=== PATIENT | female | born 1930 | race Caucasian/White ===

== ENCOUNTER 2016-09-21 14:06 | Emergency (ER) | payer MEDICARE, OTHER ==
[~2016-09-21] VITALS: Ht 157.5 cm; Wt 60.0 kg
[2016-09-21 14:23] VITALS: BP 136/62; PULSE 81; RESP 18; TEMP 98.1; O2SAT 98
--- NOTE | 2016-09-21 14:30 | PD ---
HPI Chief Complaint: chest pain Time Seen by Provider: 14:30 Travel History International Travel<30 days: No Contact w/Intl Traveler<30days: No Traveled to known affect area: No History of Present Illness HPI Patient was sent from the intermediate with history of chest pain. She has history of dementia and currently she says she does not have any chest pain and she never did. Patient does have history of chronic chest pain and has these complains very often. Here she looks in no distress. Vital signs are stable. Patient is on Plavix and aspirin daily. She is unable to give any meaningful history given her dementia. She is very pleasant however. [facility] Past Medical History Narrative Medical List of her past medical, surgical, social and family history was reviewed from the nursing note. Social History Tobacco Use: No Allergies-Medications Comments Unknown history of allergies Narrative Medication Awaiting for the nurse to do the medical reconciliation. Review of Systems Except as stated in HPI: all other systems reviewed are Neg Physical Exam Narrative GENERAL: Awake, alert, elderly, no obvious distress, dementia SKIN: Focused skin assessment warm/dry. HEAD: Atraumatic. Normocephalic. EYES: Pupils equal and round. No scleral icterus. No injection or drainage. ENT: No nasal bleeding or discharge. Mucous membranes pink and moist. NECK: Trachea midline. No JVD. CARDIOVASCULAR: Regular rate and rhythm. No murmur appreciated. RESPIRATORY: No accessory muscle use. Clear to auscultation. Breath sounds equal bilaterally. GASTROINTESTINAL: Abdomen soft, non-tender, nondistended. Hepatic and splenic margins not palpable. MUSCULOSKELETAL: No obvious deformities. No clubbing. No cyanosis. No edema. NEUROLOGICAL: Awake and alert and dementia. No obvious cranial nerve deficits. Motor grossly within normal limits. Normal speech. PSYCHIATRIC: Appropriate mood and affect; insight and judgment normal. Data Data Last Documented VS Vital Signs Date Time Temp Pulse Resp B/P Pulse Ox O2 Delivery O2 Flow Rate FiO2 09/21/16 18:00 90 18 143/65 98 Room Air 09/21/16 14:23 98.1 Orders Electrocardiogram (09/21/16 14:35) Basic Metabolic Panel (Bmp) (09/21/16 14:35) Ckmb (Isoenzyme) Profile (09/21/16 14:35) Complete Blood Count With Diff (09/21/16 14:35) Magnesium (Mg) (09/21/16 14:35) Prothrombin Time / Inr (Pt) (09/21/16 14:35) Act Partial Throm Time (Ptt) (09/21/16 14:35) Troponin I (09/21/16 14:35) Chest, Single Ap (09/21/16 14:35) Ecg Monitoring (09/21/16 14:35) Bilateral Bp Monitoring (09/21/16 14:35) Iv Access Insert/Monitor (09/21/16 14:35) Oximetry (09/21/16 14:35) Oxygen Administration (09/21/16 14:35) Labs Laboratory Tests Test 09/21/16 14:40 White Blood Count 8.4 TH/MM3 Red Blood Count 4.16 MIL/MM3 Hemoglobin 12.5 GM/DL Hematocrit 38.2 % Mean Corpuscular Volume 91.8 FL Mean Corpuscular Hemoglobin 30.0 PG Mean Corpuscular Hemoglobin 32.7 % Concent Red Cell Distribution Width 14.1 % Platelet Count 257 TH/MM3 Mean Platelet Volume 8.3 FL Neutrophils (%) (Auto) 63.3 % Lymphocytes (%) (Auto) 26.5 % Monocytes (%) (Auto) 9.0 % Eosinophils (%) (Auto) 0.6 % Basophils (%) (Auto) 0.6 % Neutrophils # (Auto) 5.3 TH/MM3 Lymphocytes # (Auto) 2.2 TH/MM3 Monocytes # (Auto) 0.8 TH/MM3 Eosinophils # (Auto) 0.0 TH/MM3 Basophils # (Auto) 0.0 TH/MM3 CBC Comment DIFF FINAL Differential Comment Prothrombin Time 10.5 SEC Prothromb Time International 1.0 RATIO Ratio Activated Partial 21.8 SEC Thromboplast Time Sodium Level 143 MEQ/L Potassium Level 3.6 MEQ/L Chloride Level 105 MEQ/L Carbon Dioxide Level 29.4 MEQ/L Anion Gap 9 MEQ/L Blood Urea Nitrogen 11 MG/DL Creatinine 0.64 MG/DL Estimat Glomerular Filtration 88 ML/MIN Rate Random Glucose 96 MG/DL Calcium Level 9.1 MG/DL Magnesium Level 2.4 MG/DL Total Creatine Kinase 52 U/L Troponin I LESS THAN 0.02 NG/ML MDM Medical Decision Making Medical Screen Exam Complete: Yes Emergency Medical Condition: Yes Medical Record Reviewed: Yes Interpretation(s) Twelve-lead EKG was reviewed by me. Normal sinus rhythm, normal axis, nonspecific ST-T wave changes. Heart rate of 62 bpm. Differential Diagnosis ACS, nonspecific chest Narrative Course 3:54 PM all her blood work is back and within normal limit. Chest x-rays within normal limit. I will discharge her back to the intermediate for her chronic chest pain. Procedures EKG Prior to Arrival: No Diagnosis Primary Impression: Atypical chest pain Referrals: Primary Care Physician 2 days Additional Instructions: Please return to the ER if the condition worsens or any other new concerns. Otherwise follow-up with your primary care. Med/Other Pt SpecificInfo: No Change to Meds Disposition: 01 DISCHARGE HOME Condition: Stable Geoff Dc MD Sep 21, 2016 14:30 Disposition: 01 DISCHARGE HOME Condition: Stable Geoff Dc MD Sep 21, 2016 14:30
[2016-09-21 14:35] VITALS: BP 136/62; PULSE 74; RESP 18; O2SAT 97
[2016-09-21 14:37] VITALS: RESP 18; O2SAT 97
[2016-09-21 15:05] LABS: AUTOMATED NEUTROPHIL # 5.3 TH/MM3 (1.8-7.7); BASOPHIL % 0.6 % (0.0-2.0); EOSINOPHIL % 0.6 % (0.0-4.0); HEMATOCRIT 38.2 % (35.0-46.0); HEMO FLAGS DIFF FINAL; LYMPH % 26.5 % (9.0-44.0); LYMPHOCYTE # 2.2 TH/MM3 (1.0-4.8); MEAN CELL VOLUME 91.8 FL (80.0-100.0); MEAN CORPUSCULAR HGB CONC 32.7 % (32.0-36.0); NEUT % 63.3 % (16.0-70.0); PLATELET COUNT 257 TH/MM3 (150-450); RED BLOOD COUNT 4.16 MIL/MM3 (4.00-5.30); RED CELL DISTRIBUTION WIDTH 14.1 % (11.6-17.2); WHITE BLOOD COUNT 8.4 TH/MM3 (4.0-11.0)
--- NOTE | 2016-09-21 15:14 | RADRPT ---
EXAM DATE/TIME: 09/21/2016 14:58 [facility] COMPARISON: No previous studies available for comparison. INDICATIONS : Chest pain. MEDICAL HISTORY : Hypothyroidism. Hypertension SURGICAL HISTORY : None. ENCOUNTER: Initial ACUITY: 1 day PAIN SCORE: Non-responsive. LOCATION: Bilateral chest FINDINGS: A single view of the chest demonstrates the lungs to be symmetrically aerated without evidence of mas s, infiltrate or effusion. The cardiomediastinal contours are unremarkable. Osseous structures are intact. CONCLUSION: 1. No acute abnormality. The lungs are clear. Chito Concepcion MD on September 21, 2016 at 15:12 Board Certified Radiologist. This report was verified electronically.
[2016-09-21 15:27] LABS: ANION GAP 9 MEQ/L (5-15); BICARBONATE 29.4 MEQ/L (21.0-32.0); BLOOD UREA NITROGEN 11 MG/DL (7-18); CHLORIDE 105 MEQ/L (98-107); GLOMERULAR FILTRATION RATE 88 ML/MIN (>89); MAGNESIUM 2.4 MG/DL (1.5-2.5); POTASSIUM 3.6 MEQ/L (3.5-5.1); SODIUM (NA) 143 MEQ/L (136-145)
[2016-09-21 15:33] LABS: CREATINE KINASE 52 U/L (26-192)
[2016-09-21 15:39] LABS: APTT (PATIENT) 21.8 SEC (24.3-30.1); PROTHROMBIN TIME - PATIENT 10.5 SEC (9.8-11.6)
[2016-09-21 16:00] VITALS: BP 124/59; PULSE 58; RESP 18; O2SAT 97
[2016-09-21 18:00] VITALS: BP 143/65; PULSE 90; RESP 18; O2SAT 98
--- NOTE | 2016-09-22 10:34 | EKG ---
Date Performed: 09/21/2016 Time Performed: 14:53:49 PTAGE: 86 years EKG: Sinus rhythm NORMAL ECG NO PREVIOUS TRACING DOCTOR: Divya Arreola Interpretating Date/Time 09/22/2016 10:27:25
== END 2016-09-21 18:12 | disposition home or self-care (01) ==
LOC: NEPC 14:06
DX: R07.89 Other chest pain (principal); F03.90 Unspecified dementia, unspecified severity, without behavioral disturbance, psychotic disturbance, mood disturbance, and anxiety
CPT/HCPCS: 71010; 80048; 82550; 83735; 84484; 85025; 85610; 85730; 93005

== ENCOUNTER 2017-01-08 11:32 | Observation (INO) | payer MEDICARE, OTHER ==
[2017-01-08] VITALS (7 sets, daily range): BP systolic 112–201; BP diastolic 54–86; PULSE 57–69; RESP 16–22; TEMP 97.5–98.5; O2SAT 95–99
[~2017-01-08] VITALS: Ht 152.4 cm; Wt 44.0 kg
--- NOTE | 2017-01-08 11:50 | PD ---
HPI Chief Complaint: Syncope/Near-Syncope Time Seen by Provider: 11:47 Travel History International Travel<30 days: No Contact w/Intl Traveler<30days: No History of Present Illness HPI 86-year-old elderly female presents to the emergency department via EMS for evaluation after syncopal episode that occurred prior to arrival. Patient has history of dementia and is not a reliable historian. According to EMS, the staff at the nursing facility reported that she may have had a seizure and had incontinence. However, she was not postictal it has no seizure history. The patient is alert and oriented to self only. 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 Dr. James came in to see patient and states patient was having periods of unresponsiveness and seizure activity with incontinence. He states patient is at her baseline now mentally. He would like workup completed and admitted. PFSH Past Medical History Hx Anticoagulant Therapy: Yes Alzheimer's Disease: Yes Cardiovascular Problems: Yes High Cholesterol: Yes Dementia: Yes Diabetes: No Hypertension: Yes Thyroid Disease: Yes Social History Alcohol Use: No Tobacco Use: No Substance Use: No Review of Systems Except as stated in HPI: all other systems reviewed are Neg Physical Exam Exam Limitations: Poor Historian Narrative GENERAL: Well-nourished, well-developed elderly female patient, afebrile. Patient is alert and oriented to self only. SKIN: Focused skin assessment warm/dry. HEAD: Normocephalic. Atraumatic. EYES: No scleral icterus. No injection or drainage. NECK: Supple, trachea midline. No JVD or lymphadenopathy. CARDIOVASCULAR: Regular rate and rhythm without murmurs, gallops, or rubs. RESPIRATORY: Breath sounds equal bilaterally. No accessory muscle use. Lungs sounds are clear to auscultation. GASTROINTESTINAL: Abdomen soft, non-tender, nondistended. MUSCULOSKELETAL: No cyanosis, or edema. Patient moves all extremities spontaneously. She does not follow commands. BACK: Nontender without obvious deformity. No CVA tenderness. Data Data Last Documented VS Vital Signs Date Time Temp Pulse Resp B/P Pulse Ox O2 Delivery O2 Flow Rate FiO2 01/08/17 13:13 69 01/08/17 12:02 150/66 01/08/17 11:42 97.5 22 99 Orders Electrocardiogram (01/08/17 11:45) Complete Blood Count With Diff (01/08/17 11:45) Comprehensive Metabolic Panel (01/08/17 11:45) Magnesium (Mg) (01/08/17 11:45) Ckmb (Isoenzyme) Profile (01/08/17 11:45) Troponin I (01/08/17 11:45) Act Partial Throm Time (Ptt) (01/08/17 11:45) Prothrombin Time / Inr (Pt) (01/08/17 11:45) Urinalysis - C+S If Indicated (01/08/17 11:45) Chest, Single Ap (01/08/17 11:45) Ct Brain W/O Iv Contrast(Rout) (01/08/17 11:45) Ecg Monitoring (01/08/17 11:45) Iv Access Insert/Monitor (01/08/17 11:45) Oximetry (01/08/17 11:45) Cath For Specimen (01/08/17 11:45) Labs Laboratory Tests Test 01/08/17 01/08/17 11:50 12:25 White Blood Count 10.0 TH/MM3 Red Blood Count 3.96 MIL/MM3 Hemoglobin 12.3 GM/DL Hematocrit 37.0 % Mean Corpuscular Volume 93.5 FL Mean Corpuscular Hemoglobin 31.1 PG Mean Corpuscular Hemoglobin 33.2 % Concent Red Cell Distribution Width 14.2 % Platelet Count 315 TH/MM3 Mean Platelet Volume 7.9 FL Neutrophils (%) (Auto) 63.3 % Lymphocytes (%) (Auto) 25.7 % Monocytes (%) (Auto) 10.3 % Eosinophils (%) (Auto) 0.3 % Basophils (%) (Auto) 0.4 % Neutrophils # (Auto) 6.3 TH/MM3 Lymphocytes # (Auto) 2.6 TH/MM3 Monocytes # (Auto) 1.0 TH/MM3 Eosinophils # (Auto) 0.0 TH/MM3 Basophils # (Auto) 0.0 TH/MM3 CBC Comment DIFF FINAL Differential Comment Prothrombin Time 10.2 SEC Prothromb Time International 0.9 RATIO Ratio Activated Partial 22.9 SEC Thromboplast Time Sodium Level 138 MEQ/L Potassium Level 3.4 MEQ/L Chloride Level 102 MEQ/L Carbon Dioxide Level 27.7 MEQ/L Anion Gap 8 MEQ/L Blood Urea Nitrogen 12 MG/DL Creatinine 0.66 MG/DL Estimat Glomerular Filtration 85 ML/MIN Rate Random Glucose 80 MG/DL Calcium Level 9.0 MG/DL Magnesium Level 2.2 MG/DL Total Bilirubin 0.4 MG/DL Aspartate Amino Transf 20 U/L (AST/SGOT) Alanine Aminotransferase 17 U/L (ALT/SGPT) Alkaline Phosphatase 49 U/L Total Creatine Kinase 52 U/L Troponin I LESS THAN 0.02 NG/ML Total Protein 6.8 GM/DL Albumin 3.6 GM/DL Urine Color YELLOW Urine Turbidity CLEAR Urine pH 6.5 Urine Specific [place] 1.011 Urine Protein NEG mg/dL Urine Glucose (UA) NEG mg/dL Urine Ketones NEG mg/dL Urine Occult Blood TRACE Urine Nitrite NEG Urine Bilirubin NEG Urine Urobilinogen LESS THAN 2.0 MG/DL Urine Leukocyte Esterase NEG Urine RBC 3 /hpf Urine WBC 1 /hpf Urine Squamous Epithelial <1 /hpf Cells Microscopic Urinalysis Comment CULT NOT INDICATED MDM Medical Decision Making Medical Screen Exam Complete: Yes Emergency Medical Condition: Yes Medical Record Reviewed: Yes Interpretation(s) cxr - CONCLUSION: No acute disease. CT brain - CONCLUSION: 1. No acute intracranial abnormality is identified. 2. Encephalomalacia in the left parietal lobe likely related to old ischemia. Other chronic changes include generalized atrophy and periventricular white matter low attenuation characteristic of chronic microvascular ischemia. Differential Diagnosis Intracranial abnormality versus electrolyte abnormality versus cardiac arrhythmia versus ACS versus UTI Narrative Course 86-year-old elderly female presents to the emergency department for evaluation after a syncopal episode and possible seizure. Patient is alert and oriented to self only. Patient is a poor historian. EKG, CBC, CMP, magnesium, CK, troponin, PTT, PTT/INR, UA are ordered and pending. Chest x-ray and CT of the brain are ordered and pending. EKG shows sinus bradycardia, HR [address] changes. CBC shows no acute abnormality. CMP shows no acute abnormality. Magnesium is 2.2. CK is 52. Troponin is less than 0.02. Coags show no acute abnormality. UA is negative for acute infection. Chest x-ray shows no acute disease. CT of the brain shows no acute intracranial abnormality is identified; encephalomalacia in the left parietal lobe likely related to old ischemia. Other chronic changes include generalized atrophy and periventricular white matter low attenuation characteristic of chronic microvascular ischemia. Dr. James accepted admission. Diagnosis Primary Impression: Syncope Qualified Code: R55 - Syncope, unspecified syncope type Admitting Information Admitting Physician Requests: Observation Dara Moran Jan 08, 2017 11:50
[2017-01-08 12:08] LABS: AUTOMATED NEUTROPHIL # 6.3 TH/MM3 (1.8-7.7); BASOPHIL % 0.4 % (0.0-2.0); EOSINOPHIL % 0.3 % (0.0-4.0); HEMO FLAGS DIFF FINAL; LYMPH % 25.7 % (9.0-44.0); LYMPHOCYTE # 2.6 TH/MM3 (1.0-4.8); MEAN CELL VOLUME 93.5 FL (80.0-100.0); MEAN CORPUSCULAR HEMOGLOBIN 31.1 PG (27.0-34.0); MEAN CORPUSCULAR HGB CONC 33.2 % (32.0-36.0); MONO % 10.3 % (0.0-8.0); NEUT % 63.3 % (16.0-70.0); PLATELET COUNT 315 TH/MM3 (150-450); RED BLOOD COUNT 3.96 MIL/MM3 (4.00-5.30); RED CELL DISTRIBUTION WIDTH 14.2 % (11.6-17.2)
[2017-01-08 12:22] LABS: APTT (PATIENT) 22.9 SEC (24.3-30.1); INTERNATIONAL NORMALIZED RATIO 0.9 RATIO; PROTHROMBIN TIME - PATIENT 10.2 SEC (9.8-11.6)
[2017-01-08 12:25] LABS: ALT (GPT) 17 U/L (10-53); ANION GAP 8 MEQ/L (5-15); AST (GOT) 20 U/L (15-37); BICARBONATE 27.7 MEQ/L (21.0-32.0); BLOOD UREA NITROGEN 12 MG/DL (7-18); CHLORIDE 102 MEQ/L (98-107); GLOMERULAR FILTRATION RATE 85 ML/MIN (>89); MAGNESIUM 2.2 MG/DL (1.5-2.5); POTASSIUM 3.4 MEQ/L (3.5-5.1); SODIUM (NA) 138 MEQ/L (136-145)
[2017-01-08 12:28] LABS: ALKALINE PHOSPHATASE 49 U/L (45-117); TOTAL BILIRUBIN ADULT 0.4 MG/DL (0.2-1.0)
[2017-01-08 12:39] LABS: CREATINE KINASE 52 U/L (26-192)
--- NOTE | 2017-01-08 12:47 | RADRPT ---
EXAM DATE/TIME: 01/08/2017 11:58 [facility] COMPARISON: No previous studies available for comparison. INDICATIONS : Shortness of breath. MEDICAL HISTORY : None. SURGICAL HISTORY : None. ENCOUNTER: Initial ACUITY: 1 day PAIN SCORE: Non-responsive. LOCATION: Bilateral chest FINDINGS: A single view of the chest demonstrates the lungs to be symmetrically aerated without evidence of mas s, infiltrate or effusion. The cardiomediastinal contours are unremarkable. Osseous structures are intact. CONCLUSION: No acute disease. Darrin Kirkland MD on January 08, 2017 at 12:46 Board Certified Radiologist. This report was verified electronically.
--- NOTE | 2017-01-08 13:05 | RADRPT ---
EXAM DATE/TIME: 01/08/2017 12:39 [facility] COMPARISON: No previous studies available for comparison. INDICATIONS : Syncopal episode today. RADIATION DOSE: 56.35 CTDIvol (mGy) MEDICAL HISTORY : Cardiovascular disease. Alzheimer's. Dementia.Hypertension. SURGICAL HISTORY : None. ENCOUNTER: Initial ACUITY: 1 day PAIN SCALE: 0/10 LOCATION: cranial TECHNIQUE: Multiple contiguous axial images were obtained of the head. Using automated exposure control and adj ustment of the mA and/or kV according to patient size, radiation dose was kept as low as reasonably a chievable to obtain optimal diagnostic quality images. DICOM format image data is available electro nically for review and comparison. FINDINGS: CEREBRUM: There is moderate generalized cerebral atrophy. Ventricles are prominent but within normal limits giv en the degree of atrophy present. There is ex vacuo dilatation of the left lateral ventricle posterio rly related to encephalomalacia in the left parietal lobe. There is moderate to severe periventricula r white matter low attenuation. No evidence of midline shift, mass lesion, hemorrhage or acute infarc tion. No extra-axial fluid collections are seen. POSTERIOR FOSSA: The cerebellum and brainstem demonstrate no acute finding. The 4th ventricle is midline. The cerebe llopontine angle is unremarkable. EXTRACRANIAL: Visualized sinuses are clear. SKULL: The calvaria is intact. No evidence of skull fracture. CONCLUSION: 1. No acute intracranial abnormality is identified. 2. Encephalomalacia in the left parietal lobe likely related to old ischemia. Other chronic changes i nclude generalized atrophy and periventricular white matter low attenuation characteristic of chronic microvascular ischemia. Oscar Rich MD on January 08, 2017 at 13:01 Board Certified Radiologist. This report was verified electronically.
[2017-01-08 13:26] LABS: BLOOD, URINE TRACE (NEG); COMMENT (UR) CULT NOT INDICATED; CULTURE IF INDICATED CULT NOT INDICATED; GLUCOSE,URINE NEG (NEG); KETONE, URINE NEG (NEG); NITRITE,URINE NEG (NEG); PH, URINE 6.5 (5.0-8.5); SQUAMOUS EPITHELIAL CELL URINE <1 /hpf (0-5); URINE COLOR YELLOW (YELLW/STRAW)
[2017-01-08] MEDS ORDERED: MAGNESIUM HYDROXIDE SUSP 30 ML CUP PO PRN (14:00)
[2017-01-08] MEDS ORDERED: SODIUM CHLORIDE 0.9% FLUSH 10 ML FLUSH IV FLUSH PRN (14:00)
[2017-01-08] MEDS ORDERED: BISACODYL 10 MG SUPP RECTAL PRN (14:00)
[2017-01-08] MEDS ORDERED: NALOXONE HCL 0.4 MG/ML AMP IV PRN (14:00)
[2017-01-08] MEDS: SODIUM CHLOR 0.45% 1000 ML INJ 1,000 ML IV SCH (14:00)
[2017-01-08] MEDS ORDERED: SENNOSIDES 8.6 MG TAB PO PRN (14:00)
[2017-01-08] MEDS ORDERED: LACTULOSE SYRUP 20 GM/30 ML CUP PO PRN (14:00)
[2017-01-08] MEDS ORDERED: ONDANSETRON HCL 4 MG/2 ML VIAL IVP PRN (14:00)
[2017-01-08] MEDS ORDERED: LEVO.05 PO (14:11)
[2017-01-08] MEDS ORDERED: PLAV75TA29 PO (14:11)
[2017-01-08] MEDS ORDERED: LOVA10TA PO (14:11)
[2017-01-08] MEDS ORDERED: NAME5TAB2 PO (14:11)
[2017-01-08] MEDS ORDERED: ASPI1TAB91 PO (14:11)
[2017-01-08] MEDS ORDERED: LACT10SO5 PO (14:11)
[2017-01-08] MEDS ORDERED: ARIC5TAB2 PO (14:11)
[2017-01-08] MEDS ORDERED: LISI20TA PO (14:11)
[2017-01-08] MEDS ORDERED: NIFE30TA61 PO (14:11)
[2017-01-08] MEDS ORDERED: LORA-392 PO ×2 (14:11)
--- NOTE | 2017-01-08 14:18 | HP.UPD ---
H&P Update Note seen, examined by myself, Dr James, today the emergency department room c 36 A 86-year-old female resident of a local group home She has a history of dementia No history of seizure Had numerous episodes this morning of minutes of unresponsiveness while sitting on the wheelchair with shaking her arms and her head Associated urinary incontinence No post ictal phase Alert between episodes Blood pressure significantly elevated He denies any specific complaints Head CT negative Workup otherwise negative We'll place on observation EEG Neurology evaluation Urinalysis with culture Full history and physical to follow Lorraine James MD Jan 08, 2017 14:15
[2017-01-08] MEDS ORDERED: POTASSIUM CHLORIDE 25 MEQ EFFERVESCENT TAB PO ONE (14:30)
--- NOTE | 2017-01-08 14:52 | HHI.PR ---
Objective Objective Results - Vital Signs Date Time Temp Pulse Resp B/P Pulse Ox O2 Delivery O2 Flow Rate FiO2 01/08/17 13:13 69 01/08/17 12:02 150/66 01/08/17 11:42 97.5 60 22 201/86 99 Result Diagram: 01/08/17 1150 01/08/17 1150 A/P Assessment and Plan Hypokalemia treated with PO Potassium, recheck BMP in am. [id number] Lety CoronelP Jan 08, 2017 14:52
--- NOTE | 2017-01-08 16:10 | MH ---
cc: JOAO FUNK MD DATE OF ADMISSION: 01/08/2017 DATE OF : 1930 TRAVEL: Travel in the last 30 days, none. HISTORY OF PRESENT ILLNESS This is a pleasant 86-year-old patient with Alzheimer's dementia. She currently is in a assisted setting, she was be evaluated this morning per Dr. Funk and some of the staff. When the patient appeared to be having seizures, accompanied with recurrent urinary incontinence, the patient does have a significant history of a cerebrovascular accident with right -sided deficits and Alzheimer's dementia. According to the record the patient was not post ictal but has no history of seizures. The patient was also having periods of unresponsiveness with seizure activity, The patient is denies any headache. She suffers from chronic altered mental status secondary to her dementia. FAMILY HISTORY: Family history is basically unable to obtain. PAST MEDICAL HISTORY: 1. Unable to obtain. According to the record the medical history; 2. Alzheimer's dementia. 3. History of anticoagulant therapy. 4. Cardiovascular disease. 5. Hyperlipidemia 6. Dementia 7. hypotension 8. Thyroid disease. SOCIAL HISTORY: The patient did say she was , denies any tobacco, alcohol or illicit drug use which she is also agreeable with the record. ALLERGIES NO KNOWN ALLERGIES. MEDICATIONS 1. Lactulose. 2. Lisinopril 3. Hydrochlorothiazide. 4. Lorazepam. 5. Namenda 6. Nifedipine 7. Lovastatin 8. Aspirin 9. Aricept 10. Plavix 11. Synthroid. REVIEW OF SYSTEMS Unable to obtain secondary to altered mental status. Secondary to her dementia. PHYSICAL EXAMINATION: VITAL SIGNS: Temperature is 97, pulse 60, respirations 20-22, blood pressure initially on admission 201/86 and now 150/66. Telemetry shows a sinus rhythm in the 60s to 80s, O2 sat 99. The patient is on room air. IN GENERAL: Thin, borderline frail, elderly white female, looks to be her stated age resting in the bed. She does attempt to answer questions, and becomes conversational, but is disoriented to person, place, time and situation. The patient was having periods of unresponsiveness, and seizure activity. SKIN: The skin is pink, warm and dry. HEAD, EYES, EARS, NOSE, AND THROAT: Atraumatic, normocephalic. Pupils equal, round, reactive to light and accommodation. No square least with no week she does eat. NECK: Neck is supple. CARDIOVASCULAR SYSTEM: S1-S2 regular rate and rhythm. No murmurs were O2 gallops probable. RESPIRATORY: Essentially clear anteriorly and posteriorly with no wheezes, rales or rhonchi. ABDOMEN: Flat, soft, nontender, nondistended. Active bowel sounds. 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 NEUROLOGY: Neurologically she is awake, responds to simple questions, pleasantly and appropriately. She does attempt to get up on her own, out of the bed. PSYCHIATRIC: Psychiatric mood and affect are appropriate without restlessness. DIAGNOSTIC DATA White blood count 10, red blood cells 3.96. Hemoglobin 12.3, hematocrit 37. Differential blood count shows monocyte percentage auto 10.3, otherwise negative findings. PT/INR 0.9. Chemistry sodium 138, potassium to report for chloride 102 carbon dioxide 27.7, amnion gap 8, BUN 12, creatinine 0.66, GFR 80. Random glucose 80, troponin is less than 0.02. Urine is yellow clear, pH 6.5, specific gravity 1.011 and negative for protein, glucose, ketones, nitrates, bilirubin and leukocyte esterase. Trace of occult blood less than two urobilinogen. Urinary culture is not needed. Head CT shows no acute intracranial abnormalities, encephalomalacia in left parietal lobe, likely related to old ischemia. Other chronic changes include generalized atrophy and Periventricular white matter, low attenuation, characteristic of chronic microvascular ischemia. Chest x-ray No acute disease. ASSESSMENT/PLAN 1. Seizure disorder, witnessed. 2. Possible syncopal episode, unspecified. Rule out any dysrhythmia. 3. Hypokalemia mild. 4. History Alzheimer's dementia. 5. Hyperlipidemia. 6. Hypertension, uncontrolled on admission. PLAN: 1. The plan is to admit initially for observation. 2. We will monitor ECG 3. Reconcile medications 4. Monitor for vital signs q four hours. 5. Neurologic checks q four hours. 6. Activity; out of bed but only with assistance. 7. Placed on heart healthy diet. 8. Sequential compression devices for DVT prophylaxis. 9. We will give her Pepcid for peptic ulcer disease prophylaxis. 10. Maintaining her on telemetry and/or ECG monitoring. 11. Plan of care; mild IV hydration. 12. Plan of care and hospital course will be based on the patient's symptoms, the plan has been discussed with Dr. Funk and we will continue to follow. Joao Funk MD DICTATED BY: CANDY Alexis /2:46 PM /3:08 PM
[2017-01-08] MEDS: DOCUSATE SODIUM 50 MG/SENNA 8.6 MG TAB PO SCH (20:59)
[2017-01-08] MEDS: SODIUM CHLORIDE 0.9% FLUSH 10 ML FLUSH IV FLUSH SCH (21:00)
[2017-01-08] MEDS ORDERED: LACTULOSE PO SCH (21:00)
[2017-01-08] MEDS ORDERED: DONEPEZIL HCL 5 MG TAB PO SCH (21:00)
[2017-01-08] MEDS: PRAVASTATIN SOD 10 MG TAB PO SCH (21:00)
[2017-01-08] MEDS: NIFEdipine 30 MG SUSTAINED RELEASE TAB PO SCH (21:00)
[2017-01-08] MEDS: MEMANTINE HCL 5 MG TAB PO SCH (23:09)
[2017-01-09] VITALS (11 sets, daily range): BP systolic 109–154; BP diastolic 49–69; PULSE 46–65; RESP 14–20; TEMP 95.9–98.9; O2SAT 95–100
[2017-01-09] MEDS: SODIUM CHLOR 0.45% 1000 ML INJ 1,000 ML IV SCH ×2 (02:58→16:40)
[2017-01-09 06:06] LABS: BICARBONATE 24.6 MEQ/L (21.0-32.0); POTASSIUM 3.7 MEQ/L (3.5-5.1)
[2017-01-09 06:18] LABS: AUTOMATED NEUTROPHIL # 4.9 TH/MM3 (1.8-7.7); BASOPHIL % 0.5 % (0.0-2.0); EOSINOPHIL # 0.1 TH/MM3 (0-0.4); HEMATOCRIT 34.2 % (35.0-46.0); HEMO FLAGS DIFF FINAL; LYMPH % 33.3 % (9.0-44.0); LYMPHOCYTE # 2.9 TH/MM3 (1.0-4.8); MEAN CELL VOLUME 91.3 FL (80.0-100.0); MEAN CORPUSCULAR HEMOGLOBIN 30.9 PG (27.0-34.0); MEAN CORPUSCULAR HGB CONC 33.8 % (32.0-36.0); MONO % 9.9 % (0.0-8.0); NEUT % 55.3 % (16.0-70.0); PLATELET COUNT 260 TH/MM3 (150-450); RED BLOOD COUNT 3.74 MIL/MM3 (4.00-5.30); RED CELL DISTRIBUTION WIDTH 13.8 % (11.6-17.2); WHITE BLOOD COUNT 8.8 TH/MM3 (4.0-11.0)
[2017-01-09] MEDS: LEVOTHYROXINE SODIUM 50 MCG TAB PO SCH (06:27)
--- NOTE | 2017-01-09 08:03 | HHI.PR ---
Subjective Subjective Remarks demented, pleasant, oriented to self follows commands poor historian daughter at [facility], endorses hx of similar episodes in the past. Evaluated at [facility], neuro work up, not sure on EEG. Has never been tried on seizure meds. At one point they thought it was stress vs vascular dementia progression. Takes Ativan for anxiety and panic attacks. States she has frequent episodes where she starts shaking then becomes very tired and almost passes out. Yesterday's was more severe. noted with bradycardia overnight, HR down to 39. Not on any meds, no prior hx, doesn't see ext js developer. Daughter endorses, pt. demented but able to feed self, ambulates with assistance , recognizes family. Review of Systems Constitutional Constitutional Remarks 12 point ros unable to obtain Vitals/Results Intake & Output 01/08/17 01/08/17 01/09/17 15:00 23:00 07:00 Intake Total 1234 ml Balance 1234 ml Intake Oral 120 ml IV Total 1114 ml # Voids 3 Vital Signs Vital Signs Date Time Temp Pulse Resp B/P Pulse Ox O2 Delivery O2 Flow Rate FiO2 01/09/17 03:14 97.8 46 16 141/65 100 01/09/17 00:00 47 01/08/17 23:12 98.0 57 17 127/81 95 01/08/17 19:46 98.2 57 16 112/54 96 01/08/17 15:21 76 18 165/74 100 01/08/17 13:30 98.5 63 16 150/70 99 01/08/17 13:13 69 01/08/17 12:02 150/66 01/08/17 11:42 97.5 60 22 201/86 99 CBC/BMP: 01/09/17 0430 01/09/17 0430 Lab Results Laboratory Tests Test 01/08/17 01/08/17 01/09/17 11:50 12:25 04:30 White Blood Count 10.0 TH/MM3 8.8 TH/MM3 Red Blood Count 3.96 MIL/MM3 3.74 MIL/MM3 Hemoglobin 12.3 GM/DL 11.6 GM/DL Hematocrit 37.0 % 34.2 % Mean Corpuscular Volume 93.5 FL 91.3 FL Mean Corpuscular Hemoglobin 31.1 PG 30.9 PG Mean Corpuscular Hemoglobin 33.2 % 33.8 % Concent Red Cell Distribution Width 14.2 % 13.8 % Platelet Count 315 TH/MM3 260 TH/MM3 Mean Platelet Volume 7.9 FL 8.6 FL Neutrophils (%) (Auto) 63.3 % 55.3 % Lymphocytes (%) (Auto) 25.7 % 33.3 % Monocytes (%) (Auto) 10.3 % 9.9 % Eosinophils (%) (Auto) 0.3 % 1.0 % Basophils (%) (Auto) 0.4 % 0.5 % Neutrophils # (Auto) 6.3 TH/MM3 4.9 TH/MM3 Lymphocytes # (Auto) 2.6 TH/MM3 2.9 TH/MM3 Monocytes # (Auto) 1.0 TH/MM3 0.9 TH/MM3 Eosinophils # (Auto) 0.0 TH/MM3 0.1 TH/MM3 Basophils # (Auto) 0.0 TH/MM3 0.0 TH/MM3 CBC Comment DIFF FINAL DIFF FINAL Differential Comment Prothrombin Time 10.2 SEC Prothromb Time International 0.9 RATIO Ratio Activated Partial 22.9 SEC Thromboplast Time Sodium Level 138 MEQ/L 134 MEQ/L Potassium Level 3.4 MEQ/L 3.7 MEQ/L Chloride Level 102 MEQ/L 101 MEQ/L Carbon Dioxide Level 27.7 MEQ/L 24.6 MEQ/L Anion Gap 8 MEQ/L 8 MEQ/L Blood Urea Nitrogen 12 MG/DL 11 MG/DL Creatinine 0.66 MG/DL 0.58 MG/DL Estimat Glomerular Filtration 85 ML/MIN 99 ML/MIN Rate Random Glucose 80 MG/DL 88 MG/DL Calcium Level 9.0 MG/DL 8.6 MG/DL Magnesium Level 2.2 MG/DL Total Bilirubin 0.4 MG/DL Aspartate Amino Transf 20 U/L (AST/SGOT) Alanine Aminotransferase 17 U/L (ALT/SGPT) Alkaline Phosphatase 49 U/L Total Creatine Kinase 52 U/L Troponin I LESS THAN 0.02 NG/ML Total Protein 6.8 GM/DL Albumin 3.6 GM/DL Urine Color YELLOW Urine Turbidity CLEAR Urine pH 6.5 Urine Specific [place] 1.011 Urine Protein NEG mg/dL Urine Glucose (UA) NEG mg/dL Urine Ketones NEG mg/dL Urine Occult Blood TRACE Urine Nitrite NEG Urine Bilirubin NEG Urine Urobilinogen LESS THAN 2.0 MG/DL Urine Leukocyte Esterase NEG Urine RBC 3 /hpf Urine WBC 1 /hpf Urine Squamous Epithelial <1 /hpf Cells Microscopic Urinalysis Comment CULT NOT INDICATED Physical Exam General General Appearance: Well Developed, Well Nourished, No Acute Distress, Comfortable Eyes Eye Exam: Pupils Equal, Pupils Reactive Ears & Nose Ears & Nose Exam: Nasal Mucosa [place] Throat Throat Exam: Oral Mucosa [place] & Moist Neck Neck Exam: Neck Supple, Trachea Midline Pulmonary Resp Exam: Clear Bilaterally Cardiology CV Exam: Regular, Good Perfusion, Bradycardia Gastrointestinal/Abdomen GI Exam: Soft, Non-Tender, Bowel Sounds Present, Non-Distended Musculoskeletal MS Exam: Joints Intact Integumentary Skin Exam: Warm, Dry Extremeties Extremities Exam: No Edema, Pedal Pulses Palpable Neurologic Neuro Exam: Alert, Awake, Speech Clear, Moving All Extremities, No Focal Deficits VTE Prophylaxis VTE Prophylaxis Device: SCDs Assessment/Plan Problem List: (1) Seizure (2) Syncope (3) Bradycardia (4) Dementia (5) Hypertension (6) History of CVA with residual deficit (7) Hypothyroid (8) Anxiety (9) Hyperlipidemia Assessment/Plan 86-year-old elderly female with history of periods of shaking with unresponsiveness, possible syncope, has had frequent episodes in the past with neuro workup at another facility. Possible new onset seizures-patient's daughter [facility], has never been on antiseizure medications. History of CVA with residual -Continue neuro checks Seizure precautions Restart Ativan 0.5 mg by mouth every 8 when necessary for anxiety, seizure -Consult neurology for evaluation Continuous cardiac telemetry EEG -Check carotid ultrasound We'll check TSH, B12, RPR -Continue Plavix and aspirin Possible syncope, noted bradycardic, patient is not on any beta blockers Continue his cardiac telemetry Consult cardiology for evaluation 2-D echo has been ordered Dementia Continue home medications Hypothyroid We'll check TSH Continue home medication Hypertension, initially elevated now improved Continue with home medications Hyperlipidemia Continue with home medications SCDs for DVT prophylaxis Consult physical therapy for evaluation, out of bed We will wait for further recommendations from cardiology and neurology. Patient not ready for discharge Discussed with patient's daughter Discussed with RN Discussed with Dr. Morris This patient was seen by myself and Dr. Morris, this note is written on her behalf Problem Qualifiers (1) Syncope: Qualified Code: R55 - Syncope, unspecified syncope type (2) Dementia: (3) Hypertension: Qualified Code: I10 - Essential hypertension (4) Hypothyroid: Qualified Code: E03.9 - Hypothyroidism, unspecified type (5) Hyperlipidemia: Qualified Code: E78.5 - Hyperlipidemia, unspecified hyperlipidemia type Miguelina Gee Jan 09, 2017 08:03
[2017-01-09] MEDS: SODIUM CHLORIDE 0.9% FLUSH 10 ML FLUSH IV FLUSH SCH ×2 (09:00→20:27)
[2017-01-09] MEDS ORDERED: NON-FORMULARY DRUG (Lisinopril-Hctz 1 TAB) PO SCH (09:00)
[2017-01-09] MEDS: LISINOPRIL 20 MG TAB PO SCH (09:12)
[2017-01-09] MEDS: DOCUSATE SODIUM 50 MG/SENNA 8.6 MG TAB PO SCH ×2 (09:12→20:26)
[2017-01-09] MEDS: CLOPIDOGREL 75 MG TAB PO SCH (09:12)
[2017-01-09] MEDS: MEMANTINE HCL 5 MG TAB PO SCH ×2 (09:12→20:26)
[2017-01-09] MEDS: HYDROCHLOROTHIAZIDE 25 MG TAB PO SCH (09:12)
[2017-01-09] MEDS: ASPIRIN EC 81 MG TABEC PO SCH (09:12)
--- NOTE | 2017-01-09 09:48 | RADRPT ---
EXAM DATE/TIME: 01/09/2017 08:43 [place] COMPARISON: No previous studies available for comparison. INDICATIONS : Syncope. MEDICAL HISTORY : Hyperthyroidism. Dementia. Alzheimer's. CVA with right sided deficits. Hypercholesterolemia. HTN. UTI s. Anticoagulant therapy. SURGICAL HISTORY : None. ENCOUNTER: Initial ACUITY: 2 days PAIN SCORE: Nonresponsive. LOCATION: Bilateral neck PEAK SYSTOLIC VELOCITIES (cm/sec): ICA/CCA RATIO: Right: 1.0 Left: 0.9 ICA: Right: 78 Left: 72 CCA: Right: 75 Left: 82 ECA: Right: 84 Left: 87 VERTEBRAL: Right: 48 antegrade Left: 62 antegrade Elevated flow velocities and ICA/CCA ratios have been found to correlate with increased degrees of vessel stenosis, calculated as percentage of diameter relative to a normal segment of distal ICA/CCA FINDINGS: Antegrade flow is seen in both vertebral arteries. There is mild atherosclerotic plaquing at the orig in of both ICAs without any significant stenosis. CONCLUSION: No evidence for hemodynamically significant stenosis. John Willingham MD on January 09, 2017 at 9:46 Board Certified Radiologist. This report was verified electronically.
--- NOTE | 2017-01-09 12:29 | EKG ---
Date Performed: 01/08/2017 Time Performed: 12:22:35 PTAGE: 86 years EKG: SINUS BRADYCARDIA Since previous tracing, no significant change noted BORDERLINE ECG PREVIOUS TRACING : 09/21/2016 14.53 DOCTOR: Juan David Fontenot Interpretating Date/Time 01/09/2017 12:24:37
--- NOTE | 2017-01-09 16:14 | MB ---
cc: JACOBO STAUFFER MD DATE OF CONSULTATION 01/09/17 REASON FOR CONSULTATION Bradycardia. HISTORY OF PRESENT ILLNESS Ms. Odom is a pleasant 86-year-old female who has dementia. Her history was given by her daughter. She apparently has been having episodes where the patient staggers and shakes. Recently, she has had some accompanying urinary incontinence. The patient denies any other cardiac complaints. The daughter notes that her heart rate in the past typically had been around 60. She reports that she has not had any significant cardiac history. PAST MEDICAL HISTORY Significant for dementia, hyperlipidemia and hypothyroidism. SOCIAL HISTORY The patient does not drink or smoke. She lives in a long-term. REVIEW OF SYSTEMS Unobtainable. FAMILY HISTORY Unobtainable. PHYSICAL EXAMINATION VITAL SIGNS: On physical examination vital signs 98.5, 52, 14, 137/63. GENERAL: in general, she is a pleasantly confused elderly lady who is in no apparent distress. NECK: Her neck is free from JVD. LUNGS: The lungs are bilaterally clear to auscultation. CARDIOVASCULAR: Examination she has a normal S1-S2. I did not appreciate any murmurs, rubs or gallops. ABDOMEN: The abdomen is soft. EXTREMITIES: The extremities are free from edema. DATA Telemetry-this does show periods of bradycardia down around 40. I did not appreciate any pauses. IMPRESSION Bradycardia-the patient has been on Aricept which is known to cause bradycardia. I would simply discontinue this. I do not feel that she needs to be observed any further in the hospital at this point. I will follow up with her as an outpatient. It is not clear as we have not been able to establish direct correlation with her events, as to whether they are related to cardiac etiology. At this point there does not appear to be any direct correlation. Hypertension-the patient's blood pressure is a bit labile. We will observe this for now. May wish to increase the lisinopril. I will be available on a p.r.n. basis. Cris Quinones/[place] /2:48 PM /4:08 PM
--- NOTE | 2017-01-09 18:38 | MB ---
cc: LATRELL MENDIOLA MD DATE OF CONSULTATION: 01/09/2017. REASON FOR CONSULTATION: Seizures. HISTORY OF PRESENT ILLNESS: Mrs. Odom is an 86-year-old female with history of dementia. Her daughter is at the bedside and states that she has had a possible seizure episode. The patient's daughter has not witnessed this episode; however, she states that she was confused with body shaking her arms and her head. The daughter states that she has witnessed episodes where she starts shaking and becomes stiff and there is an associated urinary incontinence. No tongue biting or foaming and no postictal confusional state.Upon arrival, the blood pressure was elevated and the heart rate was in the mid 50s. The patient has history of stroke in 2010 with right-sided weakness and dysphasia. REVIEW OF SYSTEMS: A twelve-point review of systems was negative except as stated in the history of present illness. FAMILY HISTORY: Noncontributory PAST MEDICAL HISTORY: 1. Alzheimer's dementia. 2. History of stroke, left SALES ENABLEMENT MANAGER. 3. Hyperlipidemia. 4. Hypotension. 5. Thyroid disease. SOCIAL HISTORY: She lives in a intermediate. She is . Denies any tobacco, alcohol or illicit drug use. ALLERGIES: NO KNOWN DRUG ALLERGIES. MEDICATIONS: 1. Lactulose. 2. Lisinopril. 3. Hydrochlorothiazide. 4. Lorazepam. 5. Namenda. 6. Nifedipine. 7. Lovastatin. 8. Aspirin. 9. Aricept. 10. Plavix. 11. Synthroid. PHYSICAL EXAMINATION: GENERAL: Awake, alert, oriented to person, not place or time. She is pleasantly demented, not in acute distress. HEAD, EYES, EARS, NOSE, THROAT: Atraumatic, normocephalic. Intact hearing. Intact vision. RESPIRATORY: Clear to auscultation. No wheezes. CARDIOVASCULAR: Regular rate and rhythm. ABDOMEN: Soft, nontender. MUSCULOSKELETAL: No clubbing, no cyanosis and moves four extremities equally. NEUROLOGICAL EXAMINATION: Awake, alert, oriented to person, not to time, to place. Mild dysphasia. Abnormal reading, writing comprehension, agnosia, dysgraphia, not able to perform cerebellar, sensory and motor functions accurately due to the dysphasic symptoms and the baseline dementia. However, she moves her extremities with mild spasticity on the right upper and lower extremities. Reflexes 2+ bilateral symmetrical. Plantars right upgoing, left downgoing PSYCHIATRIC: Calm, cooperative. LABORATORY DATA: WBC 8.8, hemoglobin 11.6, platelet count 260,000. Sodium 134, potassium 3.7, BUN 11, creatinine 0.58, magnesium 2.2, AST 20, ALT 70, alkaline phosphatase 49. Vitamin B12 495. TSH 0.997. INR 0.9. Urine unremarkable. DIAGNOSTIC IMAGING: - Head CT scan w/o revealed no acute intracranial abnormality. Encephalomalacia in the left parietal lobe, likely related to old ischemia with chronic changes, generalized atrophy and periventricular white matter, low attenuation characteristic of chronic microvascular ischemia. - Carotid ultrasound - no evidence hemodynamically significant stenosis. DIAGNOSTIC IMPRESSION: Seizure disorder. Dementia Remote stroke with mild residual right sided weakness PLAN: 1. Neuro checks q. 4 hourly. 2. Aspirin 81 milligrams daily. 3. Plavix 75 milligrams daily. 4. Discontinue Aricept in light of the bradycardia. 5. EEG. 6. Keppra 500 milligrams twice daily. 7. Seizure precautions. 8. Fall precautions. 9. DVT prophylaxis. 10. Physical therapy and occupational therapy recommendations are appreciated. Thank you for the opportunity to participate in the care of your patient. MD VIANEY [place]/JONY /5:52 PM /6:31 PM MISAEL
[2017-01-09] MEDS: levETIRAcetam 500 MG TAB PO SCH (20:26)
[2017-01-09] MEDS: PRAVASTATIN SOD 10 MG TAB PO SCH (20:26)
[2017-01-09] MEDS: NIFEdipine 30 MG SUSTAINED RELEASE TAB PO SCH (20:29)
[2017-01-10 00:26] VITALS: PULSE 58
[2017-01-10 04:00] VITALS: PULSE 44
[2017-01-10 04:32] VITALS: BP 112/55; PULSE 58; RESP 18; TEMP 97.9; O2SAT 95
--- NOTE | 2017-01-10 05:12 | MG ---
cc: LATRELL PERALES MD Sex: F REFERRING PHYSICIAN: Dr. James DATE OF 1930 MEDICAL HISTORY Possible seizure episodes, dementia, Alzheimer's disease, stroke with right-sided deficits, hypercholesteremia, disease, depression. MEDICATIONS 1. Synthroid. 2. Aricept. 3. Pravachol. 4. Namenda. 5. Proventil 6. Plavix. 7. Aspirin 8. HydroDIURIL. DESCRIPTION The background activity is 8-9 Hz alpha located posteriorly bilateral and symmetrical, attenuates to eye opening. Hyperventilation was not performed. Photic stimulation did not elicit driving response. There were no electrographic seizures or epileptiform discharges noted. INTERPRETATION This is a normal awake EEG recording. Absence of electrographic seizures or epileptiform discharges does not rule out a diagnosis of seizure disorder. Clinical correlation is recommended. Latrell Perales MD [facility]/[place] /11:41 PM /4:41 AM [facility]PITALXimena
[2017-01-10] MEDS: SODIUM CHLOR 0.45% 1000 ML INJ 1,000 ML IV SCH (05:50)
[2017-01-10] MEDS: LEVOTHYROXINE SODIUM 50 MCG TAB PO SCH (05:50)
--- NOTE | 2017-01-10 07:34 | HHI.PR ---
Subjective Subjective Remarks demented, pleasant, oriented to self follows commands poor historian daughter at [facility], no seizures observed has been out of bed with assistance and ambulated to bathroom HR better, up to 50s, had one episode of tachycardia last night unable to obtain ROS Review of Systems Constitutional Constitutional Remarks 12 point ros unable to obtain Vitals/Results Intake & Output 01/09/17 01/09/17 01/10/17 15:00 23:00 07:00 Intake Total 240 ml 120 ml Balance 240 ml 120 ml Intake Oral 240 ml 120 ml # Voids 3 2 1 Vital Signs Vital Signs Date Time Temp Pulse Resp B/P Pulse Ox O2 Delivery O2 Flow Rate FiO2 01/10/17 04:32 97.9 58 18 112/55 95 01/10/17 04:00 44 01/10/17 00:26 58 01/09/17 23:48 95.9 55 20 114/58 95 01/09/17 20:00 52 01/09/17 19:42 97.3 55 20 109/49 95 01/09/17 16:15 54 01/09/17 15:44 98.9 65 16 117/58 97 01/09/17 12:26 59 01/09/17 12:00 98.5 52 14 137/63 98 01/09/17 08:13 53 01/09/17 08:00 97.5 54 16 154/69 97 CBC/BMP: 01/09/17 0430 01/09/17 0430 Physical Exam General General Appearance: Well Developed, Well Nourished, No Acute Distress, Comfortable Eyes Eye Exam: Pupils Equal, Pupils Reactive Ears & Nose Ears & Nose Exam: Nasal Mucosa [place] Throat Throat Exam: Oral Mucosa [place] & Moist Neck Neck Exam: Neck Supple, Trachea Midline Pulmonary Resp Exam: Clear Bilaterally Cardiology CV Exam: Regular, Good Perfusion, Bradycardia Gastrointestinal/Abdomen GI Exam: Soft, Non-Tender, Bowel Sounds Present, Non-Distended Musculoskeletal MS Exam: Joints Intact Integumentary Skin Exam: Warm, Dry Extremeties Extremities Exam: No Edema, Pedal Pulses Palpable Neurologic Neuro Exam: Alert, Awake, Speech Clear, Moving All Extremities, No Focal Deficits VTE Prophylaxis VTE Prophylaxis Device: SCDs Assessment/Plan Problem List: (1) Seizure (2) Syncope (3) Bradycardia (4) Dementia (5) Hypertension (6) History of CVA with residual deficit (7) Hypothyroid (8) Anxiety (9) Hyperlipidemia Assessment/Plan 86-year-old elderly female with history of periods of shaking with unresponsiveness, possible syncope, has had frequent episodes in the past with neuro workup at another facility. Possible new onset seizures-patient's daughter endorses frequent episodes at [facility], has never been on antiseizure medications. History of CVA with residual -Continue neuro checks Seizure precautions continue Ativan 0.5 mg by mouth every 8 when necessary for anxiety, seizure -appreciate Dr. Perales's input, recommends Keppra, has been started -EEG no seizures noted. Continuous cardiac telemetry -carotid ultrasound ok, no stenosis TSH, B12, RPR ok -Continue Plavix and aspirin Possible syncope, noted bradycardic, patient is not on any beta blockers Continue his cardiac telemetry appreciate card input -Aricept stopped as it can cause bradycardia 2-D echo has been ordered, pending -card cleared for dc Dementia off Aricept due to bradycardia Hypothyroid TSH ok Continue home medication Hypertension, initially elevated now improved Continue with home medications Hyperlipidemia Continue with home medications SCDs for DVT prophylaxis PT, OOB with assist CM for dc planning, plan to dc today back to facility after echo is done F/U neurology F/U cardiology if needed F/U PCP Diet-heart healthy Activity-as tolerated Discussed with patient's daughter Discussed with RN Discussed with Dr. Morris This patient was seen by myself and Dr. Morris, this note is written on her behalf Discharge Minutes: 45 Problem Qualifiers (1) Syncope: Qualified Code: R55 - Syncope, unspecified syncope type (2) Dementia: (3) Hypertension: Qualified Code: I10 - Essential hypertension (4) Hypothyroid: Qualified Code: E03.9 - Hypothyroidism, unspecified type (5) Hyperlipidemia: Qualified Code: E78.5 - Hyperlipidemia, unspecified hyperlipidemia type Miguelina Gee Jan 10, 2017 07:34 (4) Hypothyroid: Qualified Code: E03.9 - Hypothyroidism, unspecified type (5) Hyperlipidemia: Qualified Code: E78.5 - Hyperlipidemia, unspecified hyperlipidemia type Miguelina Gee Jan 10, 2017 07:34
[2017-01-10 07:39] VITALS: BP 133/60; PULSE 53; RESP 16; TEMP 97.8; O2SAT 96
[2017-01-10 07:50] VITALS: PULSE 53
[2017-01-10] MEDS ORDERED: LEVE500 PO (08:20)
--- NOTE | 2017-01-10 08:21 | HHI.DCPOC ---
Discharge Care Plan Diagnosis: (1) Seizure Your Health Problems Are: Anxiety Difficulty with ADL Goals to Promote Your Health * To prevent worsening of your condition and complications * To maintain your health at the optimal level Directions to Meet Your Goals Take your medications as prescribed Follow your dietary instruction Follow activity as directed Keep your appointments as scheduled Take your immunizations and boosters as scheduled If your symptoms worsen call your PCP, if no PCP go to Urgent Care Center or Emergency Room Smoking is Dangerous to Your Health. Avoid second hand smoke Call the 24-hour hour crisis hotline for domestic abuse at Miguelina Gee. [facility] Jan 10, 2017 08:21
--- NOTE | 2017-01-10 08:23 | HHI.DS ---
Discharge Summary Admission Date Jan 08, 2017 at 13:55 Discharge Date: Jan 10, 2017 Admitting Diagnosis syncope, possible seizure activity (1) Seizure (2) Bradycardia (3) Dementia (4) Syncope (5) Anxiety (6) Hyperlipidemia (7) Hypertension (8) Hypothyroid (9) History of CVA with residual deficit CBC/BMP: 01/09/17 0430 01/09/17 0430 Significant Findings Laboratory Tests Test 01/08/17 01/08/17 01/09/17 11:50 12:25 04:30 Red Blood Count 3.96 MIL/MM3 3.74 MIL/MM3 (4.00-5.30) (4.00-5.30) Monocytes (%) (Auto) 10.3 % 9.9 % (0.0-8.0) (0.0-8.0) Monocytes # (Auto) 1.0 TH/MM3 (0-0.9) Activated Partial 22.9 SEC Thromboplast Time (24.3-30.1) Potassium Level 3.4 MEQ/L (3.5-5.1) Estimat Glomerular Filtration 85 ML/MIN (>89) Rate Troponin I LESS THAN 0.02 NG/ML (0.02-0.05) Urine Occult Blood TRACE (NEG) Hematocrit 34.2 % (35.0-46.0) Sodium Level 134 MEQ/L (136-145) Hospital Course 86-year-old elderly female who was brought in from a local custodial with an episode of shaking, with patient becoming difficult to arouse, possibly syncopal. Patient poor historian, history of dementia. daughter at bsd, endorses hx of similar episodes in the past. Evaluated at [facility], neuro work up done, not sure on EEG. HaD never been tried on seizure meds. At one point they thought it was stress vs vascular dementia progression. Takes Ativan for anxiety and panic attacks. States she has frequent episodes where she starts shaking then becomes very tired and almost passes out. The date of admission, episode was most severe. Patient was brought into the hospital where she was evaluated. CT of the head was negative. During hospitalization was noted with bradycardia, , HR down to 39. Not on any meds, no prior hx, doesn't see roller staker. Daughter endorses, pt. demented but able to feed self, ambulates with assistance , recognizes family. Patient admitted for (1) Seizure (2) Syncope (3) Bradycardia (4) Dementia (5) Hypertension (6) History of CVA with residual deficit (7) Hypothyroid (8) Anxiety (9) Hyperlipidemia During the course of the hospitalization, the following took place 86-year-old elderly female with history of periods of shaking with unresponsiveness, possible syncope, has had frequent episodes in the past with neuro workup at another facility. Possible new onset seizures-patient's daughter endorses frequent episodes at custodial facility, has never been on antiseizure medications. History of CVA with residual -Put on neuro checks and neuro checks and seizure precautions continue Ativan 0.5 mg by mouth every 8 when necessary for anxiety, seizure -appreciated Dr. Perales's input, recommended Keppra, patient tolerated well. -EEG done, no seizures noted. Continuous cardiac telemetry -carotid ultrasound ok, no stenosis TSH, B12, RPR ok -Continued Plavix and aspirin Possible syncope, noted bradycardic, patient was not on any beta blockers Continue his cardiac telemetry Cardiology consulted, recommended to discontinue Aricept as it can cause bradycardia 2-D echo has been ordered, however daughter didn't want to wait and wanted to do it as outpatient. -card cleared for dc Dementia off Aricept due to bradycardia Hypothyroid TSH ok Continue home medication Hypertension, initially elevated now improved Continue with home medications Hyperlipidemia Continue with home medications Case management consulted for discharge planning SCDs for DVT prophylaxis PT, OOB with assist Patient had no seizure episodes, no syncope. CM for dc planning, patient discharge back to SNF. Daughter to do echo as outpatient. F/U neurology F/U cardiology if needed F/U PCP Diet-heart healthy Activity-as tolerated Pt Condition on Discharge: Stable Discharge Disposition: Discharge to SNF Discharge Instructions DIET: Follow Instructions for: Heart Healthy Diet Activities you can perform: Weight Bearing as Jovani Other Activity Instructions: FALL PRECAUTIONS SEIZURE PRECAUTIONS Follow up Referrals: Neurology - 2 Weeks with Jonn Perales MD PCP Follow-up New Medications: Levetiracetam (Keppra) 500 Mg Tab 500 MG PO Q12HR Seizure Control #60 Ref 0 TAB Continued Medications: Aspirin DR (Aspirin Adult Low Strength) 81 Mg Tabdr 81 MG PO DAILY CVA TAB Clopidogrel (Plavix) 75 Mg Tab 75 MG PO DAILY CVA #30 Ref 0 TAB Lactulose (Lactulose) 10 Gm/15 Ml Solution 30 ML PO BID Stop date: 01/09/2017 Days 3 Levothyroxine (Synthroid) 50 Mcg Tab 50 MCG PO DAILY Thyroid #30 Ref 0 TAB Lisinopril-Hctz (Lisinopril-Hctz) 20-12.5 Mg Tab 1 TAB PO DAILY Hold if SBP <100 or DBP <60 Blood Pressure Management #30 Ref 0 TAB Lovastatin (Lovastatin) 10 Mg Tab 10 MG PO HS Cholesterol Management #30 Ref 0 TAB Memantine (Namenda) 5 Mg Tab 5 MG PO BID Alzheimer Disease #60 Ref 0 TAB Nifedipine ER 24 HR (Nifedipine ER 24 HR) 30 Mg Tab 30 MG PO HS Hold if SBP <100 or DBP <60 HTN #30 Ref 0 TAB Discontinued Medications: Donepezil HCl (Aricept) 5 Mg Tablet 5 MG PO HS Lorazepam (Ativan) 0.5 Mg Tab 0.5 MG PO Q12HR PRN ANXIETY Ref 0 TAB Lorazepam (Ativan) 0.5 Mg Tab 0.5 MG PO BID Twice a day in the am & hs Anxiety Ref 0 TAB iMguelina Gee [facility] Jan 10, 2017 08:23
[2017-01-10] MEDS: DOCUSATE SODIUM 50 MG/SENNA 8.6 MG TAB PO SCH (09:00)
[2017-01-10] MEDS: HYDROCHLOROTHIAZIDE 25 MG TAB PO SCH (09:03)
[2017-01-10] MEDS: CLOPIDOGREL 75 MG TAB PO SCH (09:03)
[2017-01-10] MEDS: levETIRAcetam 500 MG TAB PO SCH (09:03)
[2017-01-10] MEDS: MEMANTINE HCL 5 MG TAB PO SCH (09:03)
[2017-01-10] MEDS: LISINOPRIL 20 MG TAB PO SCH (09:03)
[2017-01-10] MEDS: SODIUM CHLORIDE 0.9% FLUSH 10 ML FLUSH IV FLUSH SCH (09:04)
[2017-01-10] MEDS: ASPIRIN EC 81 MG TABEC PO SCH (09:04)
[2017-01-10 11:36] VITALS: BP 149/72; PULSE 67; RESP 20; TEMP 98.7; O2SAT 96
== END 2017-01-10 16:24 | disposition home or self-care (01) ==
LOC: NEPC 11:32 → NEDA 13:55 → NEPGCP 15:38
PROVIDERS: ADMIT Specialist; ATTEND Specialist
DX: G40.909 Epilepsy, unspecified, not intractable, without status epilepticus (principal); E87.6 Hypokalemia; R41.82 Altered mental status, unspecified; R55 Syncope and collapse; R00.1 Bradycardia, unspecified; R06.02 Shortness of breath; G30.9 Alzheimer's disease, unspecified; F02.80 Dementia in other diseases classified elsewhere, unspecified severity, without behavioral disturbance, psychotic disturbance, mood disturbance, and anxiety; E78.5 Hyperlipidemia, unspecified; I10 Essential (primary) hypertension; R32 Unspecified urinary incontinence; E07.9 Disorder of thyroid, unspecified; E03.9 Hypothyroidism, unspecified; E78.00 Pure hypercholesterolemia, unspecified; G93.89 Other specified disorders of brain; F32.9 Major depressive disorder, single episode, unspecified; F41.9 Anxiety disorder, unspecified; G31.9 Degenerative disease of nervous system, unspecified; E05.90 Thyrotoxicosis, unspecified without thyrotoxic crisis or storm; I70.90 Unspecified atherosclerosis; I69.351 Hemiplegia and hemiparesis following cerebral infarction affecting right dominant side; I69.321 Dysphasia following cerebral infarction; Z79.02 Long term (current) use of antithrombotics/antiplatelets; Z79.899 Other long term (current) drug therapy; Z79.82 Long term (current) use of aspirin; Z79.01 Long term (current) use of anticoagulants
CPT/HCPCS: 70450; 71010; 80048; 80053; 81001; 82550; 82607; 83735; 84443; 84484; 85025; 85610; 85730; 93005; 93880; 95819; 97162; 99285; G0378; G8987; G8988; P9612

== ENCOUNTER 2017-04-27 09:19 | Emergency (ER) | payer MEDICARE, OTHER ==
[~2017-04-27] VITALS: Ht 160 cm; Wt 50.0 kg
[~2017-04-27 09:19] MED LIST: ASPI81TA16 PO; LACT10SO5 PO; LEVE500 PO; LEVO.05 PO; LISI20TA PO; LOVA10TA PO; NAME5TAB2 PO; NIFE30TA61 PO; PLAV75TA29 PO
[2017-04-27 09:28] VITALS: BP 121/60; PULSE 74; RESP 16; TEMP 97.4; O2SAT 96
[2017-04-27] MEDS ORDERED: [UNRECOGNIZED DRUG - CODE] PO (09:42)
[2017-04-27] MEDS ORDERED: AMINLIQ7 PO (09:42)
[2017-04-27] MEDS ORDERED: SERO25TA PO (09:42)
--- NOTE | 2017-04-27 09:48 | PD ---
HPI . Fall Chief Complaint: Fall Time Seen by Provider: 09:45 Travel History International Travel<30 days: No Contact w/Intl Traveler<30days: No Traveled to known affect area: No History of Present Illness HPI This is a demented patient from a fdc who had a trip and fall this morning. They are concerned that she struck her head and she is on Plavix. She was sent to us for a CT. This patient is unable to give any history. PFSH Past Medical History Hx Anticoagulant Therapy: Yes Alzheimer's Disease: Yes Anemia: Yes Depression: Yes Cardiovascular Problems: Yes High Cholesterol: Yes Cerebrovascular Accident: Yes (rt side) Dementia: Yes Diabetes: No Genitourinary: Yes Hypertension: Yes Neurologic: Yes (CVA 2010 W/RT SIDE DEFICITS) Immunizations Current: Yes Thyroid Disease: Yes (HYPERTHYROID) Tetanus Vaccination: Unknown ?: Not Past Surgical History Surgical History: Unable to Obtain Social History Alcohol Use: No Tobacco Use: No Substance Use: No Allergies-Medications (Allergen,Severity, Reaction): Coded Allergies: No Known Allergies (Unverified Adverse Reaction, Unknown, 04/27/17) Reported Meds & Prescriptions Reported Meds & Active Scripts Active Keppra (Levetiracetam) 500 Mg Tab 500 Mg PO Q12HR Reported Seroquel (Quetiapine Fumarate) 25 Mg Tab 25 Mg PO BID Pro-Stat (Amino Acids-Protein Hydrolysat) 15 Gram-100 Kcal/30 Ml Liq 30 Ml PO BID Uti-Stat Liq (Cranberry-Vitamin C-Inulin Liq) 1 Liq 30 Ml PO 5 PM Nifedipine ER 24 HR (Nifedipine) 30 Mg Tab 30 Mg PO HS Hold if SBP <100 or DBP <60 Lovastatin 10 Mg Tab 10 Mg PO HS Lisinopril-Hctz 20-12.5 Mg Tab 1 Tab PO DAILY Hold if SBP <100 or DBP <60 Lactulose 10 Gm/15 Ml Solution 30 Ml PO BID 3 Days Stop date: 01/09/2017 Namenda (Memantine) 5 Mg Tab 5 Mg PO BID Synthroid (Levothyroxine Sodium) 50 Mcg Tab 50 Mcg PO DAILY Aspirin Adult Low Strength (Aspirin) 81 Mg Tabdr 81 Mg PO DAILY Plavix (Clopidogrel Bisulfate) 75 Mg Tab 75 Mg PO DAILY Review of Systems ROS Limitations: Poor Historian Physical Exam Narrative GENERAL: The patient is awake and alert. She is able to tell me her name. SKIN: Warm and dry. Intact. HEAD: Normocephalic/atraumatic. EYES: Pupils are equal. Extraocular movements are intact. NECK: Neck has full range of motion. No apparent pain. RESPIRATORY: Nonlabored respirations. MUSCULOSKELETAL: She allows movement of all major joints without any apparent pain. There are no obvious deformities. No bruising or swelling. NEUROLOGICAL: Awake and alert. No cranial nerve deficits. Moving all 4 extremities equally. Demented. PSYCHIATRIC: Unable to assess. Data Data Last Documented VS Vital Signs Date Time Temp Pulse Resp B/P (MAP) Pulse Ox O2 Delivery O2 Flow Rate FiO2 04/27/17 09:28 97.4 74 16 121/60 (80) [address] Brain W/O Iv Contrast(Rout) (04/27/17 09:45) [facility] Medical Decision Making Medical Screen Exam Complete: Yes Emergency Medical Condition: Yes Differential Diagnosis My differential diagnosis of head trauma includes but is not limited to scalp contusion, concussion, intracerebral hemorrhage. Narrative Course This patient presents for evaluation of possible head injury. CT: 1. Stable noncontrast head CT. No acute intracranial abnormality is identified. 2. Stable chronic findings include encephalomalacia in the left parietal lobe and generalized cerebral atrophy with chronic white matter changes. Diagnosis Primary Impression: Fall Qualified Codes: W19.XXXA - Unspecified fall, initial encounter Patient Instructions: Fall Prevention for Older Adults (DC), General Instructions Disposition: 01 DISCHARGE HOME Condition: Stable Lory Mcleod MD Apr 27, 2017 09:48
--- NOTE | 2017-04-27 10:24 | RADRPT ---
EXAM DATE/TIME: 04/27/2017 09:58 [facility] COMPARISON: CT BRAIN W/O CONTRAST, January 08, 2017, 12:39. INDICATIONS : Patient fell, change in mental status RADIATION DOSE: 56.35 CTDIvol (mGy) MEDICAL HISTORY : Dementia. Cerebrovascular disease. Cardiovascular disease SURGICAL HISTORY : None. ENCOUNTER: Initial ACUITY: 1 day PAIN SCALE: Non-responsive LOCATION: Bilateral cranial TECHNIQUE: Multiple contiguous axial images were obtained of the head. Using automated exposure control and adj ustment of the mA and/or kV according to patient size, radiation dose was kept as low as reasonably a chievable to obtain optimal diagnostic quality images. DICOM format image data is available electro nically for review and comparison. FINDINGS: CEREBRUM: There is moderate generalized cerebral atrophy. Ventricles are prominent but within normal limits giv en the degree of atrophy present. There is expected dilatation of the left lateral ventricle posterio rly related to encephalomalacia in the left parietal lobe. There is moderate to severe stable periven tricular white matter low attenuation. No evidence of midline shift, mass lesion, hemorrhage or acut e infarction. No extra-axial fluid collections are seen. POSTERIOR FOSSA: The cerebellum and brainstem demonstrate no acute finding. The 4th ventricle is midline. The cerebe llopontine angle is unremarkable. EXTRACRANIAL: Visu sinuses are clear. SKULL: The calvaria is intact. No evidence of skull fracture. CONCLUSION: 1. Stable noncontrast head CT. No acute intracranial abnormality is identified. 2. Stable chronic findings include encephalomalacia in the left parietal lobe and generalized cerebra l atrophy with chronic white matter changes. Oscar Rich MD on April 27, 2017 at 10:17 Board Certified Radiologist. This report was verified electronically.
== END 2017-04-27 11:14 | disposition home or self-care (01) ==
LOC: NEPE 09:19
DX: S09.90XA Unspecified injury of head, initial encounter (principal); G30.9 Alzheimer's disease, unspecified; F02.80 Dementia in other diseases classified elsewhere, unspecified severity, without behavioral disturbance, psychotic disturbance, mood disturbance, and anxiety; D64.9 Anemia, unspecified; I10 Essential (primary) hypertension; E05.90 Thyrotoxicosis, unspecified without thyrotoxic crisis or storm; I69.951 Hemiplegia and hemiparesis following unspecified cerebrovascular disease affecting right dominant side; F32.9 Major depressive disorder, single episode, unspecified; W01.0XXA Fall on same level from slipping, tripping and stumbling without subsequent striking against object, initial encounter
CPT/HCPCS: 70450

== ENCOUNTER 2017-06-18 11:11 | Emergency (ER) | payer MEDICARE, OTHER ==
[~2017-06-18] VITALS: Ht 152.4 cm; Wt 46.0 kg
[~2017-06-18 11:11] MED LIST changes: +AMINLIQ7 PO; +SERO25TA PO; +[UNRECOGNIZED DRUG - CODE] PO
[2017-06-18] MEDS ORDERED: IOHEXOL 350 MG/ML 10 ML VIAL (for RAD DIAG) IVCONTRAST ONE (11:12)
[2017-06-18 11:18] VITALS: BP 136/61; PULSE 74; RESP 16; TEMP 97.8; O2SAT 98
[2017-06-18] MEDS ORDERED: SODIUM CHLORIDE 0.9% FLUSH 10 ML FLUSH IV FLUSH PRN (11:45)
[2017-06-18 11:56] VITALS: RESP 16; O2SAT 99
[2017-06-18] MEDS ORDERED: NAME10TA PO (12:12)
[2017-06-18 12:21] LABS: AUTOMATED NEUTROPHIL # 7.1 TH/MM3 (1.8-7.7); BASOPHIL % 0.4 % (0.0-2.0); EOSINOPHIL # 0.1 TH/MM3 (0-0.4); EOSINOPHIL % 0.6 % (0.0-4.0); HEMATOCRIT 31.5 % (35.0-46.0); HEMOGLOBIN 10.3 GM/DL (11.6-15.3); LYMPH % 20.9 % (9.0-44.0); LYMPHOCYTE # 2.2 TH/MM3 (1.0-4.8); MEAN CELL VOLUME 93.5 FL (80.0-100.0); MEAN CORPUSCULAR HEMOGLOBIN 30.5 PG (27.0-34.0); MEAN CORPUSCULAR HGB CONC 32.6 % (32.0-36.0); MEAN PLATELET VOLUME 9.4 FL (7.0-11.0); MONO % 9.5 % (0.0-8.0); NEUT % 68.6 % (16.0-70.0); PLATELET COUNT 289 TH/MM3 (150-450); RED BLOOD COUNT 3.37 MIL/MM3 (4.00-5.30); RED CELL DISTRIBUTION WIDTH 14.1 % (11.6-17.2); WHITE BLOOD COUNT 10.4 TH/MM3 (4.0-11.0)
--- NOTE | 2017-06-18 12:29 | PD ---
HPI Chief Complaint: Abdominal Pain Time Seen by Provider: 11:24 Travel History International Travel<30 days: No Contact w/Intl Traveler<30days: No Traveled to known affect area: No History of Present Illness HPI 87-year-old female that presents to the ED for evaluation of abdominal pain. Per Dr. Gutierres was most of the information patient has been having abdominal pain on and off for the past 2 weeks. Comes and goes. Movement makes it worse. Per daughter that been doing a lot of testing at the nursing facility were she's been. They checked her heart as well as an ultrasound and x-rays to make sure patient doesn't have any fractures. This all has been negative. Pain is not consistent and comes and goes. Pain happened today before coming to the ED which is what prompted evaluation. Per family M.D. at the facility wanted patient to have a CT which is what she was sent here for. She does take Plavix. Denies any falls. She didn't having bowel movements that have been normal. No blood in the stool per family and facility. Patient currently has no complaints and has no pain. Patient has significant history of dementia, old stroke, taking chronic anxiety medications and unfortunately is not a good historian secondary to her significant dementia. Most of the history is obtained from family member. Patient herself is happily confused. Patient cannot give me a number for her pain but per family member appears to be severe to the point where she stops doing everything and only last for a couple of minutes. PFSH Past Medical History Hx Anticoagulant Therapy: Yes (PLAVIX/ ASA) Alzheimer's Disease: Yes Anemia: Yes Depression: Yes Cardiovascular Problems: Yes High Cholesterol: Yes Cerebrovascular Accident: Yes (rt side) Dementia: Yes Diabetes: No Diminished Hearing: No Genitourinary: Yes Hypertension: Yes Neurologic: Yes (CVA 2011 W/RT SIDE DEFICITS) Immunizations Current: Yes Thyroid Disease: Yes (HYPERTHYROID) Tetanus Vaccination: < 5 Years Influenza Vaccination: Yes ?: Not Menopausal: Yes : 3 Para: 3 Past Surgical History Surgical History: No Previous Surgery Social History Alcohol Use: No Tobacco Use: No Substance Use: No Allergies-Medications (Allergen,Severity, Reaction): Coded Allergies: No Known Allergies (Verified Adverse Reaction, Unknown, 06/18/17) Reported Meds & Prescriptions Reported Meds & Active Scripts Active Azithromycin 250 Mg Tab 250 Mg PO DIRECTED Take 2 tabs (500 mg) on day 1 then 1 tab daily x 4 days. Keppra (Levetiracetam) 500 Mg Tab 500 Mg PO Q12HR Reported Namenda (Memantine) 10 Mg Tab 10 Mg PO BID Seroquel (Quetiapine Fumarate) 25 Mg Tab 25 Mg PO BID Pro-Stat (Amino Acids-Protein Hydrolysat) 15 Gram-100 Kcal/30 Ml Liq 30 Ml PO BID Uti-Stat Liq (Cranberry-Vitamin C-Inulin Liq) 1 Liq 30 Ml PO 5 PM Nifedipine ER 24 HR (Nifedipine) 30 Mg Tab 30 Mg PO HS Hold if SBP <100 or DBP <60 Lovastatin 10 Mg Tab 10 Mg PO HS Lisinopril-Hctz 20-12.5 Mg Tab 1 Tab PO DAILY Hold if SBP <100 or DBP <60 Lactulose 10 Gm/15 Ml Solution 30 Ml PO BID 3 Days Stop date: 01/09/2017 Namenda (Memantine) 5 Mg Tab 5 Mg PO BID Synthroid (Levothyroxine Sodium) 50 Mcg Tab 50 Mcg PO DAILY Aspirin Adult Low Strength (Aspirin) 81 Mg Tabdr 81 Mg PO DAILY Plavix (Clopidogrel Bisulfate) 75 Mg Tab 75 Mg PO DAILY Review of Systems ROS Limitations: Poor Historian Except as stated in HPI: all other systems reviewed are Neg Physical Exam Exam Limitations: Poor Historian Narrative GENERAL: SKIN: Warm and dry. HEAD: Atraumatic. Normocephalic. EYES: Pupils equal and round. No scleral icterus. No injection or drainage. ENT: No nasal bleeding or discharge. Mucous membranes pink and moist. Tongue is midline. No uvula deviation. NECK: Trachea midline. No JVD. CARDIOVASCULAR: Regular rate and rhythm. No murmurs, S3, S4. RESPIRATORY: No accessory muscle use. Clear to auscultation. Breath sounds equal bilaterally. GASTROINTESTINAL: Abdomen soft, non-tender, nondistended. Hepatic and splenic margins not palpable. MUSCULOSKELETAL: Extremities without clubbing, cyanosis, or edema. No obvious deformities. Full range of motion of the upper and lower extremities bilaterally. 2+ pulses bilaterally. NEUROLOGICAL: Awake and alert. No obvious cranial nerve deficits. Motor grossly within normal limits. Five out of 5 muscle strength in the arms and legs. Normal speech. PSYCHIATRIC: Appropriate mood and affect; insight and judgment normal. Data Data Last Documented VS Vital Signs Date Time Temp Pulse Resp B/P (MAP) Pulse Ox O2 Delivery O2 Flow Rate FiO2 06/18/17 13:52 97.8 76 16 141/70 (93) 99 Room Air Orders Orders Complete Blood Count With Diff (06/18/17 11:35) Comprehensive Metabolic Panel (06/18/17 11:35) Lipase (06/18/17 11:35) Lactic Acid (06/18/17 11:35) Urinalysis - C+S If Indicated (06/18/17 11:35) Iv Access Insert/Monitor (06/18/17 11:35) Ecg Monitoring (06/18/17 11:35) Oximetry (06/18/17 11:35) Sodium Chloride 0.9% Flush (Ns Flush) (06/18/17 11:45) Ammonia (06/18/17 11:55) Ct Abd/Pel W Iv Contrast(Rout) (06/18/17 ) Iohexol 350 Inj (Omnipaque 350 Inj) (06/18/17 11:12) Ceftriaxone Inj (Rocephin Inj) (06/18/17 15:15) Azithromycin Inj (Zithromax Inj) (06/18/17 15:15) Ed Discharge Order (06/18/17 15:09) Labs Laboratory Tests Test 06/18/17 11:50 White Blood Count 10.4 TH/MM3 Red Blood Count 3.37 MIL/MM3 Hemoglobin 10.3 GM/DL Hematocrit 31.5 % Mean Corpuscular Volume 93.5 FL Mean Corpuscular Hemoglobin 30.5 PG Mean Corpuscular Hemoglobin Concent 32.6 % Red Cell Distribution Width 14.1 % Platelet Count 289 TH/MM3 Mean Platelet Volume 9.4 FL Neutrophils (%) (Auto) 68.6 % Lymphocytes (%) (Auto) 20.9 % Monocytes (%) (Auto) 9.5 % Eosinophils (%) (Auto) 0.6 % Basophils (%) (Auto) 0.4 % Neutrophils # (Auto) 7.1 TH/MM3 Lymphocytes # (Auto) 2.2 TH/MM3 Monocytes # (Auto) 1.0 TH/MM3 Eosinophils # (Auto) 0.1 TH/MM3 Basophils # (Auto) 0.0 TH/MM3 CBC Comment DIFF FINAL Differential Comment Urine Color YELLOW Urine Turbidity CLEAR Urine pH 5.5 Urine Specific [place] 1.026 Urine Protein NEG mg/dL Urine Glucose (UA) NEG mg/dL Urine Ketones NEG mg/dL Urine Occult Blood NEG Urine Nitrite NEG Urine Bilirubin NEG Urine Urobilinogen LESS THAN 2.0 MG/DL Urine Leukocyte Esterase NEG Urine RBC 2 /hpf Urine WBC 1 /hpf Urine Mucus FEW /lpf Microscopic Urinalysis Comment CULT NOT INDICATED Blood Urea Nitrogen 32 MG/DL Creatinine 0.60 MG/DL Random Glucose 74 MG/DL Total Protein 6.6 GM/DL Albumin 3.1 GM/DL Calcium Level 9.2 MG/DL Alkaline Phosphatase 86 U/L Aspartate Amino Transf (AST/SGOT) 28 U/L Alanine Aminotransferase (ALT/SGPT) 14 U/L Total Bilirubin 0.4 MG/DL Sodium Level 147 MEQ/L Potassium Level 3.8 MEQ/L Chloride Level 112 MEQ/L Carbon Dioxide Level 29.0 MEQ/L Anion Gap 6 MEQ/L Estimat Glomerular Filtration Rate 95 ML/MIN Lactic Acid Level 1.5 mmol/L Ammonia 19 MCMOL/L Lipase 239 U/L MDM Medical Decision Making Medical Screen Exam Complete: Yes Emergency Medical Condition: Yes Medical Record Reviewed: Yes Interpretation(s) CBC & BMP Diagram 06/18/17 11:50 Total Protein 6.6, Albumin 3.1 L, Calcium Level 9.2, Alkaline Phosphatase 86, Aspartate Amino Transf (AST/SGOT) 28, Alanine Aminotransferase (ALT/SGPT) 14, Total Bilirubin 0.4 lactic acid WNL Last Impressions Abdomen/Pelvis CT 06/18/17 0000 Signed Impressions: Service Date/Time: Sunday, June 18, 2017 14:36 - CONCLUSION: 1. Tiny bilateral pleural effusions and small left lower lung infiltrate. 2. No acute findings in the abdomen/pelvis. Ritchie Jensen MD ammonia WNL UA WNL Differential Diagnosis Abdominal pain versus pancreatitis versus gastroenteritis versus heartburn versus normal exam versus muscle scale pain Narrative Course 87-year-old female that presents to the ED for evaluation of abdominal pain. Patient was properly examined and was found to have signs and symptoms of unclear etiology at this time. Patient has had multiple workups for family and patient at the facility to have been negative. Patient has dementia so her history is limited. She herself cannot really tell me anything. She was sent here for imaging or evaluation. At this time I recommend CT as patient is not a good historian. Labs were ordered. Family and patient agree with proceeding. Labs and imaging showed possible left lower lobe pneumonia. Likely the source of the pain as per daughter patient was seems to point to the left lower chest as the area of discomfort. This time this is likely the source of the discomfort. At this time would recommend trial of antibiotics. Patient was given IV dose of antibiotics here. Patient lives at an [facility]. Patient and family was told that if anything worsens she is to come back to the ED. Patient and family agree with this. Patient was given prescription for augmentin to cover for possible aspiration pneumonia (daughter noted that patient did had a chocking episode before symptoms started). Case was discussed in my attending Dr. Dc agrees with discharge and follow-up outpatient or see ED for worsening symptoms. Family and patient agree with this. OTC meds as needed. See ED for worsening symptoms. Diagnosis Primary Impression: Pneumonia Qualified Codes: J18.1 - Lobar pneumonia, unspecified organism Patient Instructions: General Instructions Additional Instructions: Motrin and Tylenol for pain and fever. You can use [id number] antihistamine as well as well as Mucinex as needed for runny nose and congestion. Cough drops for cough as needed. Drink plenty of fluids. Follow-up with PCP. See ED for worsening symptoms. Med/Other Pt SpecificInfo: Prescription(s) given Scripts Azithromycin (Azithromycin) 250 Mg Tab 250 MG PO DIRECTED for Infection, #6 TAB 0 Refills Take 2 tabs (500 mg) on day 1 then 1 tab daily x 4 days. Prov: Geoff Dc MD 06/18/17 Disposition: 01 DISCHARGE HOME Condition: Stable Emir Rai Jun 18, 2017 12:29
[2017-06-18 12:33] LABS: BILIRUBIN, URINE NEG (NEG); BLOOD, URINE NEG (NEG); GLUCOSE,URINE NEG (NEG); KETONE, URINE NEG (NEG); MUCUS URINE FEW /lpf (OCC); NITRITE,URINE NEG (NEG); PH, URINE 5.5 (5.0-8.5); URINE COLOR YELLOW (YELLW/STRAW); URINE LEUKOCYTE ESTERASE NEG (NEG)
[2017-06-18 12:42] LABS: ALBUMIN 3.1 GM/DL (3.4-5.0); ALKALINE PHOSPHATASE 86 U/L (45-117); ALT (GPT) 14 U/L (10-53); AST (GOT) 28 U/L (15-37); BLOOD UREA NITROGEN 32 MG/DL (7-18); CALCIUM 9.2 MG/DL (8.5-10.1); CHLORIDE 112 MEQ/L (98-107); GLOMERULAR FILTRATION RATE 95 ML/MIN (>89); GLUCOSE,RANDOM 74 MG/DL (74-106); LIPASE 239 U/L (73-393); SODIUM (NA) 147 MEQ/L (136-145); TOTAL BILIRUBIN ADULT 0.4 MG/DL (0.2-1.0); TOTAL PROTEIN 6.6 GM/DL (6.4-8.2)
[2017-06-18 13:52] VITALS: BP 141/70; PULSE 76; RESP 16; TEMP 97.8; O2SAT 99
--- NOTE | 2017-06-18 14:53 | RADRPT ---
EXAM DATE/TIME: 06/18/2017 14:36 [facility] COMPARISON: No previous studies available for comparison. INDICATIONS : Patient complains of abdominal pain. IV CONTRAST: 95 cc Omnipaque 350 (iohexol) IV ORAL CONTRAST: No oral contrast ingested. RADIATION DOSE: 5.45 CTDIvol (mGy) MEDICAL HISTORY : Cardiovascular disease. Hypertension. Cerebrovascular disease. SURGICAL HISTORY : None. ENCOUNTER: Initial ACUITY: 2 weeks PAIN SCALE: 5/10 LOCATION: abdomen TECHNIQUE: Volumetric scanning of the abdomen and pelvis was performed. Using automated exposure control and ad justment of the mA and/or kV according to patient size, radiation dose was kept as low as reasonably achievable to obtain optimal diagnostic quality images. DICOM format image data is available electro nically for review and comparison. FINDINGS: LOWER LUNGS: Subsegmental infiltrate in the lower lateral left lung. Tiny bilateral pleural effusions. LIVER: Homogeneous density without lesion. There is no dilation of the biliary tree. No calcified gallston es. SPLEEN: Normal size without lesion. PANCREAS: Within normal limits. KIDNEYS: Normal in size and shape. There is no mass, stone or hydronephrosis. ADRENAL GLANDS: Within normal limits. VASCULAR: There is no aortic aneurysm. BOWEL/MESENTERY: No dilated loops of small or large bowel. No evidence of free fluid. ABDOMINAL WALL: Within normal limits. RETROPERITONEUM: There is no lymphadenopathy. BLADDER: No wall thickening or mass. REPRODUCTIVE: Within normal limits. INGUINAL: There is no lymphadenopathy or hernia. MUSCULOSKELETAL: Within normal limits for patient age. CONCLUSION: 1. Tiny bilateral pleural effusions and small left lower lung infiltrate. 2. No acute findings in the abdomen/pelvis. Ritchie Jensen MD on June 18, 2017 at 14:49 Board Certified Radiologist. This report was verified electronically.
[2017-06-18] MEDS ORDERED: AZIT250T3 PO (15:06)
[2017-06-18] MEDS ORDERED: AZITHROMYCIN INJ 500 MG in SODIUM CHLOR 0.9% 250 ML INJ 250 ML IV ONE (15:15)
[2017-06-18] MEDS ORDERED: cefTRIAXone INJ 1,000 MG in SODIUM CHLORIDE 0.9% INJ 100 ML IV ONE (15:15)
[2017-06-18] MEDS ORDERED: AUGM875T3 PO (15:17)
[2017-06-18 16:12] VITALS: BP 122/81; TEMP 97.8
== END 2017-06-18 16:14 | disposition home or self-care (01) ==
LOC: NEPE 11:11
DX: J18.9 Pneumonia, unspecified organism (principal); G30.9 Alzheimer's disease, unspecified; F02.80 Dementia in other diseases classified elsewhere, unspecified severity, without behavioral disturbance, psychotic disturbance, mood disturbance, and anxiety; D64.9 Anemia, unspecified; E78.00 Pure hypercholesterolemia, unspecified; I10 Essential (primary) hypertension; I69.951 Hemiplegia and hemiparesis following unspecified cerebrovascular disease affecting right dominant side; E05.90 Thyrotoxicosis, unspecified without thyrotoxic crisis or storm; F32.9 Major depressive disorder, single episode, unspecified
CPT/HCPCS: 74177; 80053; 81001; 82140; 83605; 83690; 85025; 96365; 99285; J0696; Q9967

== ENCOUNTER 2017-08-13 15:46 | Emergency (ER) | payer MEDICARE, OTHER ==
[~2017-08-13] VITALS: Ht 154.9 cm; Wt 49.0 kg
[~2017-08-13 15:46] MED LIST changes: +AUGM875T3 PO; +NAME10TA PO
[2017-08-13 16:00] VITALS: BP 147/66; PULSE 71; RESP 16; TEMP 98.2; O2SAT 99
--- NOTE | 2017-08-13 16:52 | RADRPT ---
EXAM DATE/TIME: 08/13/2017 16:34 [facility] COMPARISON: No previous studies available for comparison. INDICATIONS : Patient complains of pain and swelling around 3rd-5th MCPJs. No known injury. MEDICAL HISTORY : None. SURGICAL HISTORY : None. ENCOUNTER: Initial ACUITY: 1 day PAIN SCORE: 5/10 LOCATION: Right Hand FINDINGS: The bony elements appear intact without evidence of fracture, dislocation or bony destruction. There is soft tissue swelling overlying the knuckles. CONCLUSION: No acute bony findings Oscar Reeder MD on August 13, 2017 at 16:49 Board Certified Radiologist. This report was verified electronically.
--- NOTE | 2017-08-13 17:59 | PD ---
HPI Chief Complaint: Edema Time Seen by Provider: 17:58 Travel History International Travel<30 days: No Contact w/Intl Traveler<30days: No Traveled to known affect area: No History of Present Illness HPI 87-year-old female presents to the emergency department accompanied by her daughter with complaint of right hand swelling with worsening 1 month. The patient is from [facility] and rehab and has dementia. The daughter visits her mother every 4 days and has been keeping an eye on the right hand and noted that it has been more swollen today. The right fourth finger ring was removed in triage. Unknown injury. The daughter states that she does complain about pain to the hand at the MCP joint area. There is no redness. Daughter is concerned because the swelling is going up her arm. Denies fever, vomiting. They have started physical therapy at the rehab center. They are doing rubbing , lotion, and ice. They have not given her any medications to alleviate her symptoms. The primary care provider at the rehab center saw her today and told the daughter it was most likely related to arthritic changes. No known relieving or aggravating factors. The patient is on Plavix. She has history of dementia, stroke, hypertension. Primary care provider is Dr. Robles. No known allergies. Has no other medical complaints. No other modifying factors or associated signs and symptoms. PFSH Past Medical History Hx Anticoagulant Therapy: Yes Alzheimer's Disease: Yes Anemia: Yes Depression: Yes Cardiovascular Problems: Yes High Cholesterol: Yes Cerebrovascular Accident: Yes (2010; Rt sided defecit) Dementia: Yes Diabetes: No Diminished Hearing: No Genitourinary: Yes Hypertension: Yes Neurologic: Yes (CVA 2010 W/RT SIDE DEFICITS) Immunizations Current: Yes Seizures: Yes Thyroid Disease: Yes (HYPERTHYROID) Tetanus Vaccination: Unknown ?: Not Menopausal: Yes : 3 Para: 3 Past Surgical History Surgical History: No Previous Surgery Social History Alcohol Use: No Tobacco Use: No Substance Use: No Allergies-Medications (Allergen,Severity, Reaction): Coded Allergies: No Known Allergies (Verified Adverse Reaction, Unknown, 08/13/17) Reported Meds & Prescriptions Reported Meds & Active Scripts Active Augmentin (Amoxicillin-Clavulanate) 875-125 Mg Tab 1 Tab PO BID 10 Days Keppra (Levetiracetam) 500 Mg Tab 500 Mg PO Q12HR Reported Namenda (Memantine) 10 Mg Tab 10 Mg PO BID Seroquel (Quetiapine Fumarate) 25 Mg Tab 25 Mg PO BID Pro-Stat (Amino Acids-Protein Hydrolysat) 15 Gram-100 Kcal/30 Ml Liq 30 Ml PO BID Uti-Stat Liq (Cranberry-Vitamin C-Inulin Liq) 1 Liq 30 Ml PO 5 PM Nifedipine ER 24 HR (Nifedipine) 30 Mg Tab 30 Mg PO HS Hold if SBP <100 or DBP <60 Lovastatin 10 Mg Tab 10 Mg PO HS Lisinopril-Hctz 20-12.5 Mg Tab 1 Tab PO DAILY Hold if SBP <100 or DBP <60 Lactulose 10 Gm/15 Ml Solution 30 Ml PO BID 3 Days Stop date: 01/09/2017 Namenda (Memantine) 5 Mg Tab 5 Mg PO BID Synthroid (Levothyroxine Sodium) 50 Mcg Tab 50 Mcg PO DAILY Aspirin Adult Low Strength (Aspirin) 81 Mg Tabdr 81 Mg PO DAILY Plavix (Clopidogrel Bisulfate) 75 Mg Tab 75 Mg PO DAILY Review of Systems Except as stated in HPI: all other systems reviewed are Neg Physical Exam Narrative GENERAL: Well-nourished, well-developed elderly, female patient, in no acute distress SKIN: Warm and dry. HEAD: Atraumatic. Normocephalic. EYES: Pupils equal and round. No scleral icterus. No injection or drainage. ENT: Mucosa pink and moist. Airway patent. NECK: Trachea midline. CARDIOVASCULAR: Regular rate. RESPIRATORY: No accessory muscle use. GASTROINTESTINAL: Flat. MUSCULOSKELETAL: Right hand and forearm with swelling; there is no erythema or warmth noted; the fingers are pink and warm and with good cap refill; the patient is moving the hand freely. Right upper extremity is supple nontender with 2+ radial pulse. No obvious deformities. No clubbing. No cyanosis. No edema. NEUROLOGICAL: Awake and alert. No obvious cranial nerve deficits. Motor grossly within normal limits. Normal speech. PSYCHIATRIC: Appropriate mood and affect; insight and judgment normal. Data Data Last Documented VS Vital Signs Date Time Temp Pulse Resp B/P (MAP) Pulse Ox O2 Delivery O2 Flow Rate FiO2 08/13/17 20:43 08/13/17 16:00 98.2 71 16 99 Room Air Orders Orders Hand, Complete ([id number]) (08/13/17 ) Us Arm Venous Doppler (08/13/17 ) Acetaminophen (Tylenol) (08/13/17 18:15) Ed Discharge Order (08/13/17 19:47) MDM Medical Decision Making Medical Screen Exam Complete: Yes Emergency Medical Condition: Yes Medical Record Reviewed: Yes Differential Diagnosis Nonspecific edema, fracture, arthritis, DVT Narrative Course 87-year-old female with history of dementia, presents with her daughter with concern of right hand and forearm swelling with worsening over the past month. Unknown injury. Patient is on Plavix. She has history of stroke, dementia, hypertension. Right hand x-ray ordered in triage. 1759: Right hand x-ray concluded: Hand X-Ray 08/13/17 0000 Signed Impressions: Service Date/Time: Sunday, August 13, 2017 16:34 - CONCLUSION: No acute bony findings Oscar Reeder MD On my examination the daughter is concerned and is requesting an ultrasound of the right arm to rule out blood clot. I will order an ultrasound per patient's request. Right arm venous Doppler ultrasound ordered. Tylenol ordered. 1899: Report given to Jameson lowry PA-C at change of shift. Right arm venous Doppler ultrasound pending. See his note for final patient disposition. Kristina Rodney Aug 13, 2017 17:59
[2017-08-13] MEDS ORDERED: ACETAMINOPHEN 325 MG TAB PO ONE (18:15)
--- NOTE | 2017-08-13 19:09 | RADRPT ---
EXAM DATE/TIME: 08/13/2017 18:40 [facility] COMPARISON: No previous studies available for comparison. INDICATIONS : Right arm swelling. MEDICAL HISTORY : Hyperthyroidism. . Dementia. Cerebrovascular accident. Alzheimer's disease. seizures. antico agulant therapy. hypercholesterolemia. depression. anemia. SURGICAL HISTORY : None. ENCOUNTER: Initial ACUITY: 1 month PAIN SCORE: 0/10 LOCATION: Right arm. FINDINGS: There is spontaneous flow documented in the brachial, basilic, cephalic, axillary, and subclavian vei ns. The vessels are compressible and augmentation response is documented. No filling defects are se en. The flow is phasic with respiration. Direction of flow in the jugular vein is caudal. CONCLUSION: 1. No sonographic evidence for right upper extremity DVT. Gilberto Blackman MD on August 13, 2017 at 19:08 Board Certified Radiologist. This report was verified electronically.
--- NOTE | 2017-08-13 19:52 | PD ---
Physical Exam Date Seen by Provider: Aug 13, 2017 Time Seen by Provider: 19:48 Narrative GENERAL: This is a well-nourished, well-developed patient, in no apparent distress. SKIN: No rashes, ecchymoses or lesions. Warm and dry. HEAD: Atraumatic. Normocephalic. EYES: PERRL, EOMI, no discharge or injection. No scleral icterus. EARS: Clear NOSE: Nasal turbinates appear normal. THROAT: Mucosa pink and moist. Airway patent. NECK: Trachea midline. supple, moves head freely. LUNGS: Clear to auscultation. CV: Regular in rhythm. ABDOMEN: Soft nontender. EXT: No clubbing cyanosis +1 pedal patient has a contracture deformity of the right upper extremity. She has mild to moderate edema in the hand edema. She has limited range of motion. There is no swelling or pain in the wrist, forearm , upper arm. She has intact gross sensation. Good pulses. Data Data Last Documented VS Vital Signs Date Time Temp Pulse Resp B/P (MAP) Pulse Ox O2 Delivery O2 Flow Rate FiO2 08/13/17 16:00 98.2 71 16 147/66 (93) 99 Room Air Orders Orders Hand, Complete ([id number]) (08/13/17 ) Us Arm Venous Doppler (08/13/17 ) Acetaminophen (Tylenol) (08/13/17 18:15) Ed Discharge Order (08/13/17 19:47) [facility] Medical Record Reviewed: Yes Supervised Visit with ARLENE: Yes Interpretation(s) Last 24 hours Impressions Upper Extremity Ultrasound 08/13/17 0000 Signed Impressions: Service Date/Time: Sunday, August 13, 2017 18:40 - CONCLUSION: 1. No sonographic evidence for right upper extremity DVT. Gilberto Blackman MD Hand X-Ray 08/13/17 0000 Signed Impressions: Service Date/Time: Sunday, August 13, 2017 16:34 - CONCLUSION: No acute bony findings Oscar Reeder MD Differential Diagnosis . Narrative Course Ultrasound of right upper extremity is negative for acute trauma. I discussed the case with the family who are at bedside. I suspect her edema is from her prior stroke and her inability to perform range of motion with her hand. Over the past month or so she has had decreased mobility and has had worsening recurrent weakness on the right side. She has had a prior history of a stroke and the patient is now decompensating and has decreased mobility. I suspect her edema is more dependent and not from arthritis or acute vascular process. This is right hand edema Diagnosis Primary Impression: Right hand edema Patient Instructions: General Instructions Additional Instruction: Rest. Elevation. Consider additional medication for aggression to assess with physical therapy. Patient should have more aggressive physical therapy involving the right upper extremity as well as lower extremities. Recheck with your physician at the correction in the next 1-2 days. Follow up with your neurologist in 1 week. Med/Other Pt SpecificInfo: No Meds Exist/No RX given Disposition: DISCHARGE HOME Condition: Stable Jameson Jacobson Aug 13, 2017 19:52
== END 2017-08-13 20:44 | disposition home or self-care (01) ==
LOC: NEPD 15:46
DX: R60.1 Generalized edema (principal); F03.90 Unspecified dementia, unspecified severity, without behavioral disturbance, psychotic disturbance, mood disturbance, and anxiety; I10 Essential (primary) hypertension; G30.9 Alzheimer's disease, unspecified; F02.80 Dementia in other diseases classified elsewhere, unspecified severity, without behavioral disturbance, psychotic disturbance, mood disturbance, and anxiety; D64.9 Anemia, unspecified; F32.9 Major depressive disorder, single episode, unspecified; E78.00 Pure hypercholesterolemia, unspecified; Z86.73 Personal history of transient ischemic attack (TIA), and cerebral infarction without residual deficits
CPT/HCPCS: 73130; 93971; 99283

== ENCOUNTER 2017-08-17 13:30 | Emergency (ER) | payer MEDICARE, OTHER ==
[2017-08-17 13:39] VITALS: BP 185/105; PULSE 78; RESP 18; TEMP 98.7; O2SAT 99
[2017-08-17] MEDS ORDERED: TETANUS/DIPHTHERIA TOXOID ADULT 0.5 ML VIAL IM ONE (14:00)
[2017-08-17 14:01] VITALS: BP 171/79; PULSE 77; RESP 18; O2SAT 96
[2017-08-17] MEDS ORDERED: OMEP20TA93 PO (14:06)
[2017-08-17] MEDS ORDERED: LORA0.5T PO (14:06)
[2017-08-17] MEDS ORDERED: APLI5INJ2 (14:06)
[2017-08-17] MEDS ORDERED: AZO-450T (14:17)
[2017-08-17] MEDS ORDERED: LEVE500 (14:17)
[2017-08-17] MEDS ORDERED: IBUP200T47 PO (14:17)
[2017-08-17] MEDS ORDERED: [UNRECOGNIZED DRUG - CODE] PO (14:17)
[2017-08-17] MEDS ORDERED: [UNRECOGNIZED DRUG - CODE] (14:17)
[2017-08-17] MEDS ORDERED: NORC5TAB PO (14:17)
[2017-08-17] MEDS ORDERED: NITR1SUB3 SL (14:17)
[2017-08-17] MEDS ORDERED: CALCTAB98 PO (14:17)
[2017-08-17] MEDS ORDERED: CLON0.1T PO (14:17)
--- NOTE | 2017-08-17 14:31 | RADRPT ---
EXAM DATE/TIME: 08/17/2017 14:16 [facility] COMPARISON: CT BRAIN W/O CONTRAST, April 27, 2017, 9:58. INDICATIONS : Head pain due to fall. RADIATION DOSE: 30.01 CTDIvol (mGy) MEDICAL HISTORY : Dementia. Seizures. Hypertension.CVA SURGICAL HISTORY : None. ENCOUNTER: Initial ACUITY: 1 day PAIN SCALE: 1/10 LOCATION: Bilateral cranial TECHNIQUE: Multiple contiguous axial images were obtained of the head. Using automated exposure control and adj ustment of the mA and/or kV according to patient size, radiation dose was kept as low as reasonably a chievable to obtain optimal diagnostic quality images. DICOM format image data is available electro nically for review and comparison. FINDINGS: CEREBRUM: The ventricles are prominent. Left parietal/occipital infarct again seen. Areas of low-density in th e white matter again seen. No evidence of midline shift, mass lesion, hemorrhage or acute infarction. No extra-axial fluid collections are seen. POSTERIOR FOSSA: The cerebellum and brainstem are intact. The 4th ventricle is midline. The cerebellopontine angle i s unremarkable. EXTRACRANIAL: The visualized portion of the orbits is intact. SKULL: The calvaria is intact. No evidence of skull fracture. CONCLUSION: 1. Ventricles are dilated out of proportion to the degree of cerebral atrophy but stable. 2. Remote left occipital/parietal infarct. 3. No acute intracranial abnormality. Darrin Kirkland MD on August 17, 2017 at 14:25 Board Certified Radiologist. This report was verified electronically.
--- NOTE | 2017-08-17 14:35 | RADRPT ---
EXAM DATE/TIME: 08/17/2017 14:16 [facility] COMPARISON: No previous studies available for comparison. INDICATIONS : Neck pain due to fall. RADIATION DOSE: 9.70 CTDIvol (mGy) MEDICAL HISTORY : Dementia. Seizures. Hypertension.CVA SURGICAL HISTORY : None. ENCOUNTER: Initial ACUITY: 1 day PAIN SCALE: 1/10 LOCATION: Left neck region. TECHNIQUE: Volumetric scanning of the cervical spine was performed. Multiplanar reconstructions in the sagittal, coronal and oblique axial planes were performed. Using automated exposure control and adjustment o f the mA and/or kV according to patient size, radiation dose was kept as low as reasonably achievable to obtain optimal diagnostic quality images. DICOM format image data is available electronically f or review and comparison. FINDINGS: VERTEBRAE: Normal vertebral body height. Degenerative changes C5-C7 ALIGNMENT: Minimal retrolisthesis C5 on 6. C2-C3: Small central protrusion without canal stenosis. The neural foramina are bilaterally patent. C3-C4: The bony spinal canal is normal in size. No evidence of disc bulge or herniation. The neural forami na are bilaterally patent. C4-C5: Small central protrusion without canal stenosis. The neural foramina are bilaterally patent. C5-C6: The bony spinal canal is normal in size. No evidence of disc bulge or herniation. The neural forami na are bilaterally patent. C6-C7: The bony spinal canal is normal in size. No evidence of disc bulge or herniation. The neural forami na are bilaterally patent. C7-T1: The bony spinal canal is normal in size. No evidence of disc bulge or herniation. The neural forami na are bilaterally patent. CONCLUSION: 1. Degenerative changes without fracture. 2. Degenerative retrolisthesis C5 on 6. Darrin Kirkland MD on August 17, 2017 at 14:33 Board Certified Radiologist. This report was verified electronically.
--- NOTE | 2017-08-17 14:57 | RADRPT ---
EXAM DATE/TIME: 08/17/2017 14:29 [facility] COMPARISON: No previous studies available for comparison. EXTERNAL COMPARISON : INDICATIONS : Left knee pain after fall. MEDICAL HISTORY : Hyperthyroidism. . Dementia. Cerebrovascular accident. Alzheimer's disease. seizures. antico agulant therapy. hypercholesterolemia. depression. anemia. SURGICAL HISTORY : None. ENCOUNTER: Initial ACUITY: 1 day PAIN SCORE: Non-responsive. LOCATION: Left knee FINDINGS: Two view examination of the left knee demonstrates no evidence of fracture or dislocation. Bony mine ralization is normal. The suprapatellar soft tissues have a normal configuration. CONCLUSION: No acute fracture. Darrin Kirkland MD on August 17, 2017 at 14:56 Board Certified Radiologist. This report was verified electronically.
--- NOTE | 2017-08-17 14:57 | RADRPT ---
EXAM DATE/TIME: 08/17/2017 14:28 [facility] COMPARISON: No previous studies available for comparison. INDICATIONS : Right knee pain after fall. MEDICAL HISTORY : Hyperthyroidism. . Dementia. Cerebrovascular accident. Alzheimer's disease. seizures. antico agulant therapy. hypercholesterolemia. depression. anemia. SURGICAL HISTORY : None. ENCOUNTER: Initial ACUITY: 1 day PAIN SCORE: Non-responsive. LOCATION: Right knee FINDINGS: Two view examination of the right knee demonstrates no evidence of fracture or dislocation. Bony min eralization is normal. The suprapatellar soft tissues have a normal configuration. CONCLUSION: No acute fracture. Darrin Kirkland MD on August 17, 2017 at 14:56 Board Certified Radiologist. This report was verified electronically.
[2017-08-17 18:26] VITALS: BP 166/72
--- NOTE | 2017-08-17 18:27 | PD ---
HPI Chief Complaint: Fall Time Seen by Provider: 13:49 Travel History International Travel<30 days: No Contact w/Intl Traveler<30days: No Traveled to known affect area: No History of Present Illness HPI This is an 87-year-old female with history of previous CVA, hypertension, presents today after she had a mechanical fall at the group home. Daughters at bedside states she has had multiple falls in the past. Patient is on Plavix and they were concerned so they sent her here for evaluation. The patient has dysarthria however reports pain in her bilateral knees otherwise no pain. She was unsure of her last tetanus immunization. PFSH Past Medical History Hx Anticoagulant Therapy: Yes Alzheimer's Disease: Yes Anemia: Yes Depression: Yes Cardiovascular Problems: Yes High Cholesterol: Yes Cerebrovascular Accident: Yes (2010; Rt sided defecit) Dementia: Yes Diabetes: No Diminished Hearing: No Genitourinary: Yes Hypertension: Yes Neurologic: Yes (CVA 2010 W/RT SIDE DEFICITS) Immunizations Current: Yes Seizures: Yes Thyroid Disease: Yes (HYPERTHYROID) Menopausal: Yes : 3 Para: 3 Social History Alcohol Use: No Tobacco Use: No Substance Use: No Allergies-Medications (Allergen,Severity, Reaction): Coded Allergies: No Known Allergies (Verified Adverse Reaction, Unknown, 08/13/17) Reported Meds & Prescriptions Reported Meds & Active Scripts Active Augmentin (Amoxicillin-Clavulanate) 875-125 Mg Tab 1 Tab PO BID 10 Days Reported [place] (Hydrocodone-Acetaminophen) 5 Mg-325 Mg Tab 1 Tab PO Q6H PRN Ibuprofen 200 Mg Tab 200 Mg PO Q6H PRN Nitroglycerin SL (Nitroglycerin) 0.4 Mg Subl 0.4 Mg SL DIRECTED PRN ONE TABLET UNDER THE TONGUE NEEDED FOR CHEST PAIN, MAY REPEAT EVERY FIVE MINUTES FOR A TOTAL OF 3 DOSES OR CALL 911 IF NO RELIEF Keppra (Levetiracetam) 500 Mg Tab 500 Mg BID Azo Cranberry (Cranberry-Vitamin C-Probiotic) 250-30 Mg Tab [Calcium] 500 Mg PO BID Pro-Stat Awc Liquid Packet (Amino Acids/Protein Hydrolys) 17 Gram-100 Kcal/30 Ml Liquid.pkt Uti-Stat Liq (Cranberry-Vitamin C-Inulin Liq) 1 Liq 30 Ml PO BID Clonidine (Clonidine HCl) 0.1 Mg Tab 0.1 Mg PO BID PRN Omeprazole 20 Mg Tab 20 Mg PO DAILY Aplisol (Tuberculin Ppd) 5 Tub. Unit/0.1 Ml Inj Lorazepam 0.5 Mg Tab 0.5 Mg PO Q12HR PRN Namenda (Memantine) 10 Mg Tab 10 Mg PO BID Seroquel (Quetiapine Fumarate) 25 Mg Tab 25 Mg PO BID Nifedipine ER 24 HR (Nifedipine) 30 Mg Tab 30 Mg PO HS Hold if SBP <100 or DBP <60 Lovastatin 10 Mg Tab 10 Mg PO HS Lisinopril-Hctz 20-12.5 Mg Tab 1 Tab PO DAILY Hold if SBP <100 or DBP <60 Lactulose 10 Gm/15 Ml Solution 30 Ml PO BID 3 Days Stop date: 01/09/2017 Synthroid (Levothyroxine Sodium) 50 Mcg Tab 50 Mcg PO DAILY Aspirin Adult Low Strength (Aspirin) 81 Mg Tabdr 81 Mg PO DAILY Plavix (Clopidogrel Bisulfate) 75 Mg Tab 75 Mg PO DAILY Review of Systems Except as stated in HPI: all other systems reviewed are Neg General / Constitutional: No: Fever, Chills Eyes: No: Blurred Vision HENT: No: Headaches, Neck Pain Cardiovascular: No: Palpitations Respiratory: No: Cough, Shortness of Breath Gastrointestinal: No: Nausea, Vomiting, Abdominal Pain Genitourinary: No: Incontinence Musculoskeletal: Positive: Pain (Bilateral knees with abrasions.), No: Limited ROM, Edema Skin: Positive Other (Abrasions to bilateral knees) Neurologic: Positive: Other (Previous CVA with expressive aphasia), No: Headache Physical Exam Narrative GENERAL: Well-nourished, well-developed patient, in no acute respiratory distress. SKIN: Focused skin assessment warm/dry. HEAD: Normocephalic/atraumatic. EYES: No scleral icterus. No injection or drainage. NECK: Supple, trachea midline. No cervical spine pain on palpation. CARDIOVASCULAR: Regular rate and rhythm without murmurs, gallops, or rubs. RESPIRATORY: Breath sounds equal bilaterally. No accessory muscle use. GASTROINTESTINAL: Abdomen soft, non-tender, nondistended. MUSCULOSKELETAL: No cyanosis, or edema. Bilateral knee abrasions with full range of motion. BACK: Nontender without obvious deformity. No CVA tenderness. NEUROLOGICAL: Awake and alert. Patient has expressive aphasia. She is able to answer questions with her a phasic responses however understands what I am asking. She will follow commands. Data Data Last Documented VS Vital Signs Date Time Temp Pulse Resp B/P (MAP) Pulse Ox O2 Delivery O2 Flow Rate FiO2 08/17/17 18:26 72 18 166/72 (103) 99 08/17/17 14:01 Aerosol Mask 08/17/17 13:[address] Brain W/O Iv Contrast(Rout) (08/17/17 13:49) Ct Cerv Spine W/O Contrast (08/17/17 13:49) Knee, Ltd (1 Or 2vws) (08/17/17 13:49) Knee, Ltd (1 Or 2vws) (08/17/17 13:49) Tetanus/Diphtheria Tox Adult (Tetanus/Di (08/17/17 14:00) MDM Medical Decision Making Medical Screen Exam Complete: Yes Emergency Medical Condition: Yes Differential Diagnosis Intracranial injury versus left knee injury versus right knee injury versus cervical spine injury Narrative Course 87-year-old female presents after having mechanical fall at the group home. Patient has bilateral abrasions to her knees. There is no obvious bony deformity. X-rays of her bilateral knees show no evidence of acute fracture dislocation. CT brain shows an old stroke with no acute process. See her cervical spine CT shows no evidence of acute process. She has been given tetanus immunization. She will be discharged back to the group home. I discussed the findings with both the patient and her daughter and they are amenable to her going back home. Diagnosis Primary Impression: Mechanical fall. Additional Impressions: Reported closed head injury Bilateral knee contusion/abrasions Additional Instructions: Keep abrasions clean and dry. Disposition: DISCHARGE HOME Condition: Stable Jose De Jesus Dunlap MD Aug 17, 2017 18:27
== END 2017-08-17 19:09 | disposition home or self-care (01) ==
LOC: NEPE 13:30
DX: S80.02XA Contusion of left knee, initial encounter (principal); S80.01XA Contusion of right knee, initial encounter; S09.90XA Unspecified injury of head, initial encounter; G30.9 Alzheimer's disease, unspecified; F02.80 Dementia in other diseases classified elsewhere, unspecified severity, without behavioral disturbance, psychotic disturbance, mood disturbance, and anxiety; Z86.73 Personal history of transient ischemic attack (TIA), and cerebral infarction without residual deficits; W18.30XA Fall on same level, unspecified, initial encounter; Y92.129 Unspecified place in nursing home as the place of occurrence of the external cause; Z23 Encounter for immunization
CPT/HCPCS: 70450; 72125; 73560; 90471; 90714

== ENCOUNTER 2017-09-15 16:34 | Emergency (ER) | payer MEDICARE, OTHER ==
[~2017-09-15 16:34] MED LIST changes: -AMINLIQ7 PO; +APLI5INJ2; +AZO-450T; +CALCTAB98 PO; +CLON0.1T PO; +IBUP200T47 PO; +LEVE500; -LEVE500 PO; +LORA0.5T PO; -NAME5TAB2 PO; +NITR1SUB3 SL; +NORC5TAB PO; +OMEP20TA93 PO; +[UNRECOGNIZED DRUG - CODE]
[2017-09-15 17:06] VITALS: BP 160/72; PULSE 64; RESP 16; TEMP 97.6; O2SAT 96
--- NOTE | 2017-09-15 17:59 | PD ---
HPI Chief Complaint: Fall Time Seen by Provider: 17:49 Travel History International Travel<30 days: No Contact w/Intl Traveler<30days: No Traveled to known affect area: No History of Present Illness HPI 87-year-old female assisted patient with history of dementia, presents to the ER today because she had fallen out of bed according to facility. Patient is fairly demented and not able to give me much history. She would not be a reliable historian. She has a skin tear in her right elbow but does not appear to have significant other injuries. 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) Immunizations Current: Yes Seizures: Yes Thyroid Disease: Yes (HYPERTHYROID) Menopausal: Yes : 3 Para: 3 Social History Alcohol Use: No Tobacco Use: No Substance Use: No Allergies-Medications (Allergen,Severity, Reaction): Coded Allergies: No Known Allergies (Verified Adverse Reaction, Unknown, 08/13/17) Reported Meds & Prescriptions Reported Meds & Active Scripts Active Augmentin (Amoxicillin-Clavulanate) 875-125 Mg Tab 1 Tab PO BID 10 Days Reported [place] (Hydrocodone-Acetaminophen) 5 Mg-325 Mg Tab 1 Tab PO Q6H PRN Ibuprofen 200 Mg Tab 200 Mg PO Q6H PRN Nitroglycerin SL (Nitroglycerin) 0.4 Mg Subl 0.4 Mg SL DIRECTED PRN ONE TABLET UNDER THE TONGUE NEEDED FOR CHEST PAIN, MAY REPEAT EVERY FIVE MINUTES FOR A TOTAL OF 3 DOSES OR CALL 911 IF NO RELIEF Keppra (Levetiracetam) 500 Mg Tab 500 Mg BID Azo Cranberry (Cranberry-Vitamin C-Probiotic) 250-30 Mg Tab [Calcium] 500 Mg PO BID Pro-Stat [place] Liquid Packet (Amino Acids/Protein Hydrolys) 17 Gram-100 Kcal/30 Ml Liquid.pkt Uti-Stat Liq (Cranberry-Vitamin C-Inulin Liq) 1 Liq 30 Ml PO BID Clonidine (Clonidine HCl) 0.1 Mg Tab 0.1 Mg PO BID PRN Omeprazole 20 Mg Tab 20 Mg PO DAILY Aplisol (Tuberculin Ppd) 5 Tub. Unit/0.1 Ml Inj Lorazepam 0.5 Mg Tab 0.5 Mg PO Q12HR PRN Namenda (Memantine) 10 Mg Tab 10 Mg PO BID Seroquel (Quetiapine Fumarate) 25 Mg Tab 25 Mg PO BID Nifedipine ER 24 HR (Nifedipine) 30 Mg Tab 30 Mg PO HS Hold if SBP <100 or DBP <60 Lovastatin 10 Mg Tab 10 Mg PO HS Lisinopril-Hctz 20-12.5 Mg Tab 1 Tab PO DAILY Hold if SBP <100 or DBP <60 Lactulose 10 Gm/15 Ml Solution 30 Ml PO BID 3 Days Stop date: 01/09/2017 Synthroid (Levothyroxine Sodium) 50 Mcg Tab 50 Mcg PO DAILY Aspirin Adult Low Strength (Aspirin) 81 Mg Tabdr 81 Mg PO DAILY Plavix (Clopidogrel Bisulfate) 75 Mg Tab 75 Mg PO DAILY Review of Systems ROS Limitations: Altered Mental Status Physical Exam Narrative GENERAL: Well-developed elderly female patient currently in mild distress. Awake, not oriented. SKIN: Focused skin assessment warm/dry. HEAD: Atraumatic. Normocephalic. EYES: Pupils equal and round. No scleral icterus. No injection or drainage. ENT: No nasal bleeding or discharge. Mucous membranes pink and moist. NECK: Trachea midline. No JVD. CARDIOVASCULAR: Regular rate and rhythm. No murmur appreciated. RESPIRATORY: No accessory muscle use. Clear to auscultation. Breath sounds equal bilaterally. GASTROINTESTINAL: Abdomen soft, non-tender, nondistended. Hepatic and splenic margins not palpable. MUSCULOSKELETAL: No obvious deformities. No clubbing. No cyanosis. No edema. NEUROLOGICAL: Awake and alert, disoriented. No obvious cranial nerve deficits. Right-sided weakness. Stuttering speech. PSYCHIATRIC: Disoriented and agitated mood and affect; insight and judgment poor . Data Data Last Documented VS Vital Signs Date Time Temp Pulse Resp B/P (MAP) Pulse Ox O2 Delivery O2 Flow Rate FiO2 09/15/17 17:06 97.6 64 16 160/72 (101) 96 Orders Orders Electrocardiogram (09/15/17 17:49) Complete Blood Count With Diff (09/15/17 17:49) Comprehensive Metabolic Panel (09/15/17 17:49) Act Partial Throm Time (Ptt) (09/15/17 17:49) Prothrombin Time / Inr (Pt) (09/15/17 17:49) Chest, Single Ap (09/15/17 17:49) Ct Brain W/O Iv Contrast(Rout) (09/15/17 17:49) Ct Cerv Spine W/O Contrast (09/15/17 17:49) Ecg Monitoring (09/15/17 17:49) Iv Access Insert/Monitor (09/15/17 17:49) Oximetry (09/15/17 17:49) Sodium Chloride 0.9% Flush (Ns Flush) (09/15/17 18:00) Pelvis, Ap Only (Routine) (09/15/17 17:49) Labs Laboratory Tests Test 09/15/17 18:53 [facility] Medical Decision Making Medical Screen Exam Complete: Yes Emergency Medical Condition: Yes Medical Record Reviewed: Yes Interpretation(s) Last 24 hours Impressions Pelvis X-Ray [id number]/[id number] Signed Impressions: Service Date/Time: Friday, September 15, 2017 18:01 - CONCLUSION: No acute disease. Oscar Jarvis MD Head CT [id number]/[id number] Signed Impressions: Service Date/Time: Friday, September 15, 2017 18:10 - CONCLUSION: 1. No acute abnormality seen. 2. Encephalomalacia at the left parietal lobe. 3. Atrophy. The ventricles do appear dilated out of proportion to sulcal widening which can suggest normal pressure hydrocephalus. Oscar Jarvis MD Chest X-Ray [id number] Signed Impressions: Service Date/Time: Friday, September 15, 2017 18:03 - CONCLUSION: No acute disease. Oscar Jarvis MD Cervical Spine CT [id number] Signed Impressions: Service Date/Time: Friday, September 15, 2017 18:10 - CONCLUSION: 1. No acute abnormality seen. 2. Mild degenerative change. Oscar Jarvis MD Differential Diagnosis Acute intracranial injuries versus contusions Narrative Course CAT scans did not show any signs of acute injuries. Lab work was also sent for further evaluation. Physician Communication Physician Communication Case is signed out to Dr. Gomez awaiting lab work. If unremarkable, planning on release. Diagnosis Primary Impression: Fall from bed Disposition: 03 DISCHARGE TO SNF Condition: Stable [place],Rewadee MD Sep 15, 2017 17:59
[2017-09-15] MEDS ORDERED: SODIUM CHLORIDE 0.9% FLUSH 10 ML FLUSH IVF PRN (18:00)
--- NOTE | 2017-09-15 18:41 | RADRPT ---
EXAM DATE/TIME: 09/15/2017 18:01 [facility] COMPARISON: No previous studies available for comparison. INDICATIONS : Patient fell today, unable to obtain history. MEDICAL HISTORY : Dementia. Seizures. Hypertension.CVA SURGICAL HISTORY : None. ENCOUNTER: Initial ACUITY: 1 day PAIN SCORE: 7/10 LOCATION: pelvis FINDINGS: A single frontal view of the pelvis demonstrates no evidence of fracture. The bony pelvic ring is in tact. Bony mineralization is normal. The soft tissues are intact. There is degenerative change in t he lower lumbar spine. CONCLUSION: No acute disease. Oscar Jarvis MD on September 15, 2017 at 18:39 Board Certified Radiologist. This report was verified electronically.
--- NOTE | 2017-09-15 18:41 | RADRPT ---
EXAM DATE/TIME: 09/15/2017 18:03 [facility] COMPARISON: CHEST SINGLE AP, January 08, 2017, 11:58. INDICATIONS : Patient fell today, history not available. MEDICAL HISTORY : Venous insufficiency. Dementia. Seizures. Hypertension.CVA SURGICAL HISTORY : None. ENCOUNTER: Initial ACUITY: 1 day PAIN SCORE: 8/10 LOCATION: upper chest FINDINGS: A single view of the chest demonstrates the lungs to be symmetrically aerated without evidence of mas s, infiltrate or effusion. The cardiomediastinal contours are unremarkable. Osseous structures are intact. CONCLUSION: No acute disease. Oscar Jarvis MD on September 15, 2017 at 18:39 Board Certified Radiologist. This report was verified electronically.
--- NOTE | 2017-09-15 18:44 | RADRPT ---
EXAM DATE/TIME: 09/15/2017 18:10 [facility] COMPARISON: CT BRAIN W/O CONTRAST, August 17, 2017, 14:16. INDICATIONS : Post fall from bed today. RADIATION DOSE: 56.35 CTDIvol (mGy) MEDICAL HISTORY : Cardiovascular disease. Dementia. Alzheimers.Seizures SURGICAL HISTORY : None. ENCOUNTER: Initial ACUITY: 1 day PAIN SCALE: 2/10 LOCATION: Bilateral cranial TECHNIQUE: Multiple contiguous axial images were obtained of the head. Using automated exposure control and adj ustment of the mA and/or kV according to patient size, radiation dose was kept as low as reasonably a chievable to obtain optimal diagnostic quality images. DICOM format image data is available electro nically for review and comparison. FINDINGS: CEREBRUM: The ventricles and cortical sulci are widened. There is encephalomalacia at the left parietal lobe wi th expansion of the posterior aspect of the left lateral ventricle. No evidence of midline shift, mas s lesion, hemorrhage or acute infarction. No extra-axial fluid collections are seen. POSTERIOR FOSSA: The cerebellum and brainstem are intact. The 4th ventricle is midline. The cerebellopontine angle i s unremarkable. EXTRACRANIAL: The visualized portion of the orbits is intact. SKULL: The calvaria is intact. No evidence of skull fracture. CONCLUSION: 1. No acute abnormality seen. 2. Encephalomalacia at the left parietal lobe. 3. Atrophy. The ventricles do appear dilated out of proportion to sulcal widening which can suggest n ormal pressure hydrocephalus. Oscar Jarvis MD on September 15, 2017 at 18:40 Board Certified Radiologist. This report was verified electronically.
--- NOTE | 2017-09-15 18:59 | RADRPT ---
EXAM DATE/TIME: 09/15/2017 18:10 [facility] COMPARISON: CT CERVICAL SPINE W/O CONTRAST, August 17, 2017, 14:16. INDICATIONS : Post fall from bed today. RADIATION DOSE: 13.32 CTDIvol (mGy) MEDICAL HISTORY : Cardiovascular disease. Dementia. Alzheimers.Seizure SURGICAL HISTORY : None. ENCOUNTER: Initial ACUITY: 1 day PAIN SCALE: 4/10 LOCATION: neck TECHNIQUE: Volumetric scanning of the cervical spine was performed. Multiplanar reconstructions in the sagittal, coronal and oblique axial planes were performed. Using automated exposure control and adjustment o f the mA and/or kV according to patient size, radiation dose was kept as low as reasonably achievable to obtain optimal diagnostic quality images. DICOM format image data is available electronically f or review and comparison. FINDINGS: VERTEBRAE: Normal vertebral body height. ALIGNMENT: There is minimal posterior subluxation of C5 on C6. C2-C3: The bony spinal canal is normal in size. No evidence of disc bulge or herniation. The neural forami na are bilaterally patent. There is right facet hypertrophy. C3-C4: The bony spinal canal is normal in size. No evidence of disc bulge or herniation. The neural forami na are bilaterally patent. There is mild facet hypertrophy being worse on the left. C4-C5: The bony spinal canal is normal in size. No evidence of disc bulge or herniation. The neural forami na are bilaterally patent. There is mild facet hypertrophy being worse on the left. C5-C6: The disc demonstrates decreased height. There is minimal posterior subluxation of C5 on C6. There is minimal facet hypertrophy. Significant stenosis is not seen. The neural foramina are bilaterally pat ent. C6-C7: The disc demonstrates decreased height. The bony spinal canal is normal in size. No evidence of disc bulge or herniation. The neural foramina are bilaterally patent. C7-T1: The bony spinal canal is normal in size. No evidence of disc bulge or herniation. The neural forami na are bilaterally patent. CONCLUSION: 1. No acute abnormality seen. 2. Mild degenerative change. Oscar Jarvis MD on September 15, 2017 at 18:54 Board Certified Radiologist. This report was verified electronically.
[2017-09-15 19:15] LABS: AUTOMATED NEUTROPHIL # 5.3 TH/MM3 (1.8-7.7); BASOPHIL % 0.5 % (0.0-2.0); EOSINOPHIL # 0.1 TH/MM3 (0-0.4); EOSINOPHIL % 1.4 % (0.0-4.0); HEMATOCRIT 36.9 % (35.0-46.0); HEMOGLOBIN 12.1 GM/DL (11.6-15.3); LYMPH % 29.6 % (9.0-44.0); LYMPHOCYTE # 2.7 TH/MM3 (1.0-4.8); MEAN CELL VOLUME 91.2 FL (80.0-100.0); MEAN CORPUSCULAR HEMOGLOBIN 29.9 PG (27.0-34.0); MEAN CORPUSCULAR HGB CONC 32.8 % (32.0-36.0); MEAN PLATELET VOLUME 8.5 FL (7.0-11.0); MONO % 10.4 % (0.0-8.0); NEUT % 58.1 % (16.0-70.0); PLATELET COUNT 289 TH/MM3 (150-450); RED BLOOD COUNT 4.04 MIL/MM3 (4.00-5.30); RED CELL DISTRIBUTION WIDTH 14.1 % (11.6-17.2); WHITE BLOOD COUNT 9.2 TH/MM3 (4.0-11.0)
[2017-09-15 19:40] LABS: ALBUMIN 3.1 GM/DL (3.4-5.0); ALT (GPT) 21 U/L (10-53); AST (GOT) 27 U/L (15-37); BICARBONATE 28.6 MEQ/L (21.0-32.0); BLOOD UREA NITROGEN 19 MG/DL (7-18); CALCIUM 8.9 MG/DL (8.5-10.1); CHLORIDE 108 MEQ/L (98-107); CREATININE 0.67 MG/DL (0.50-1.00); GLOMERULAR FILTRATION RATE 84 ML/MIN (>89); GLUCOSE,RANDOM 87 MG/DL (74-106); SODIUM (NA) 143 MEQ/L (136-145)
[2017-09-15 19:42] LABS: ALKALINE PHOSPHATASE 111 U/L (45-117); TOTAL BILIRUBIN ADULT 0.3 MG/DL (0.2-1.0); TOTAL PROTEIN 6.5 GM/DL (6.4-8.2)
[2017-09-15 20:22] VITALS: BP 176/77; PULSE 61; RESP 18; O2SAT 98
[2017-09-15 20:29] VITALS: BP 108/57; RESP 18; O2SAT 98
[2017-09-15 21:05] LABS: AMORPHOUS SEDIMENT, URINE RARE; BACTERIA, URINE FEW /hpf; BILIRUBIN, URINE NEG (NEG); BLOOD, URINE NEG (NEG); GLUCOSE,URINE NEG (NEG); KETONE, URINE NEG (NEG); NITRITE,URINE NEG (NEG); PH, URINE 6.5 (5.0-8.5); URINE COLOR LIGHT-YELLOW (YELLW/STRAW); URINE LEUKOCYTE ESTERASE LARGE (NEG)
[2017-09-15] MEDS ORDERED: cefTRIAXone INJ 1,000 MG in SODIUM CHLORIDE 0.9% INJ 100 ML IV ONE (22:00)
--- NOTE | 2017-09-15 22:02 | PD ---
Physical Exam Date Seen by Provider: Sep 15, 2017 Time Seen by Provider: 20:00 Narrative Patient is signed out to me by the prior attending . pt has fallen in the last few months but tonight her weakness could be attributed to a UTI. Her urine Which shows that she's got 106 wbc's in her urine. I treat her with ceftriaxone discharge back to the half-way with Bactrim twice a day for 7 days Data Data Last Documented VS Vital Signs Date Time Temp Pulse Resp B/P (MAP) Pulse Ox O2 Delivery O2 Flow Rate FiO2 09/15/17 23:26 09/15/17 20:29 18 98 Room Air 09/15/17 20:22 61 09/15/17 17:06 97.6 Orders Orders Electrocardiogram (09/15/17 17:49) Complete Blood Count With Diff (09/15/17 17:49) Comprehensive Metabolic Panel (09/15/17 17:49) Act Partial Throm Time (Ptt) (09/15/17 17:49) Prothrombin Time / Inr (Pt) (09/15/17 17:49) Chest, Single Ap (09/15/17 17:49) Ct Brain W/O Iv Contrast(Rout) (09/15/17 17:49) Ct Cerv Spine W/O Contrast (09/15/17 17:49) Ecg Monitoring (09/15/17 17:49) Iv Access Insert/Monitor (09/15/17 17:49) Oximetry (09/15/17 17:49) Sodium Chloride 0.9% Flush (Ns Flush) (09/15/17 18:00) Pelvis, Ap Only (Routine) (09/15/17 17:49) Urinalysis - C+S If Indicated (09/15/17 19:34) Ammonia (09/15/17 20:08) Lactic Acid (09/15/17 20:08) Troponin I (09/15/17 20:09) Troponin I (09/15/17 20:18) Urine Culture (09/15/17 20:05) Ceftriaxone Inj (Rocephin Inj) (09/15/17 22:00) Ed Discharge Order (09/15/17 22:55) Labs Laboratory Tests Test 09/15/17 18:53 09/15/17 20:05 09/15/17 20:15 White Blood Count 9.2 TH/MM3 Red Blood Count 4.04 MIL/MM3 Hemoglobin 12.1 GM/DL Hematocrit 36.9 % Mean Corpuscular Volume 91.2 FL Mean Corpuscular Hemoglobin 29.9 PG Mean Corpuscular Hemoglobin Concent 32.8 % Red Cell Distribution Width 14.1 % Platelet Count 289 TH/MM3 Mean Platelet Volume 8.5 FL Neutrophils (%) (Auto) 58.1 % Lymphocytes (%) (Auto) 29.6 % Monocytes (%) (Auto) 10.4 % Eosinophils (%) (Auto) 1.4 % Basophils (%) (Auto) 0.5 % Neutrophils # (Auto) 5.3 TH/MM3 Lymphocytes # (Auto) 2.7 TH/MM3 Monocytes # (Auto) 1.0 TH/MM3 Eosinophils # (Auto) 0.1 TH/MM3 Basophils # (Auto) 0.0 TH/MM3 CBC Comment DIFF FINAL Differential Comment Prothrombin Time 10.0 SEC Prothromb Time International Ratio 1.0 RATIO Activated Partial Thromboplast Time 22.3 SEC Blood Urea Nitrogen 19 MG/DL Creatinine 0.67 MG/DL Random Glucose 87 MG/DL Total Protein 6.5 GM/DL Albumin 3.1 GM/DL Calcium Level 8.9 MG/DL Alkaline Phosphatase 111 U/L Aspartate Amino Transf (AST/SGOT) 27 U/L Alanine Aminotransferase (ALT/SGPT) 21 U/L Total Bilirubin 0.3 MG/DL Sodium Level 143 MEQ/L Potassium Level 4.0 MEQ/L Chloride Level 108 MEQ/L Carbon Dioxide Level 28.6 MEQ/L Anion Gap 6 MEQ/L Estimat Glomerular Filtration Rate 84 ML/MIN Troponin I LESS THAN 0.02 NG/ML LESS THAN 0.02 NG/ML Urine Color LIGHT-YELLOW Urine Turbidity HAZY Urine pH 6.5 Urine Specific [place] 1.020 Urine Protein NEG mg/dL Urine Glucose (UA) NEG mg/dL Urine Ketones NEG mg/dL Urine Occult Blood NEG Urine Nitrite NEG Urine Bilirubin NEG Urine Urobilinogen LESS THAN 2.0 MG/DL Urine Leukocyte Esterase LARGE Urine RBC 6 /hpf Urine WBC 105 /hpf Urine Amorphous Sediment RARE Urine Bacteria FEW /hpf Microscopic Urinalysis Comment CULTURE INDICATED Lactic Acid Level 1.1 mmol/L Ammonia 14 MCMOL/L [facility] Medical Record Reviewed: Yes Supervised Visit with ARLENE: Yes Narrative Course UTI given IV rocephin and then D/C wth bactrim DS rx to SNF Diagnosis Primary Impression: Fall from bed Qualified Codes: W06.XXXA - Fall from bed, initial encounter Additional Impression: UTI (urinary tract infection) Qualified Codes: N30.00 - Acute cystitis without hematuria Patient Instructions: General Instructions, Urinary Tract Infection in Women ( ED) Scripts Sulfamethoxazole-Trimethoprim (Bactrim DS) 800-160 Mg Tab 1 TAB PO BID for Infection, #14 TAB 0 Refills Prov: Reed Gomez MD 09/15/17 Disposition: 03 DISCHARGE TO SNF Condition: Reed Iglesias MD Sep 15, 2017 22:02
[2017-09-15] MEDS ORDERED: BACT800T5 PO (22:54)
--- NOTE | 2017-09-16 12:33 | EKG ---
Date Performed: 09/15/2017 Time Performed: 19:08:55 PTAGE: 87 years EKG: Sinus rhythm LOW QRS VOLTAGE IN PRECORDIAL LEADS BORDERLINE ECG PREVIOUS TRACING : 01/08/2017 12.22 Since the previous tracing, no significant change noted DOCTOR: Buddy Martinez Interpretating Date/Time 09/16/2017 12:32:50
== END 2017-09-15 23:27 ==
LOC: NEPE 16:34
DX: N30.00 Acute cystitis without hematuria (principal); G30.9 Alzheimer's disease, unspecified; F02.80 Dementia in other diseases classified elsewhere, unspecified severity, without behavioral disturbance, psychotic disturbance, mood disturbance, and anxiety; E78.00 Pure hypercholesterolemia, unspecified; I10 Essential (primary) hypertension; W06.XXXA Fall from bed, initial encounter
CPT/HCPCS: 70450; 71045; 72125; 72170; 80053; 81001; 82140; 83605; 84484; 85025; 85610; 85730; 87086; 93005; 96365; 99285; J0696

== ENCOUNTER 2017-12-14 11:15 | Inpatient (IN) | payer MEDICARE, OTHER ==
[~2017-12-14] VITALS: Ht 154.9 cm; Wt 45.0 kg
[2017-12-14] VITALS (7 sets, daily range): BP systolic 110–162; BP diastolic 68–78; PULSE 58–74; RESP 16–18; TEMP 97.3–98.9; O2SAT 95–99
[~2017-12-14 11:15] MED LIST changes: -AZO-450T; +AZO-450T PO; +BACT800T5 PO
[2017-12-14] MEDS ORDERED: SODIUM CHLORIDE 0.9% FLUSH 10 ML FLUSH IV FLUSH PRN ×2 (11:45→15:15)
--- NOTE | 2017-12-14 12:17 | PD ---
HPI Chief Complaint: Altered Mental Status Time Seen by Provider: 11:33 Travel History International Travel<30 days: No Contact w/Intl Traveler<30days: No Traveled to known affect area: No History of Present Illness HPI 87 year old female presents to the emergency department via EMS from nursing facility for AMS. According to paramedics, patient has dementia and has history of right sided weakness from previous CVA. Patient is noncontributory with history and physical. She is alert, but is oriented to person, place, time. According to the nurse who took report from EMS, this is her baseline. She is being treated for a UTI with ciprofloxacin. Family is not available at this time. The patient does not follow commands. Moderate severity. PFSH Past Medical History Hx Anticoagulant Therapy: Yes Alzheimer's Disease: Yes Anemia: Yes Depression: Yes Cardiovascular Problems: Yes High Cholesterol: Yes Cerebrovascular Accident: Yes (2010; Rt sided defecit) Dementia: Yes Diabetes: No Diminished Hearing: No Genitourinary: Yes Hypertension: Yes Neurologic: Yes (CVA 2010 W/RT SIDE DEFICITS) Immunizations Current: Yes Seizures: Yes Thyroid Disease: Yes (HYPERTHYROID) Menopausal: Yes : 3 Para: 3 Social History Alcohol Use: No Tobacco Use: No Substance Use: No Allergies-Medications (Allergen,Severity, Reaction): Coded Allergies: No Known Allergies (Verified Adverse Reaction, Unknown, 08/13/17) Reported Meds & Prescriptions Reported Meds & Active Scripts Active Bactrim DS (Sulfamethoxazole-Trimethoprim) 800-160 Mg Tab 1 Tab PO BID Augmentin (Amoxicillin-Clavulanate) 875-125 Mg Tab 1 Tab PO BID 10 Days Reported [place] (Hydrocodone-Acetaminophen) 5 Mg-325 Mg Tab 1 Tab PO Q6H PRN Ibuprofen 200 Mg Tab 200 Mg PO Q6H PRN Nitroglycerin SL (Nitroglycerin) 0.4 Mg Subl 0.4 Mg SL DIRECTED PRN ONE TABLET UNDER THE TONGUE NEEDED FOR CHEST PAIN, MAY REPEAT EVERY FIVE MINUTES FOR A TOTAL OF 3 DOSES OR CALL 911 IF NO RELIEF Keppra (Levetiracetam) 500 Mg Tab 500 Mg BID Azo Cranberry (Cranberry-Vitamin C-Probiotic) 250-30 Mg Tab [Calcium] 500 Mg PO BID Pro-Stat Awc Liquid Packet (Amino Acids/Protein Hydrolys) 17 Gram-100 Kcal/30 Ml Liquid.pkt Uti-Stat Liq (Cranberry-Vitamin C-Inulin Liq) 1 Liq 30 Ml PO BID Clonidine (Clonidine HCl) 0.1 Mg Tab 0.1 Mg PO BID PRN Omeprazole 20 Mg Tab 20 Mg PO DAILY Aplisol (Tuberculin Ppd) 5 Tub. Unit/0.1 Ml Inj Lorazepam 0.5 Mg Tab 0.5 Mg PO Q12HR PRN Namenda (Memantine) 10 Mg Tab 10 Mg PO BID Seroquel (Quetiapine Fumarate) 25 Mg Tab 25 Mg PO BID Nifedipine ER 24 HR (Nifedipine) 30 Mg Tab 30 Mg PO HS Hold if SBP <100 or DBP <60 Lovastatin 10 Mg Tab 10 Mg PO HS Lisinopril-Hctz 20-12.5 Mg Tab 1 Tab PO DAILY Hold if SBP <100 or DBP <60 Lactulose 10 Gm/15 Ml Solution 30 Ml PO BID 3 Days Stop date: 01/09/2017 Synthroid (Levothyroxine Sodium) 50 Mcg Tab 50 Mcg PO DAILY Aspirin Adult Low Strength (Aspirin) 81 Mg Tabdr 81 Mg PO DAILY Plavix (Clopidogrel Bisulfate) 75 Mg Tab 75 Mg PO DAILY Review of Systems ROS Limitations: Altered Mental Status, Poor Historian Except as stated in HPI: all other systems reviewed are Neg Physical Exam Narrative GENERAL: Well-nourished, well-developed elderly female patient, afebrile. Patient is disoriented, but alert. SKIN: Focused skin assessment warm/dry. HEAD: Normocephalic. Atraumatic. EYES: No scleral icterus. No injection or drainage. NECK: Supple, trachea midline. No JVD or lymphadenopathy. CARDIOVASCULAR: Regular rate and rhythm without murmurs, gallops, or rubs. RESPIRATORY: Breath sounds equal bilaterally. No accessory muscle use. Lung sounds are clear to auscultation. GASTROINTESTINAL: Abdomen soft, non-tender, nondistended. MUSCULOSKELETAL: No cyanosis, or edema. Patient has right-sided deficit. She moves her left upper and lower extremity, but does not follow commands. BACK: Nontender without obvious deformity. No CVA tenderness. Data Data Last Documented VS Vital Signs Date Time Temp Pulse Resp B/P (MAP) Pulse Ox O2 Delivery O2 Flow Rate FiO2 12/14/17 12:36 99 Room Air 12/14/17 11:18 98.9 74 16 110/70 (83) Orders Orders Electrocardiogram (12/14/17 11:45) Ammonia (12/14/17 11:45) Complete Blood Count With Diff (12/14/17 11:45) Comprehensive Metabolic Panel (12/14/17 11:45) Creatine Kinase (Cpk) (12/14/17 11:45) Prothrombin Time / Inr (Pt) (12/14/17 11:45) Act Partial Throm Time (Ptt) (12/14/17 11:45) Troponin I (12/14/17 11:45) Urinalysis - C+S If Indicated (12/14/17 11:45) Lactic Acid Sepsis Protocol (12/14/17 11:45) Blood Culture (12/14/17 11:45) Chest, Single Ap (12/14/17 11:45) Ct Brain W/O Iv Contrast(Rout) (12/14/17 11:45) Blood Glucose (12/14/17 11:45) Ecg Monitoring (12/14/17 11:45) Iv Access Insert/Monitor (12/14/17 11:45) Cath For Specimen (12/14/17 11:45) Oximetry (12/14/17 11:45) Sodium Chloride 0.9% Flush (Ns Flush) (12/14/17 11:45) Magnesium (Mg) (12/14/17 11:45) Urine Culture (12/14/17 12:30) Ceftriaxone Inj (Rocephin Inj) (12/14/17 14:00) Aspirin Supp (Aspirin Supp) (12/14/17 14:00) Admit Order (Ed Use Only) (12/14/17 14:12) Labs Laboratory Tests Test 12/14/17 12:15 12/14/17 12:30 White Blood Count 11.4 TH/MM3 Red Blood Count 4.11 MIL/MM3 Hemoglobin 12.3 GM/DL Hematocrit 37.5 % Mean Corpuscular Volume 91.3 FL Mean Corpuscular Hemoglobin 29.9 PG Mean Corpuscular Hemoglobin Concent 32.7 % Red Cell Distribution Width 14.4 % Platelet Count 298 TH/MM3 Mean Platelet Volume 8.2 FL Neutrophils (%) (Auto) 63.9 % Lymphocytes (%) (Auto) 25.2 % Monocytes (%) (Auto) 9.4 % Eosinophils (%) (Auto) 1.2 % Basophils (%) (Auto) 0.3 % Neutrophils # (Auto) 7.3 TH/MM3 Lymphocytes # (Auto) 2.9 TH/MM3 Monocytes # (Auto) 1.1 TH/MM3 Eosinophils # (Auto) 0.1 TH/MM3 Basophils # (Auto) 0.0 TH/MM3 CBC Comment DIFF FINAL Differential Comment Prothrombin Time 10.0 SEC Prothromb Time International Ratio 1.0 RATIO Activated Partial Thromboplast Time 21.6 SEC Blood Urea Nitrogen 18 MG/DL Creatinine 0.77 MG/DL Random Glucose 93 MG/DL Total Protein 6.8 GM/DL Albumin 3.3 GM/DL Calcium Level 8.5 MG/DL Magnesium Level 2.1 MG/DL Alkaline Phosphatase 82 U/L Aspartate Amino Transf (AST/SGOT) 18 U/L Alanine Aminotransferase (ALT/SGPT) 15 U/L Total Bilirubin 0.3 MG/DL Sodium Level 142 MEQ/L Potassium Level 3.8 MEQ/L Chloride Level 107 MEQ/L Carbon Dioxide Level 28.5 MEQ/L Anion Gap 7 MEQ/L Estimat Glomerular Filtration Rate 71 ML/MIN Lactic Acid Level 1.3 mmol/L Ammonia 30 MCMOL/L Total Creatine Kinase 34 U/L Troponin I LESS THAN 0.02 NG/ML Urine Color YELLOW Urine Turbidity HAZY Urine pH 5.0 Urine Specific [place] 1.019 Urine Protein NEG mg/dL Urine Glucose (UA) NEG mg/dL Urine Ketones NEG mg/dL Urine Occult Blood NEG Urine Nitrite NEG Urine Bilirubin NEG Urine Urobilinogen LESS THAN 2 mg/dL Urine Leukocyte Esterase MOD Urine RBC 1 /hpf Urine WBC 11 /hpf Urine Squamous Epithelial Cells <1 /hpf Urine Bacteria RARE /hpf Microscopic Urinalysis Comment CATH-CULTURE IND MDM Medical Decision Making Medical Screen Exam Complete: Yes Emergency Medical Condition: Yes Medical Record Reviewed: Yes Differential Diagnosis CVA versus dementia versus UTI versus sepsis versus pneumonia versus acute abnormality versus dehydration Narrative Course 87-year-old female presents to the emergency department via EMS for altered mental status from nursing facility. Patient is disoriented and does not follow commands. She is noncontributory to history and physical. EKG, CBC, CMP , ammonia, CK, troponin, magnesium, PTT, PT/INR, lactic acid, blood cultures 2 , UA are ordered and pending. CT of the brain and chest x-ray ordered and pending. Patient is initially seen an ambulance hallway. She will be transferred to medical bed for further evaluation and disposition. Dara Moran Dec 14, 2017 12:17
--- NOTE | 2017-12-14 12:17 | RADRPT ---
EXAM DATE: 12/14/2017 12:08 PM EDT AGE/SEX: 87 years / Female INDICATIONS: Altered mental status. CLINICAL DATA: This is the patient's initial encounter. Patient reports that signs and symptoms have been present for 1 day and indicates a pain score of 0/10. MEDICAL/SURGICAL HISTORY: Stroke. Hypertension. Dementia. Alzheimer. None. RADIATION DOSE: 66. CTDI (mGy) [place] [facility] [place]. . TECHNIQUE: CT of the head without contrast. Using automated exposure control and adjustment of the mA and/or kV according to patient size, radiation dose was kept as low as reasonably achievable to ob tain optimal diagnostic quality images. DICOM format image data is available electronically for revi ew and comparison. FINDINGS: Cerebrum: There is a remote infarct in the left parieto-occipital region with dilatation of the post erior horn left lateral ventricle similar to prior study in August. No new intracranial hemorrhage, ma ss effect or shift. Stable ventricular size. Posterior Fossa: The cerebellum and brainstem are intact. The 4th ventricle is midline. The cerebe llopontine angle is unremarkable. Extracranial: The visualized portion of the orbits is intact. Skull: The calvaria is intact. No evidence of skull fracture. CONCLUSION: 1. Stable ventriculomegaly with remote infarct in the left parieto-occipital region, compared with M arch 2017. Electronically signed by: Jameson Erwin MD 12/14/2017 12:16 PM EDT
[2017-12-14 12:43] LABS: AUTOMATED NEUTROPHIL # 7.3 TH/MM3 (1.8-7.7); BASOPHIL % 0.3 % (0.0-2.0); EOSINOPHIL # 0.1 TH/MM3 (0-0.4); EOSINOPHIL % 1.2 % (0.0-4.0); HEMATOCRIT 37.5 % (35.0-46.0); HEMOGLOBIN 12.3 GM/DL (11.6-15.3); LYMPH % 25.2 % (9.0-44.0); LYMPHOCYTE # 2.9 TH/MM3 (1.0-4.8); MEAN CELL VOLUME 91.3 FL (80.0-100.0); MEAN CORPUSCULAR HEMOGLOBIN 29.9 PG (27.0-34.0); MEAN CORPUSCULAR HGB CONC 32.7 % (32.0-36.0); MEAN PLATELET VOLUME 8.2 FL (7.0-11.0); MONO % 9.4 % (0.0-8.0); MONOCYTE # 1.1 TH/MM3 (0-0.9); NEUT % 63.9 % (16.0-70.0); PLATELET COUNT 298 TH/MM3 (150-450); RED BLOOD COUNT 4.11 MIL/MM3 (4.00-5.30); RED CELL DISTRIBUTION WIDTH 14.4 % (11.6-17.2); WHITE BLOOD COUNT 11.4 TH/MM3 (4.0-11.0)
[2017-12-14 13:00] LABS: ALBUMIN 3.3 GM/DL (3.4-5.0); ALT (GPT) 15 U/L (10-53); AST (GOT) 18 U/L (15-37); BICARBONATE 28.5 MEQ/L (21.0-32.0); BLOOD UREA NITROGEN 18 MG/DL (7-18); CALCIUM 8.5 MG/DL (8.5-10.1); CHLORIDE 107 MEQ/L (98-107); CREATININE 0.77 MG/DL (0.50-1.00); GLOMERULAR FILTRATION RATE 71 ML/MIN (>89); GLUCOSE,RANDOM 93 MG/DL (74-106); MAGNESIUM 2.1 MG/DL (1.5-2.5); SODIUM (NA) 142 MEQ/L (136-145)
[2017-12-14 13:05] LABS: ALKALINE PHOSPHATASE 82 U/L (45-117); TOTAL BILIRUBIN ADULT 0.3 MG/DL (0.2-1.0); TOTAL PROTEIN 6.8 GM/DL (6.4-8.2); TROPONIN I LESS THAN 0.02 NG/ML (0.02-0.05)
[2017-12-14 13:10] LABS: BACTERIA, URINE RARE /hpf; BILIRUBIN, URINE NEG (NEG); BLOOD, URINE NEG (NEG); GLUCOSE,URINE NEG (NEG); KETONE, URINE NEG (NEG); NITRITE,URINE NEG (NEG); SQUAMOUS EPITHELIAL CELL URINE <1 /hpf (0-5); URINE COLOR YELLOW (YELLW/STRAW); URINE LEUKOCYTE ESTERASE MOD (NEG)
--- NOTE | 2017-12-14 13:18 | RADRPT ---
EXAM DATE: 12/14/2017 1:14 PM EDT AGE/SEX: 87 years / Female INDICATIONS: Shortness of breath. CLINICAL DATA: This is the patient's initial encounter. Patient reports that signs and symptoms have been present for 1 day and indicates a pain score of 0/10. MEDICAL/SURGICAL HISTORY: Stroke. Hypertension. None. COMPARISON: [facility] – [place]ST SINGLE AP, 09/15/2017. . FINDINGS: Mild left lower lobe airspace disease. Cardiomediastinal contours are within normal limits. Bony thor ax is intact. CONCLUSION: 1. Mild left lower lobe airspace disease which likely reflects atelectasis. Developing pneumonia is in the differential diagnosis in the appropriate clinical setting. Electronically signed by: Gilberto Blackman MD 12/14/2017 1:17 PM EDT
--- NOTE | 2017-12-14 13:51 | PD ---
Physical Exam Date Seen by Provider: Dec 14, 2017 Data Data Last Documented VS Vital Signs Date Time Temp Pulse Resp B/P (MAP) Pulse Ox O2 Delivery O2 Flow Rate FiO2 12/14/17 12:36 99 Room Air 12/14/17 11:18 98.9 74 16 110/70 (83) Orders Orders Electrocardiogram (12/14/17 11:45) Ammonia (12/14/17 11:45) Complete Blood Count With Diff (12/14/17 11:45) Comprehensive Metabolic Panel (12/14/17 11:45) Creatine Kinase (Cpk) (12/14/17 11:45) Prothrombin Time / Inr (Pt) (12/14/17 11:45) Act Partial Throm Time (Ptt) (12/14/17 11:45) Troponin I (12/14/17 11:45) Urinalysis - C+S If Indicated (12/14/17 11:45) Lactic Acid Sepsis Protocol (12/14/17 11:45) Blood Culture (12/14/17 11:45) Chest, Single Ap (12/14/17 11:45) Ct Brain W/O Iv Contrast(Rout) (12/14/17 11:45) Blood Glucose (12/14/17 11:45) Ecg Monitoring (12/14/17 11:45) Iv Access Insert/Monitor (12/14/17 11:45) Cath For Specimen (12/14/17 11:45) Oximetry (12/14/17 11:45) Sodium Chloride 0.9% Flush (Ns Flush) (12/14/17 11:45) Magnesium (Mg) (12/14/17 11:45) Urine Culture (12/14/17 12:30) Labs Laboratory Tests Test 12/14/17 12:15 12/14/17 12:30 White Blood Count 11.4 TH/MM3 Red Blood Count 4.11 MIL/MM3 Hemoglobin 12.3 GM/DL Hematocrit 37.5 % Mean Corpuscular Volume 91.3 FL Mean Corpuscular Hemoglobin 29.9 PG Mean Corpuscular Hemoglobin Concent 32.7 % Red Cell Distribution Width 14.4 % Platelet Count 298 TH/MM3 Mean Platelet Volume 8.2 FL Neutrophils (%) (Auto) 63.9 % Lymphocytes (%) (Auto) 25.2 % Monocytes (%) (Auto) 9.4 % Eosinophils (%) (Auto) 1.2 % Basophils (%) (Auto) 0.3 % Neutrophils # (Auto) 7.3 TH/MM3 Lymphocytes # (Auto) 2.9 TH/MM3 Monocytes # (Auto) 1.1 TH/MM3 Eosinophils # (Auto) 0.1 TH/MM3 Basophils # (Auto) 0.0 TH/MM3 CBC Comment DIFF FINAL Differential Comment Prothrombin Time 10.0 SEC Prothromb Time International Ratio 1.0 RATIO Activated Partial Thromboplast Time 21.6 SEC Blood Urea Nitrogen 18 MG/DL Creatinine 0.77 MG/DL Random Glucose 93 MG/DL Total Protein 6.8 GM/DL Albumin 3.3 GM/DL Calcium Level 8.5 MG/DL Magnesium Level 2.1 MG/DL Alkaline Phosphatase 82 U/L Aspartate Amino Transf (AST/SGOT) 18 U/L Alanine Aminotransferase (ALT/SGPT) 15 U/L Total Bilirubin 0.3 MG/DL Sodium Level 142 MEQ/L Potassium Level 3.8 MEQ/L Chloride Level 107 MEQ/L Carbon Dioxide Level 28.5 MEQ/L Anion Gap 7 MEQ/L Estimat Glomerular Filtration Rate 71 ML/MIN Lactic Acid Level 1.3 mmol/L Ammonia 30 MCMOL/L Total Creatine Kinase 34 U/L Troponin I LESS THAN 0.02 NG/ML Urine Color YELLOW Urine Turbidity HAZY Urine pH 5.0 Urine Specific [place] 1.019 Urine Protein NEG mg/dL Urine Glucose (UA) NEG mg/dL Urine Ketones NEG mg/dL Urine Occult Blood NEG Urine Nitrite NEG Urine Bilirubin NEG Urine Urobilinogen LESS THAN 2 mg/dL Urine Leukocyte Esterase MOD Urine RBC 1 /hpf Urine WBC 11 /hpf Urine Squamous Epithelial Cells <1 /hpf Urine Bacteria RARE /hpf Microscopic Urinalysis Comment CATH-CULTURE IND MDM Medical Record Reviewed: Yes Supervised Visit with ARLENE: Yes Narrative Course I, Dr. Lovett, have reviewed the advance practice practitioner's documentation and am in agreement, met with the patient face to face, made the diagnosis, and the medical decision making was done by me. *My assessment and Findings: Patient is an 87-year-old female who was sent to the emergency room by a assisted-living facility for evaluation of possible CVA. As per patient's family was at bedside, patient has had history of CVA's in the past. Reports that today, she had an episode where her face was drooping, she has had left arm and left leg weakness. Reports that she was altered from baseline. Patient 's daughter reports that patient is back to her normal baseline, she is aphasic and does have right-sided residual deficits from her prior strokes, reports that her mom is decompensating and not acting like her normal self. CBC & BMP Diagram 12/14/17 12:15 Total Protein 6.8, Albumin 3.3 L, Calcium Level 8.5, Magnesium Level 2.1, Alkaline Phosphatase 82, Aspartate Amino Transf (AST/SGOT) 18, Alanine Aminotransferase (ALT/SGPT) 15, Total Bilirubin 0.[address] 12/14/17 1145 Signed Impressions: CONCLUSION: 1. Stable ventriculomegaly with remote infarct in the left parieto-occipital r egion, compared with August 2017. Chest X-Ray 12/14/17 1145 Signed Impressions: CONCLUSION: 1. Mild left lower lobe airspace disease which likely reflects atelectasis. De veloping pneumonia is in the differential diagnosis in the appropriate clinical setting. UA positive for 11 white blood cells, moderate leuk esterase, patient will be given a dose of IV Rocephin, culture was sent. Given her symptoms, patient with most likely diagnosis of TIA. Patient will be given aspirin, plan to admit her to the hospital for further workup. Patient's daughter at bedside, she is the power of sports attorney. Patient is a DNR, DNI CODE STATUS. Diagnosis Primary Impression: TIA (transient ischemic attack) Qualified Codes: G45.9 - Transient cerebral ischemic attack, unspecified Additional Impression: UTI (urinary tract infection) Qualified Codes: N30.00 - Acute cystitis without hematuria Admitting Information Admitting Physician Requests: Observation Madeline Lovett DO Dec 14, 2017 13:51
[2017-12-14] MEDS ORDERED: ASPIRIN 300 MG SUPP RECTAL ONE (14:00)
[2017-12-14] MEDS ORDERED: cefTRIAXone INJ 1,000 MG in SODIUM CHLORIDE 0.9% INJ 100 ML IV ONE (14:00)
--- NOTE | 2017-12-14 14:19 | PD ---
Physical Exam Date Seen by Provider: Dec 14, 2017 Time Seen by Provider: 14:17 Narrative 87-year-old female that presents to the ED for evaluation of altered mental status and possible TIA versus CVA. I was asked by Dara GUPTA to disposition patient pending labs and imaging. History is limited from the patient due to what appears to be baseline altered mental status. family at bedside and talked with my attending Dr Lovett who states that they noted left sided weakness and facial drop this am which is what prompted evaluation as well as confusion. Data Data Last Documented VS Vital Signs Date Time Temp Pulse Resp B/P (MAP) Pulse Ox O2 Delivery O2 Flow Rate FiO2 12/14/17 12:36 99 Room Air 12/14/17 11:18 98.9 74 16 110/70 (83) Orders Orders Electrocardiogram (12/14/17 11:45) Ammonia (12/14/17 11:45) Complete Blood Count With Diff (12/14/17 11:45) Comprehensive Metabolic Panel (12/14/17 11:45) Creatine Kinase (Cpk) (12/14/17 11:45) Prothrombin Time / Inr (Pt) (12/14/17 11:45) Act Partial Throm Time (Ptt) (12/14/17 11:45) Troponin I (12/14/17 11:45) Urinalysis - C+S If Indicated (12/14/17 11:45) Lactic Acid Sepsis Protocol (12/14/17 11:45) Blood Culture (12/14/17 11:45) Chest, Single Ap (12/14/17 11:45) Ct Brain W/O Iv Contrast(Rout) (12/14/17 11:45) Blood Glucose (12/14/17 11:45) Ecg Monitoring (12/14/17 11:45) Iv Access Insert/Monitor (12/14/17 11:45) Cath For Specimen (12/14/17 11:45) Oximetry (12/14/17 11:45) Sodium Chloride 0.9% Flush (Ns Flush) (12/14/17 11:45) Magnesium (Mg) (12/14/17 11:45) Urine Culture (12/14/17 12:30) Ceftriaxone Inj (Rocephin Inj) (12/14/17 14:00) Aspirin Supp (Aspirin Supp) (12/14/17 14:00) Admit Order (Ed Use Only) (12/14/17 14:12) Labs Laboratory Tests Test 12/14/17 12:15 12/14/17 12:30 White Blood Count 11.4 TH/MM3 Red Blood Count 4.11 MIL/MM3 Hemoglobin 12.3 GM/DL Hematocrit 37.5 % Mean Corpuscular Volume 91.3 FL Mean Corpuscular Hemoglobin 29.9 PG Mean Corpuscular Hemoglobin Concent 32.7 % Red Cell Distribution Width 14.4 % Platelet Count 298 TH/MM3 Mean Platelet Volume 8.2 FL Neutrophils (%) (Auto) 63.9 % Lymphocytes (%) (Auto) 25.2 % Monocytes (%) (Auto) 9.4 % Eosinophils (%) (Auto) 1.2 % Basophils (%) (Auto) 0.3 % Neutrophils # (Auto) 7.3 TH/MM3 Lymphocytes # (Auto) 2.9 TH/MM3 Monocytes # (Auto) 1.1 TH/MM3 Eosinophils # (Auto) 0.1 TH/MM3 Basophils # (Auto) 0.0 TH/MM3 CBC Comment DIFF FINAL Differential Comment Prothrombin Time 10.0 SEC Prothromb Time International Ratio 1.0 RATIO Activated Partial Thromboplast Time 21.6 SEC Blood Urea Nitrogen 18 MG/DL Creatinine 0.77 MG/DL Random Glucose 93 MG/DL Total Protein 6.8 GM/DL Albumin 3.3 GM/DL Calcium Level 8.5 MG/DL Magnesium Level 2.1 MG/DL Alkaline Phosphatase 82 U/L Aspartate Amino Transf (AST/SGOT) 18 U/L Alanine Aminotransferase (ALT/SGPT) 15 U/L Total Bilirubin 0.3 MG/DL Sodium Level 142 MEQ/L Potassium Level 3.8 MEQ/L Chloride Level 107 MEQ/L Carbon Dioxide Level 28.5 MEQ/L Anion Gap 7 MEQ/L Estimat Glomerular Filtration Rate 71 ML/MIN Lactic Acid Level 1.3 mmol/L Ammonia 30 MCMOL/L Total Creatine Kinase 34 U/L Troponin I LESS THAN 0.02 NG/ML Urine Color YELLOW Urine Turbidity HAZY Urine pH 5.0 Urine Specific [place] 1.019 Urine Protein NEG mg/dL Urine Glucose (UA) NEG mg/dL Urine Ketones NEG mg/dL Urine Occult Blood NEG Urine Nitrite NEG Urine Bilirubin NEG Urine Urobilinogen LESS THAN 2 mg/dL Urine Leukocyte Esterase MOD Urine RBC 1 /hpf Urine WBC 11 /hpf Urine Squamous Epithelial Cells <1 /hpf Urine Bacteria RARE /hpf Microscopic Urinalysis Comment CATH-CULTURE IND MDM Medical Record Reviewed: Yes Supervised Visit with ARLENE: No Interpretation(s) CBC & BMP Diagram 12/14/17 12:15 Total Protein 6.8, Albumin 3.3 L, Calcium Level 8.5, Magnesium Level 2.1, Alkaline Phosphatase 82, Aspartate Amino Transf (AST/SGOT) 18, Alanine Aminotransferase (ALT/SGPT) 15, Total Bilirubin 0.[address] 12/14/17 1145 Signed Impressions: CONCLUSION: 1. Stable ventriculomegaly with remote infarct in the left parieto-occipital r egion, compared with August 2017. Chest X-Ray 12/14/17 1145 Signed Impressions: CONCLUSION: 1. Mild left lower lobe airspace disease which likely reflects atelectasis. De veloping pneumonia is in the differential diagnosis in the appropriate clinical setting. UA shows leukerase esterase, WBCs. troponin and CKMB negative EKG shows sinus rhythm with no sign of acute ischemia or arrhythmia read by me and attending. Differential Diagnosis CVA versus TIA versus UTI versus pneumonia versus altered mental status Narrative Course 87-year-old female that presents to the ED for evaluation of altered mental status. Patient was properly examined by Dara GUPTA. Please refer to her note. My attending Dr Lovett evaluated the patient with me and was able to speak with the family who was able to give us more history. Apparently patient had some left-sided facial droop as well as left-sided weakness which is new for the patient. She chronically has right-sided weakness from a CVA. We were originally told that patient had a UTI and was treated with Cipro but apparently per family patient has not been treated for it. Patient apparently had a UA that was negative. Labs and imaging were started by Dara. Please refer to her note. Labs and imaging were essentially unremarkable other than what appears to be possible UTI versus pneumonia on the left side of the chest. Patient's left-sided weakness appear to have improved but hard to assess secondary to her altered mental status. Patient will need CVA workup and further evaluation of the possible infection. Patient was started ceftriaxone. Case discussed with the residents who agreed to admission to their service. Diagnosis Primary Impression: TIA (transient ischemic attack) Qualified Codes: G45.9 - Transient cerebral ischemic attack, unspecified Additional Impression: UTI (urinary tract infection) Qualified Codes: N30.00 - Acute cystitis without hematuria Admitting Information Admitting Physician Requests: Observation Emir Rai Dec 14, 2017 14:19
--- NOTE | 2017-12-14 14:28 | HHI.HP ---
HPI Service Family Medicine Primary Care Physician Unknown Admission Diagnosis acute altered mental status, new CVA r/o, UTI Diagnoses: International Travel<30 Days: No Contact w/Intl Traveler<30days: No Known Affected Area: No History of Present Illness Patient is an 87-year-old female with a history of CVA w/residual deficit, dementia w/behavioral features, and seizures who presents w/ altered mental status. Patient is unable to provide history due to severe dementia and altered mental status. Daughter and son-in-law are at bedside providing history. [facility] senior living was also contacted to provide history. Patient has a chronic right-sided weakness and aphasia that is residual from her stroke in 2010, has been on Plavix since then. Her first seizure was 1 year ago. After that, she developed another seizure a month ago. Since then she has been on Keppra. Per senior living report, patient was found to be significantly more lethargic this morning than her usual baseline. However, there was concern when she developed a left-sided weakness (worsened significantly arm droop), difficulty swallowing water, and left facial droop after the lethargy. Patient seemed blank as well, per daughter. She had a seizure 3 nights ago lasting 2 minutes. Since then, patient seemed to show increased tiredness, shortness of breath, and decreased strength in her arms per family report. jail noted decreased urination yesterday and the day before. Was diagnosed with UTI recently with urine culture growing enterococcus faecalis, started on Cipro yesterday. Has received 2 doses of a 3 day course so far. (Miguelina Segovia MD R1) Review of Systems ROS Limitations: Altered Mental Status (Patient is uncooperative to exam.), Unresponsive (Miguelina Segovia MD R1) Past Family Social History Past Medical History Hypertension CVA in 2010 followed by TIA 2 resulting in right-sided weakness and aphasia Hypothyroidism Seizures Dementia with behaviors Osteoporosis Hyperlipidemia Anxiety Past Surgical History No recent surgeries Reported Medications Reported Meds & Active Scripts Active Reported Ibuprofen 200 Mg Tab 400 Mg PO Q6H PRN Pro-Stat (Amino Acids-Protein Hydrolysat) 15 Gram-100 Kcal/30 Ml Liq 30 Ml PO BID Lexapro (Escitalopram Oxalate) 5 Mg Tab 5 Mg PO HS Lasix (Furosemide) 20 Mg Tab 20 Mg PO Q12HR Potassium Chloride ER (Potassium Chloride) 10 Meq Cap 10 Meq PO Q12HR Cipro (Ciprofloxacin HCl) 250 Mg Tab 250 Mg PO Q12HR 3 Days Lorazepam 1 Mg Tab 1 Mg PO Q12HR [place] (Hydrocodone-Acetaminophen) 5 Mg-325 Mg Tab 1 Tab PO Q6H PRN Nitroglycerin SL (Nitroglycerin) 0.4 Mg Subl 0.4 Mg SL DIRECTED PRN ONE TABLET UNDER THE TONGUE NEEDED FOR CHEST PAIN, MAY REPEAT EVERY FIVE MINUTES FOR A TOTAL OF 3 DOSES OR CALL 911 IF NO RELIEF Keppra (Levetiracetam) 500 Mg Tab 500 Mg BID Azo Cranberry (Cranberry-Vitamin C-Probiotic) 250-30 Mg Tab 1 Tab PO DAILY Uti-Stat Liq (Cranberry-Vitamin C-Inulin Liq) 1 Liq 30 Ml PO DAILY Omeprazole 20 Mg Tab 20 Mg PO DAILY Namenda (Memantine) 10 Mg Tab 10 Mg PO BID Seroquel (Quetiapine Fumarate) 25 Mg Tab 25 Mg PO BID Nifedipine ER 24 HR (Nifedipine) 30 Mg Tab 30 Mg PO HS Hold if SBP <100 or DBP <60 Lovastatin 10 Mg Tab 10 Mg PO HS Lactulose 10 Gm/15 Ml Solution 45 Gm PO TID 3 Days Stop date: 01/09/2017 Synthroid (Levothyroxine Sodium) 50 Mcg Tab 50 Mcg PO DAILY Aspirin Adult Low Strength (Aspirin) 81 Mg Tabdr 81 Mg PO DAILY Plavix (Clopidogrel Bisulfate) 75 Mg Tab 75 Mg PO DAILY (Miguelina Segovia MD R1) Allergies: Coded Allergies: No Known Allergies (Verified Adverse Reaction, Unknown, 08/13/17) Family History Mom: Dementia Dad: Diabetes Social History No alcohol, tobacco use, illicit recreational drugs Lives at [facility] Patient is able to walk but is unsteady on her feet and therefore is transported via wheelchair Has 3 daughters. One is , one is in [place], the other is POA by the name of Mera (Miguelina Segovia MD R1) Physical Exam Vital Signs Vital Signs Date Time Temp Pulse Resp B/P (MAP) Pulse Ox O2 Delivery O2 Flow Rate FiO2 12/14/17 12:36 99 Room Air 12/14/17 11:18 98.9 74 16 110/70 (83) 95 Physical Exam GENERAL: This is a thin elderly lady laying flat and quietly in bed with eyes closed. Does not respond to commands, appears confused, does not answer questions. Words are not discernible. SKIN: Cool and dry. HEAD: Atraumatic. Normocephalic. EYES: Pupils equal round and reactive. Extraocular motions intact. No scleral icterus. No injection or drainage. ENT: Airways patent. NECK: Trachea midline. CARDIOVASCULAR: Regular rate and rhythm without murmurs, gallops, or rubs. RESPIRATORY: Patient does not make good inspiratory effort; however, no crackles are heard. GASTROINTESTINAL: Abdomen soft, non-tender, nondistended. No guarding. MUSCULOSKELETAL: Extremities without clubbing, cyanosis, or edema. NEUROLOGICAL: Opens eyes with repetitive verbal and tactile stimulation. Makes eye contact. Does not seem to know where she is. Is not understandable but once in a while states yes or no to questions. Is not able to respond to commands. No facial droop noted. Laboratory Laboratory Tests Test 12/14/17 12:15 12/14/17 12:30 White Blood Count 11.4 Red Blood Count 4.11 Hemoglobin 12.3 Hematocrit 37.5 Mean Corpuscular Volume 91.3 Mean Corpuscular Hemoglobin 29.9 Mean Corpuscular Hemoglobin Concent 32.7 Red Cell Distribution Width 14.4 Platelet Count 298 Mean Platelet Volume 8.2 Neutrophils (%) (Auto) 63.9 Lymphocytes (%) (Auto) 25.2 Monocytes (%) (Auto) 9.4 Eosinophils (%) (Auto) 1.2 Basophils (%) (Auto) 0.3 Neutrophils # (Auto) 7.3 Lymphocytes # (Auto) 2.9 Monocytes # (Auto) 1.1 Eosinophils # (Auto) 0.1 Basophils # (Auto) 0.0 CBC Comment DIFF FINAL Differential Comment Prothrombin Time 10.0 Prothromb Time International Ratio 1.0 Activated Partial Thromboplast Time 21.6 Blood Urea Nitrogen 18 Creatinine 0.77 Random Glucose 93 Total Protein 6.8 Albumin 3.3 Calcium Level 8.5 Magnesium Level 2.1 Alkaline Phosphatase 82 Aspartate Amino Transf (AST/SGOT) 18 Alanine Aminotransferase (ALT/SGPT) 15 Total Bilirubin 0.3 Sodium Level 142 Potassium Level 3.8 Chloride Level 107 Carbon Dioxide Level 28.5 Anion Gap 7 Estimat Glomerular Filtration Rate 71 Lactic Acid Level 1.3 Ammonia 30 Total Creatine Kinase 34 Troponin I LESS THAN 0.02 Urine Color YELLOW Urine Turbidity HAZY Urine pH 5.0 Urine Specific [place] 1.019 Urine Protein NEG Urine Glucose (UA) NEG Urine Ketones NEG Urine Occult Blood NEG Urine Nitrite NEG Urine Bilirubin NEG Urine Urobilinogen LESS THAN 2 Urine Leukocyte Esterase MOD Urine RBC 1 Urine WBC 11 Urine Squamous Epithelial Cells <1 Urine Bacteria RARE Microscopic Urinalysis Comment CATH-CULTURE IND Date/Time Source Procedure Growth Status 12/14/17 12:20 Blood Peripheral Aerobic Blood Culture Pending Received 12/14/17 12:20 Blood Peripheral Anaerobic Blood Culture Pending Received 12/14/17 12:30 Urine Catheterized Urine Urine Culture Pending Received (Miguelina Segovia MD R1) Result Diagram: 12/14/17 1215 12/14/17 1215 Imaging Last Impressions Head CT 12/14/17 1145 Signed Impressions: CONCLUSION: 1. Stable ventriculomegaly with remote infarct in the left parieto-occipital r egion, compared with August 2017. Chest X-Ray 12/14/17 1145 Signed Impressions: CONCLUSION: 1. Mild left lower lobe airspace disease which likely reflects atelectasis. De veloping pneumonia is in the differential diagnosis in the appropriate clinical setting. (Miguelina Segovia MD R1) Caprini VTE Risk Assessment Caprini VTE Risk Assessment: Mod/High Risk (score >= 2) (Miguelina Segovia MD R1) Assessment and Plan Assessment and Plan She is an 87-year-old female with a history of CVA with residual deficit, dementia with behavioral features, and recent history of seizures admitted for altered mental status and stroke rule out. Differential: Stroke versus UTI/ other infection versus seizures versus new medication. Patient had daily Plavix this AM. Given 300 mg aspirin suppository in the ED. MRI, MRA, carotid ultrasound ordered along with neurology consult, head of bed flat for 12 hours with permissive hypertension. Swallow assessment ordered. Will also order ACS rule out, placed on cardiac telemetry. Keppra level and EEG ordered to assess for seizures. 3 day course of ciprofloxacin for enterococcus facialis resume. Code Status DNR Discussed Condition With Dr. Can and ED PA Dr. Rai (Miguelina Segovia MD R1) Attending Attestation THIS CASE WAS DISCUSSED WITH THE RESIDENT PHYSICIANS. I HAVE REVIEWED THE RECORD AND AGREE WITH THE ABOVE NOTE AND PLAN OF CARE WAS DISCUSSED. I HAVE AUTHORIZED THE ORDER FOR ADMISSION TO AN IN-PATIENT STATUS. (Shailesh Persaud MD) Problem List: (1) Acute encephalopathy ICD Codes: G93.40 - Encephalopathy, unspecified Status: Acute Plan: White count slightly elevated, no left shift Recent seizures while on Keppra Hx of CVA and TIA Continue treatment for UTI with ciprofloxacin 250 mg twice daily for total of 3 days. Has already had 1 day. Follow-up urine cultures Patient took medications this morning, will adjust home medications for later today Continue Plavix Trend EKGs and cardiac enzymes every 6 hours Cardiac telemetry Consult neurology Order echo, MRI and MRA of the brain, ultrasound of the carotids Lipid profile and A1c, TSH Consult PT and Case management Lovenox and SCDs Continue Keppra. Order Keppra level Fall precautions Lay flat for 12 hours with permissive hypertension. Vasotec as needed for blood pressure greater than 220/120. Adjust tomorrow. EEG (2) UTI (urinary tract infection) ICD Codes: N39.0 - Urinary tract infection, site not specified Status: Acute Plan: Resume ciprofloxacin 250 twice daily for total course of 3 days. Is on day 2 Follow-up urine culture (3) Hypothyroid ICD Codes: E03.9 - Hypothyroidism, unspecified Status: Acute Plan: Continue home levothyroxine (4) Hypertension ICD Codes: I10 - Essential (primary) hypertension Status: Acute Plan: Hold home nifedipine 30 mg p.o. at bedtime to allow for permissive hypertension Vasotec take as needed for blood pressure greater than 220/120 (5) Hyperlipidemia ICD Codes: E78.5 - Hyperlipidemia, unspecified Status: Acute Plan: Continue statin (6) Anxiety ICD Codes: F41.9 - Anxiety disorder, unspecified Status: Acute Plan: Lorazepam as needed (7) Dementia ICD Codes: F03.90 - Unspecified dementia without behavioral disturbance Status: Acute Plan: Continue home memantine 10 mg twice daily, Seroquel 25 mg p.o. daily (8) History of CVA with residual deficit ICD Codes: I69.30 - Unspecified sequelae of cerebral infarction Status: Acute Plan: Continue Plavix 75 mg p.o. daily (9) Hx of seizure disorder ICD Codes: Z86.69 - Personal history of other diseases of the nervous system and sense organs Plan: Continue home Keppra 500 mg p.o. twice daily (10) FEN Plan: Fluids: P.o. Electrolytes: As needed Nutrition: Regular diet after passing bedside swallow DVT prophylaxis: SCDs and Lovenox (Miguelina Segovia MD R1) Physician Certification 2 Midnight Certification Type: Admission for Inpatient Services Order for Inpatient Services The services are ordered in accordance with Medicare regulations or non- Medicare payer requirements, as applicable. In the case of services not specified as inpatient-only, they are appropriately provided as inpatient services in accordance with the 2-midnight benchmark. Estimated LOS (days): 2 2 days is the estimated time the patient will need to remain in the hospital, assuming treatment plan goals are met and no additional complications. Post-Hospital Plan: SNF (Miguelina Segovia MD R1) Problem Qualifiers (1) UTI (urinary tract infection): Qualified Codes: N30.00 - Acute cystitis without hematuria (2) Hypothyroid: Qualified Codes: E03.9 - Hypothyroidism, unspecified (3) Hypertension: Qualified Codes: I15.2 - Hypertension secondary to endocrine disorders (4) Hyperlipidemia: Qualified Codes: E78.5 - Hyperlipidemia, unspecified Miguelina Segovia MD R1 Dec 14, 2017 14:27 Shailesh Persaud MD Dec 15, 2017 17:09
[2017-12-14] MEDS ORDERED: ENOXAPARIN SODIUM 40 MG/0.4 ML SYRINGE SQ SCH (15:15)
[2017-12-14] MEDS ORDERED: CLOPIDOGREL 75 MG TAB PO SCH (15:15)
[2017-12-14] MEDS ORDERED: GLUCAGON 1 MG/ML VIAL OTHER PRN (15:15)
[2017-12-14] MEDS ORDERED: DEXTROSE 50% IN WATER 50 ML VIAL(D50) IV PUSH PRN (15:15)
[2017-12-14] MEDS ORDERED: ENALAPRILAT 1.25 MG/ML VIAL IV PUSH PRN (15:15)
[2017-12-14] MEDS ORDERED: LORazepam 0.5 MG TAB PO PRN (15:30)
[2017-12-14] MEDS ORDERED: AMINLIQ7 PO (16:05)
[2017-12-14] MEDS ORDERED: IBUP200T47 PO (16:05)
[2017-12-14] MEDS ORDERED: FURO1TAB62 PO (16:05)
[2017-12-14] MEDS ORDERED: CIPR250T52 PO (16:05)
[2017-12-14] MEDS ORDERED: LORA1TAB12 PO (16:05)
[2017-12-14] MEDS ORDERED: POTA10CA PO (16:05)
[2017-12-14] MEDS ORDERED: LEXA5TAB PO (16:05)
[2017-12-14] MEDS: INSULIN ASPART SUPPLEMENTAL SCALE SQ SCH ×2 (17:00→21:00)
[2017-12-14] MEDS: SODIUM CHLOR 0.9% 1000 ML INJ 1,000 ML IV SCH (18:27)
--- NOTE | 2017-12-14 18:32 | ECHRPT ---
Indication: CVA/TIA CONCLUSIONS The left ventricular systolic function is normal with an estimated ejection fraction in the range of 60-65%. Normal left ventricular size. Wall thickness is normal. No regional wall motion abnormalities are present. Trace mitral valve regurgitation. BP: / HR: Rhythm: MEASUREMENTS (Male / Female) Normal Values Technical Quality: 2D ECHO LV Diastolic Diameter PLAX 3.1 cm 4.2 - 5.9 / 3.9 - 5.3 cm LV Systolic Diameter PLAX 2.2 cm IVS Diastolic Thickness 1.0 cm 0.6 - 1.0 / 0.6 - 0.9 cm LVPW Diastolic Thickness 1.0 cm 0.6 - 1.0 / 0.6 - 0.9 cm LV Relative Wall Thickness 0.7 RV Internal Dim ED PLAX 2.4 cm LVOT Diameter 1.7 cm LA Systolic Diameter LX 3.5 cm 3.0 - 4.0 / 2.7 - 3.8 cm LV Ejection Fraction MOD 4C 67.3 % LV Ejection Fraction 4C AL 68.9 % M-MODE Aortic Root Diameter MM 1.7 cm LA Systolic Diameter MM 3.5 cm LA Ao Ratio MM 2.1 AV Cusp Separation MM 1.8 cm DOPPLER AV Peak Velocity 119.0 cm/s AV Peak Gradient 5.7 mmHg LVOT Peak Velocity 92.3 cm/s LVOT Peak Gradient 3.4 mmHg AV Area Cont Eq pk 1.8 cm MV Area PHT 3.0 cm Mitral E Point Velocity 73.1 cm/s Mitral A Point Velocity 101.0 cm/s Mitral E to A Ratio 0.7 LV E' Lateral Velocity 8.2 cm/s Mitral E to LV E' Lateral Ratio 8.9 LV E' Septal Velocity 6.5 cm/s Mitral E to LV E' Septal Ratio 11.2 PV Peak Velocity 89.6 cm/s PV Peak Gradient 3.2 mmHg FINDINGS LEFT VENTRICLE The left ventricular systolic function is normal with an estimated ejection fraction in the range of 60-65%. Normal left ventricular size. Wall thickness is normal. No regional wall motion abnormalities are present. MITRAL VALVE Structurally normal mitral valve. Trace mitral valve regurgitation. Sami Maldonado MD, FACC (Electronically Signed) Final Date:14 December 2017 18:30
[2017-12-14] MEDS: ENOXAPARIN SODIUM 40 MG/0.4 ML SYRINGE SQ SCH (18:46)
--- NOTE | 2017-12-14 20:36 | RADRPT ---
EXAM DATE: 12/14/2017 8:32 PM EDT AGE/SEX: 87 years / Female INDICATIONS: Altered mental status. CVA. CLINICAL DATA: This is the patient's initial encounter. Patient reports that signs and symptoms have been present for 1 day and indicates a pain score of 0/10. MEDICAL/SURGICAL HISTORY: Hypertension. None. COMPARISON: [facility] [place], MRI BRAIN W/O CONTRAST, 12/14/2017. . TECHNIQUE: 3D [id number] MRA was performed. Source images, multiplanar STS MIP, and 3D volum e MIP reconstructions were reviewed. FINDINGS: The distal internal carotids are widely patent. There is some irregularity of the proximal MCA on the left. The left MCA does appear somewhat smaller in size in the right. There is colpocephalic dilatio n of the posterior horn of the left lateral ventricle suggesting old infarct in this area. The right MCA appears widely patent. The anterior cerebral circulation is widely patent. Both vertebral arteries are patent. The basilar is patent. The posterior cerebral is patent. CONCLUSION: 1. The left MCA is somewhat smaller in size in the right. The patient does have an old infarct on th e left side which likely accounts for this finding. There is some irregularity within the proximal MC A circulation bilaterally suggesting intracranial atherosclerotic disease though at least a portion o f this may be secondary to motion artifact. If there is a strong desire for further assessment CT ang iography could be performed. Electronically signed by: Chito Concepcion MD 12/14/2017 8:35 PM EDT
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
[2017-12-14 20:46] LABS: TROPONIN I LESS THAN 0.02 NG/ML (0.02-0.05)
[2017-12-14] MEDS ORDERED: MEMANTINE HCL 10 MG TAB PO SCH (21:00)
[2017-12-14] MEDS ORDERED: QUEtiapine FUMARATE 25 MG TAB PO SCH (21:00)
[2017-12-14] MEDS ORDERED: levETIRAcetam 500 MG TAB PO SCH (21:00)
[2017-12-14] MEDS: SODIUM CHLORIDE 0.9% FLUSH 10 ML FLUSH IV FLUSH SCH (21:00)
[2017-12-14] MEDS ORDERED: NIFEdipine 30 MG SUSTAINED RELEASE TAB PO SCH (21:00)
[2017-12-14] MEDS ORDERED: CIPROFLOXACIN 250 MG TAB PO SCH (21:00)
[2017-12-14] MEDS ORDERED: PRAVASTATIN SOD 10 MG TAB PO SCH (21:00)
[2017-12-14] MEDS: levETIRAcetam INJ 500 MG in SODIUM CHLORIDE 0.9% INJ 100 ML IV SCH (22:21)
[2017-12-14] MEDS: CIPROFLOXACIN 200 MG PREMIX 100 ML IV SCH (22:34)
--- NOTE | 2017-12-14 23:03 | RADRPT ---
EXAM DATE: 12/14/2017 10:47 PM EDT AGE/SEX: 87 years / Female INDICATIONS: Cerebrovascular accident. CLINICAL DATA: This is the patient's subsequent encounter. Patient reports that signs and symptoms h ave been present for 1 day and indicates a pain score of 0/10. MEDICAL/SURGICAL HISTORY: Hypothyroidism. Stroke. Hypercholesterolemia. Dementia. Seizures. Anticoagulant therapy. Depression. Anemia. Hypertension. None. COMPARISON: No prior exams available for comparison. VELOCITY PARAMETERS: ICA/CCA Ratio: Right 1.2 , Left 1.0 ICA: Right 72.4 cm/sec, Left 58.4 cm/sec CCA: Right 61.4 cm/sec, Left 60.3 cm/sec ECA: Right 92.2 cm/sec, Left 74.6 cm/sec Vertebral: Right 68.6 cm/sec antegrade, Left 61.0 cm/sec antegrade FINDINGS: Right Carotid: No significant plaque is visualized.The waveforms are within normal limits. Left Carotid: No significant plaque is visualized. The waveforms are within normal limits. Other: None. CONCLUSION: Negative carotid ultrasound examination. Electronically signed by: Oscar Jarvis MD 12/14/2017 11:02 PM EDT
[2017-12-14] MEDS ORDERED: LORazepam 2 MG/ML VIAL IV PUSH PRN (23:45)
[2017-12-15] VITALS: BP 144/75; PULSE 58; RESP 16; TEMP 98.8; O2SAT 95
--- NOTE | 2017-12-15 01:26 | MB ---
cc: Elgin Head MD, PhD DATE: 12/14/2017 REASON FOR CONSULTATION: Mental status change. HISTORY OF PRESENT ILLNESS: Ms. Odom is an 87-year-old female who has a history of previous stroke with right-sided weakness as well as vascular dementia. Daughter states that she has been getting progressively worse, less communicative, less ability to ambulate. She cannot feed herself. She is a half-way resident. She, today at the half-way, had alteration in mental status and became much more lethargic. They thought she had a left facial droop but did not have weakness of the left arm. She has been lethargic since. PAST MEDICAL HISTORY: History of stroke in 2010 with several TIAs thereafter, with residual aphasia and right-sided weakness; hypothyroidism, seizures, dementia, osteoporosis, hyperlipidemia. MEDICATIONS: 1. Ibuprofen. 2. Prostat. 3. Lexapro. 4. Lasix. 5. Potassium chloride. 6. Cipro. 7. Lorazepam. 8. [place]. 9. Nitroglycerin. 10. Keppra for history of seizures. 11. Omeprazole. 12. Namenda. 13. Seroquel 25 mg b.i.d. 14. Nifedipine. 16. Lovastatin. 17. Lactulose. 18. Synthroid. 19. Aspirin 81 mg daily. 20. Plavix 75 mg daily. ALLERGIES: NO KNOWN ALLERGIES. PHYSICAL EXAMINATION. VITAL SIGNS: Blood pressure is 147/68, pulse is 58, respiratory rate is 16, temperature 97.9 degrees. HIGHER CORTICAL FUNCTION: She is very lethargic, does not follow commands. CRANIAL NERVES: At this time, no gross facial asymmetry. MOTOR: Generalized weakness. IMAGING: MRI of the brain shows an old infarct, left posterior parietal cortex and occipital cortex with dilation of the posterior horn of the left lateral ventricle. Microvascular ischemic demyelination is present. MRA of the brain: Left MCA smaller in size than the right. There is an old infarct on the left side. CT brain: Stable ventriculomegaly with remote infarct, left parieto-occipital area. LABORATORY DATA: The white count is 11,400, hemoglobin 12.3, hematocrit 37.5%, platelet count 298,000. The PT is 10, INR 1, aPTT 21.6. Sodium is 142, potassium 3.8, chloride 107, CO2 of 28.5. The BUN is 18, creatinine 0.77, GFR 71, glucose 93, calcium 8.5. Ammonia 30. Urinalysis: The pH is 5, specific gravity 1.019; 11 wbc's, moderate leukocyte esterase. IMPRESSION: There is no evidence of acute stroke on the MRI of the brain. It is possible that she might have a transient ischemic attack. However, there may be a urinary tract infection with a metabolic encephalopathy. RECOMMENDATION: We will obtain an echocardiogram and carotid ultrasound. Continue Plavix and aspirin for now. Follow up urine cultures. Elgin Head MD, PhD [place] , 09:51 PM , 01:24 AM
[2017-12-15 02:10] LABS: AUTOMATED NEUTROPHIL # 5.9 TH/MM3 (1.8-7.7); BASOPHIL # 0.1 TH/MM3 (0-0.2); BASOPHIL % 0.6 % (0.0-2.0); EOSINOPHIL # 0.2 TH/MM3 (0-0.4); EOSINOPHIL % 1.7 % (0.0-4.0); HEMATOCRIT 37.1 % (35.0-46.0); LYMPH % 26.9 % (9.0-44.0); LYMPHOCYTE # 2.6 TH/MM3 (1.0-4.8); MEAN CORPUSCULAR HEMOGLOBIN 29.8 PG (27.0-34.0); MEAN CORPUSCULAR HGB CONC 32.4 % (32.0-36.0); MEAN PLATELET VOLUME 8.4 FL (7.0-11.0); MONO % 10.6 % (0.0-8.0); NEUT % 60.2 % (16.0-70.0); PLATELET COUNT 305 TH/MM3 (150-450); RED BLOOD COUNT 4.03 MIL/MM3 (4.00-5.30); RED CELL DISTRIBUTION WIDTH 13.9 % (11.6-17.2); WHITE BLOOD COUNT 9.7 TH/MM3 (4.0-11.0)
[2017-12-15 02:23] LABS: PROTHROMBIN TIME - PATIENT 10.4 SEC (9.8-11.6)
[2017-12-15 02:26] LABS: ALT (GPT) 12 U/L (10-53); AST (GOT) 14 U/L (15-37); BICARBONATE 28.2 MEQ/L (21.0-32.0); BLOOD UREA NITROGEN 14 MG/DL (7-18); CALCIUM 8.4 MG/DL (8.5-10.1); CHLORIDE 108 MEQ/L (98-107); CHOLESTEROL 197 MG/DL (120-200); CREATININE 0.59 MG/DL (0.50-1.00); GLOMERULAR FILTRATION RATE 97 ML/MIN (>89); GLUCOSE,RANDOM 90 MG/DL (74-106); SODIUM (NA) 144 MEQ/L (136-145); TRIGLYCERIDES 209 MG/DL (42-150)
[2017-12-15 02:30] LABS: ALKALINE PHOSPHATASE 79 U/L (45-117); CHOLESTEROL/ HDL RATIO 3.92 RATIO; HDL CHOLESTEROL 50.2 MG/DL (40.0-60.0); LDL CHOLESTEROL 105 MG/DL (0-99); TOTAL BILIRUBIN ADULT 0.3 MG/DL (0.2-1.0); TROPONIN I LESS THAN 0.02 NG/ML (0.02-0.05)
[2017-12-15 04:00] VITALS: BP 177/75; PULSE 64; RESP 16; TEMP 97.9; O2SAT 92
[2017-12-15] MEDS: SODIUM CHLOR 0.9% 1000 ML INJ 1,000 ML IV SCH ×2 (05:59→12:57)
[2017-12-15] MEDS ORDERED: LEVOTHYROXINE SODIUM 50 MCG TAB PO SCH (06:00)
[2017-12-15] MEDS ORDERED: LEVOTHYROXINE SODIUM 100 MCG VIAL IV PUSH SCH (06:00)
[2017-12-15 08:00] VITALS: BP 175/80; PULSE 70; RESP 18; TEMP 97.3; O2SAT 99
[2017-12-15] MEDS: INSULIN ASPART SUPPLEMENTAL SCALE SQ SCH ×3 (08:00→16:28)
[2017-12-15] MEDS: SODIUM CHLORIDE 0.9% FLUSH 10 ML FLUSH IV FLUSH SCH (08:10)
[2017-12-15] MEDS: levETIRAcetam INJ 500 MG in SODIUM CHLORIDE 0.9% INJ 100 ML IV SCH (08:10)
[2017-12-15] MEDS: CIPROFLOXACIN 200 MG PREMIX 100 ML IV SCH (08:58)
[2017-12-15] MEDS ORDERED: ASPIRIN 300 MG SUPP RECTAL SCH (09:00)
[2017-12-15] MEDS ORDERED: PANTOPRAZOLE SOD 20 MG DELAYED RELEASE TAB PO SCH (09:00)
[2017-12-15] MEDS ORDERED: PANTOPRAZOLE SODIUM 40 MG VIAL IV PUSH SCH (09:00)
[2017-12-15] MEDS ORDERED: CLOPIDOGREL 75 MG TAB PO SCH (09:00)
[2017-12-15 09:56] VITALS: PULSE 88
[2017-12-15 12:42] LABS: TROPONIN I LESS THAN 0.02 NG/ML (0.02-0.05)
[2017-12-15 14:22] VITALS: PULSE 62
[2017-12-15 14:36] LABS: HEMOGLOBIN A1C 5.3 % (4.3-6.0)
--- NOTE | 2017-12-15 15:36 | HHI.FPPN ---
Subjective Remarks Daughter is at bedside. States the patient seems a lot better today, is more awake and alert. Has had several episodes of acute encephalopathy that I brought her to the hospital and that it resolved similarly. Daughter states the patient seems somewhat confused/distress of being in a new location, would like to have patient sent to shelter today for her own comfort. Patient does not have any concerns/complaints. Blood pressure 144/75-177/80. Failed bedside swallow eval initially. Speech therapy was consulted, and patient passed swallow evaluation. Medications overnight were initially converted to IV. (Miguelina Segovia MD R1) Objective Vitals Vital Signs Date Time Temp Pulse Resp B/P (MAP) Pulse Ox O2 Delivery O2 Flow Rate FiO2 12/15/17 14:22 62 12/15/17 09:56 88 12/15/17 08:00 97.3 70 18 175/80 (111) 99 12/15/17 04:00 97.9 64 16 177/75 (109) 92 12/15/17 00:00 98.8 58 16 144/75 (98) 95 12/14/17 20:00 97.9 58 16 147/68 (94) 95 12/14/17 18:27 97.3 65 16 139/78 (98) 95 12/14/17 18:12 12/14/17 16:30 63 18 157/70 (99) 95 Room Air 12/14/17 15:22 95 21 I/O 12/14/17 12/14/17 12/14/17 12/15/17 12/15/17 12/15/17 06:59 14:59 22:59 06:59 14:59 22:59 Intake Total 105 ml Balance 105 ml Intake IV Total 105 ml # Voids 6 1 # Bowel Movements 1 1 (Miguelina Segovia MD R1) Result Diagram: 12/15/17 0145 12/15/17 0145 Objective Remarks O. CONSTITUTIONAL/GEN: Elderly woman sitting up in bed, looking comfortable and alert. Speaks but is not readily understandable. Not respond to questions or commands. Daughter seems to understand her. EYES: conjunctiva normal, PERRLA, EOMI. ENT: Mouth and pharynx normal. NECK: thyroid midline. LUNGS: clear A-P, respiratory effort is normal. CARDIOVASCULAR: RR without murmur or gallop. No significant edema. GI/ABD: soft without masses, without organomegaly. : no CVA tenderness NEURO: No focal deficits/left arm weakness/facial droop. Neck is supple, normal range of motion. SKIN: color normal, no rashes noted. MUSC: Normal range of motion. Resistance to passive flexion, likely due to patient's lack of understanding/severe dementia. Chronic right-sided residual changes from previous stroke. Right arm is clenched towards the body. Patient is resistant to having it pulled from her, daughter states this is painful. PSYCH/MENTAL STATUS: Appears confused, severe dementia. (Miguelina Segovia MD R1) A/P Assessment and Plan She is an 87-year-old female with a history of CVA with residual deficit, dementia with behavioral features, and recent history of seizures admitted for altered mental status and stroke rule out. CVA and ACS ruled out. EEG Results and Keppra levels pending. No new seizure activity. Spoke with Dr. Head over the phone today, plans to follow-up EEG results w/ patient in office. Plan for 2 week follow-up. Discharge Planning Discharge today (Miguelina Segovia MD R1) Attending Attestation Patient seen and examined. Case reviewed and discussed with the resident team. Agree with plan of care as discussed with me and documented in the resident note. (Shailesh Persaud MD) Problem List: (1) Acute encephalopathy ICD Codes: G93.40 - Encephalopathy, unspecified Status: Acute Plan: ACS ruled out, CVA ruled out -imaging non-acute Second EKG shows sinus arrhythmia Continue treatment for UTI with ciprofloxacin 250 mg twice daily for total of 3 days Continue Plavix and baby aspirin Continue cardiac telemetry monitoring Consult neurology : Appreciate Recs Lovenox and SCDs Continue Keppra, Keppra level pending EEG results pending, f/u w/neuro outpatient (2) UTI (urinary tract infection) ICD Codes: N39.0 - Urinary tract infection, site not specified Status: Acute Plan: Resume ciprofloxacin 250 twice daily for total course of 3 days. Is on day 3, last dose tomorrow morning. Follow-up urine culture (3) Hypothyroid ICD Codes: E03.9 - Hypothyroidism, unspecified Status: Acute Plan: Continue home levothyroxine (4) Hypertension ICD Codes: I10 - Essential (primary) hypertension Status: Acute Plan: Continue home nifedipine 30 mg p.o. at bedtime Vasotec take as needed for blood pressure greater than 180/100 (5) Hyperlipidemia ICD Codes: E78.5 - Hyperlipidemia, unspecified Status: Acute Plan: Continue statin (6) Anxiety ICD Codes: F41.9 - Anxiety disorder, unspecified Status: Acute Plan: Lorazepam as needed (7) Dementia ICD Codes: F03.90 - Unspecified dementia without behavioral disturbance Status: Acute Plan: Continue home memantine 10 mg twice daily, Seroquel 25 mg p.o. daily (8) History of CVA with residual deficit ICD Codes: I69.30 - Unspecified sequelae of cerebral infarction Status: Acute Plan: Continue Plavix 75 mg p.o. daily (9) Hx of seizure disorder ICD Codes: Z86.69 - Personal history of other diseases of the nervous system and sense organs Plan: Continue home Keppra 500 mg p.o. twice daily (Miguelina Segovia MD R1) Problem Qualifiers (1) UTI (urinary tract infection): Qualified Codes: N30.00 - Acute cystitis without hematuria (2) Hypothyroid: Qualified Codes: E03.9 - Hypothyroidism, unspecified (3) Hypertension: Qualified Codes: I15.2 - Hypertension secondary to endocrine disorders (4) Hyperlipidemia: Qualified Codes: E78.5 - Hyperlipidemia, unspecified Miguelina Segovia MD R1 Dec 15, 2017 15:36 Shailesh Persaud MD Dec 15, 2017 17:13
[2017-12-15] MEDS ORDERED: CIPR250T52 PO (15:40)
--- NOTE | 2017-12-15 15:40 | HHI.DCPOC ---
Discharge Care Plan Diagnosis: (1) Acute encephalopathy Additional Problems Presentation may be secondary to refractory seizure versus new medication ( ciprofloxacin) versus TIA. Continue taking ciprofloxacin for 2 more doses to finish course. Follow up w/ neurology in 2 weeks. Goals to Promote Your Health * To prevent worsening of your condition and complications * To maintain your health at the optimal level Directions to Meet Your Goals Take your medications as prescribed Follow your dietary instruction Follow activity as directed Keep your appointments as scheduled Take your immunizations and boosters as scheduled If your symptoms worsen call your PCP, if no PCP go to Urgent Care Center or Emergency Room Smoking is Dangerous to Your Health. Avoid second hand smoke Call the 24-hour hour crisis hotline for domestic abuse at Miguelina Segovia MD R1 Dec 15, 2017 15:40
[2017-12-15] MEDS: ENOXAPARIN SODIUM 40 MG/0.4 ML SYRINGE SQ SCH (17:06)
--- NOTE | 2017-12-15 17:58 | MG ---
cc: Mao Lang MD EEG NUMBER: [id number] INDICATIONS: Hyperventilation not performed. Ventriculomegaly, old left-sided stroke, 87 years old, UTI, dementia. On Plavix and Keppra. DESCRIPTION: A 9 Hz, 50 microvolt symmetric posterior rhythm is seen. Recording overall is synchronous and symmetric. I do not see any epileptiform or seizure activity. Hyperventilation is not performed. Photic stimulation is performed without significant posterior driving. IMPRESSION: A normal electroencephalogram. No evidence for focal or diffuse abnormality. MD CHARITO Sol/CHRISTIANO , 05:46 PM , 05:57 PM
--- NOTE | 2017-12-15 20:37 | EKG ---
Date Performed: 12/15/2017 Time Performed: 00:00:28 PTAGE: 87 years EKG: Sinus arrhythmia Prolonged QT interval Lateral T wave changes are nonspecific Generalized l ow QRS voltages Abnormal ECG PREVIOUS TRACING : 12/14/2017 19.46 Since the previous tracing, no significant change noted DOCTOR: Sami Maldonado Interpretating Date/Time 12/15/2017 20:36:07
--- NOTE | 2017-12-15 20:52 | EKG ---
Date Performed: 12/14/2017 Time Performed: 19:46:38 PTAGE: 87 years EKG: SINUS BRADYCARDIA WITH MARKED SINUS ARRHYTHMIA LOW QRS VOLTAGE IN PRECORDIAL LEADS BORDERLI NE ECG PREVIOUS TRACING : 12/14/2017 13.18 Compared to previous tracing, rate slower DOCTOR: Sami Maldonado Interpretating Date/Time 12/15/2017 20:52:20
--- NOTE | 2017-12-15 21:41 | EKG ---
Date Performed: 12/14/2017 Time Performed: 13:18:12 PTAGE: 87 years EKG: Sinus rhythm NORMAL ECG PREVIOUS TRACING : 09/15/2017 19.08 Since the previous tracing, no significant change noted DOCTOR: Sami Maldonado Interpretating Date/Time 12/15/2017 21:39:18
[2017-12-16] MEDS ORDERED: ASPIRIN 81 MG CHEW TAB CHEW SCH (09:00)
== END 2017-12-15 18:43 | DRG 71 ==
LOC: NEPC 11:15 → NEDA 14:17 → OBSVTOIN 14:17 → N05A 18:16
PROVIDERS: ADMIT Family Medicine; ATTEND Family Medicine
DX: G93.41 Metabolic encephalopathy (principal); I69.351 Hemiplegia and hemiparesis following cerebral infarction affecting right dominant side; G30.9 Alzheimer's disease, unspecified; F02.81 Dementia in other diseases classified elsewhere, unspecified severity, with behavioral disturbance; N39.0 Urinary tract infection, site not specified; B95.2 Enterococcus as the cause of diseases classified elsewhere; I69.320 Aphasia following cerebral infarction; I10 Essential (primary) hypertension; E03.9 Hypothyroidism, unspecified; E78.5 Hyperlipidemia, unspecified; F41.9 Anxiety disorder, unspecified; G40.909 Epilepsy, unspecified, not intractable, without status epilepticus; M81.0 Age-related osteoporosis without current pathological fracture; Z79.02 Long term (current) use of antithrombotics/antiplatelets; Z79.82 Long term (current) use of aspirin
CPT/HCPCS: 70450; 70544; 70551; 71045; 80053; 80061; 80177; 81001; 82140; 82550; 82948; 83036; 83605; 83735; 84443; 84484; 85025; 85610; 85730; 87040; 87086; 93005; 93306; 93880; 95819; 99285; C9113; J0696; J0744; J1650; J1953; J2060; J7030; P9612